=== PATIENT | male | born 1955 | race Caucasian/White ===

== ENCOUNTER 2022-04-08 09:43 | Emergency (ER) | payer OTHER, SELFPAY ==
[2022-04-08 09:57] VITALS: BP 120/83; PULSE 78; RESP 18; TEMP 36.7; O2SAT 93; BMI 31.6
--- NOTE | 2022-04-08 10:00 | XR_ITS ---
WS: [id number] Exam: XR chest 1V portable [id number] Date/Time of Exam: 04/08/2022 10:01 AM Reason For Exam: dyspnea/cough No priors. The lungs are fully expanded and clear. Normal cardiomediastinal silhouette. No pleural effusions. Re gional bony structures are unremarkable. XR/XR chest 1V portable [id number] IMPRESSION: 1. No acute cardiopulmonary process.
--- NOTE | 2022-04-08 10:10 | ED_ITS ---
HPI - SOB/Dyspnea General: Chief Complaint: Shortness of Breath/Dyspnea Stated Complaint: SOB, rash on right arm Time Seen by Provider: 04/08/22 09:46 Source: patient Mode of arrival: ambulatory Limitations: no limitations History of Present Illness: HPI Narrative: 66-year-old male who presents to the emergency room complaining of shortness of breath and wheezing. He has a history of COPD has been worsening progressively over the last 3 days. He is had a slight increase in cough nonproductive. No fever sweats or chills. MD elicited complaint: shortness of breath and cough Pertinent past history: COPD Onset (ago): day(s) (3) Timing: constant Severity: mild Exacerbating factors: nothing Relieving factors: nothing Known history of: COPD Associated symptoms: Deny abdominal pain, chest congestion, chest pain, cough, diaphoresis, dizziness, extremity pain, fever(s), hemoptysis, lightheadedness, myalgias, nausea, orthopnea, palpitations, paresthesias, polydipsia, polyuria, rash, sense of impending doom, syncope or vomiting Treatment prior to arrival: none Review of Systems Const: Denies: fever(s), chills, fatigue, malaise or diaphoresis ENMT: Denies: throat pain, ear or mastoid pain, nasal discharge or nasal congestion Card: Denies: chest pain, palpitations, lightheadedness, syncope or orthopnea Resp: Reports: dyspnea, non-productive cough and wheezing; Denies: hemoptysis or chest congestion GI: Denies: abdominal pain, nausea or vomiting : Denies: flank pain, difficulty urinating, dysuria, urinary frequency or urinary urgency Musc: Denies: neck pain, back pain or extremity pain Skin/Breast: Denies: rash or pruritus Neuro: Denies: dizziness Endo: Denies: polyuria or polydipsia Physical Exam Const: COMMON NORMALS: no acute distress GENERAL APPEARANCE: cooperative and comfortable ORIENTATION/CONSCIOUSNESS: Yes awake, Yes oriented to person, Yes oriented to place and Yes oriented to time HENMT: COMMON NORMALS: normocephalic, atraumatic, hearing grossly normal bilaterally, external ears normal, EAC's normal, TM's normal bilaterally and Normal nasal mucous membranes and turbinates present HEAD & SCALP: normocephalic and atraumatic NOSE: Normal nasal mucous membranes and turbinates present EXTERNAL EAR: Yes external ears normal EXTERNAL AUDITORY CANAL: EAC's normal TYMPANIC MEMBRANE: TM's normal bilaterally Eye: COMMON NORMALS: Equal, round and reactive pupils present, EOMs intact bilaterally and conjunctivae normal CONJUNCTIVA: Yes conjunctivae normal PUPIL: Yes Equal, round and reactive pupils present and Yes Pupil accommodation reflex normal Neck/C-Spine: COMMON NORMALS: full ROM, no lymphadenopathy, supple and no JVD Resp: COMMON NORMALS: normal respiratory effort, No retractions and No use of accessory muscles AUSCULTATION: wheezes (mild) Cardio: COMMON NORMALS: no JVD, regular rate, regular rhythm and No murmurs present (Cardio) RATE: regular rate RHYTHM: regular rhythm GI: COMMON NORMALS: Soft to palpation and No hepatosplenomegaly present A USCULTATION: Yes normoactive bowel sounds PALPATION: Yes Soft to palpation, No Tenderness to palpation present (GI), No Guarding due to palpation present (GI) and Yes No hepatosplenomegaly present Extremity: COMMON NORMALS: normal to inspection, capillary refill normal, no clubbing, cyanosis or edema, no calf tenderness and no pedal edema Neuro: SENSORIUM/ORIENTATION: Yes oriented to person, Yes oriented to place and Yes oriented to time Skin: COMMON NORMALS: no rashes or lesions noted GENERAL SKIN EXAM: no rashes or lesions noted Course Vital Signs: Vital signs: Vital Signs Temperature 98.0 F 04/08/22 09:57 Pulse Rate 78 04/08/22 11:17 Respiratory Rate 14 04/08/22 11:17 Blood Pressure 138/82 04/08/22 11:17 Pulse Oximetry 93 04/08/22 11:17 Oxygen Delivery Me thod 04/08/22 10:51 MDM - SOB/Dyspnea Medical Decision Making Chest x-ray is unremarkable vital signs stable. He is improved after nebulizers. He received IV Solu-Medrol. We will discharge him home start orals prednisone taper tomorrow and add doxycycline 100 twice daily for 7 days. Encouraged him to follow-up with his primary care doctor suspect he would benefit from a long-acting management of his symptoms. Medical Records I reviewed the patient's medical records. Lab Data I reviewed the patient's lab results. Labs/Radiology: Radiology Impressions Chest X-Ray 04/08/22 10:00 IMPRESSION: 1. No acute cardiopulmonary process. Discharge Plan Discharge Patient Disposition: Home Clinical Impression: Acute exacerbation of chronic obstructive airways disease Condition: Stable Prescriptions: New doxycycline hyclate 100 mg capsule 100 mg PO BID 10 Days Qty: 20 0RF prednisone 20 mg tablet 20 mg PO TID Qty: 15 0RF Rx Instructions: 1 p.o. 3 times daily x3 days, 1 p.o. twice daily x2 days, 1 p.o. daily x2 days albuterol sulfate 90 mcg/actuation HFA aerosol inhaler 2 inh INHALATION Q4H PRN (Reason: shortness of breath or wheezing) Qty: 18 0RF Discharge Orders: Discharge ED (Routine); Ordered 04/08/22 Ordered By: Sandro Gale Referrals: [facility] [Primary Care Provider] - Patient Instructions: Opioid Safety Activity Restrictions/Additional Instructions: Start steroid taper tomorrow. Start oral antibiotics today. Continue to use albuterol as needed follow-up with your doctor within the week to reevaluate. You may benefit from a long-term inhaled corticosteroid and long-acting beta a gonist for your management of your respiratory disease. Coding Level of Care Code ED Lithographic Press Operator Apprentice for Portia Mcneal
[2022-04-08 10:33] VITALS: PULSE 72; RESP 20; O2SAT 92
[2022-04-08] MEDS: ipratropium-albuterol 3 mL Neb INHALATION (10:33)
[2022-04-08 10:39] VITALS: PULSE 75
[2022-04-08 10:51] VITALS: BP 140/89; PULSE 72; RESP 14; O2SAT 94
[2022-04-08 11:17] VITALS: BP 138/82; PULSE 78; RESP 14; O2SAT 93
[2022-04-08 11:53] VITALS: BP 138/72; PULSE 68; O2SAT 93
== END 2022-04-08 11:55 | disposition home or self-care (01) ==
PROVIDERS: Emergency Provider Family Medicine
DX: J44.1 Chronic obstructive pulmonary disease with (acute) exacerbation (principal)
CPT/HCPCS: 71045; 94640; 96374; 99284; J2930

== ENCOUNTER 2022-05-28 15:48 | Emergency (ER) | payer OTHER, SELFPAY ==
[2022-05-28 16:23] VITALS: BP 127/79; PULSE 89; RESP 17; TEMP 36.4; O2SAT 95; BMI 30.6
--- NOTE | 2022-05-28 18:02 | ED_ITS ---
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 Pt states it just scrapped his head. Pt did not have LOC but is on blood thinners. Pt states his tetanus is UTD. Pt denies any neck pain. bleeding is controlled Associated symptoms: Denies chills, fever(s), nausea, syncope or vomiting Review of Systems Const: Denies: fever(s), chills, body aches, change in appetite, change in weight, fatigue, malaise or diaphoresis Eyes: Denies: change in vision, blurry vision, blind spots, photophobia, eye discomfort, eye discharge, eye redness, floaters or seeing flashes ENMT: Denies: throat pain, uvular edema, enlarged tonsils, odynophagia, hoarseness, mouth pain, swelling of lips/tongue, oral sores, bleeding gums, dental pain, dry mouth, ear or mastoid pain, ear discharge, change in hearing, tinnitus, disequilibrium, nasal discharge, nasal congestion, post nasal drip or sinus pain Card: Denies: chest pain, palpitations, irregular heart rhythm, edema, swelling of feet/ankles, lightheadedness, syncope, pre-syncope, dyspnea on exertion, orthopnea, leg pain with exertion or acrocyanosis Resp: Denies: dyspnea, productive cough, non-productive cough, wheezing, stridor, pain on inspiration, change in phlegm color, hemoptysis or chest congestion GI: Denies: abdominal pain, nausea, vomiting, hematemesis, dysphagia, diarrhea, constipation, GI cramping, change in bowel habits or rectal pain : Denies: flank pain, dysuria, urinary frequency, urinary urgency, urinary hesitancy or hematuria Musc: Denies: neck pain, back pain, extremity pain, extremity swelling, joint pain, joint swelling, joint redness, joint warmth or deformity Skin/Breast: Denies: rash, pruritus, erythema, sores, new lesions, changes in skin color or dry skin Neuro: Denies: numbness in extremities, weakness in extremities, sensory changes, lack of coordination, difficulty walking, frequent falls, dizziness, vertigo, confusion, behavioral changes, Slurred speech present, difficulty communicating thoughts or seizure-like activity Psych: Denies: anxiety, depression, suicidal ideation or homicidal ideation Endo: Denies: polyuria, polydipsia, tired all the time, cold intolerance, excessive sweating, flushing, hot flashes or heat intolerance [place]/Lymph: Denies: easy bruising, easy bleeding, petechiae, purpura, enlarged lymph nodes or tender lymph nodes All/Imm: Denies: urticaria, throat swelling, tongue swelling, facial swelling, acute wheezing or itchy eyes Physical Exam Const: COMMON NORMALS: no acute distress, patient oriented x3, healthy appearing, alert and well nourished GENERAL APPEARANCE: cooperative, comfortable, well kempt and well developed; not ill appearing ORIENTATION/CONSCIOUSNESS: Yes awake, Yes oriented to person, Yes oriented to place and Yes oriented to time HENMT: COMMON NORMALS: normocephalic, atraumatic, hearing grossly normal bilaterally, external ears normal, EAC's normal, TM's normal bilaterally, Normal external nose present, Normal nasal mucous membranes and turbinates present and moist oral mucous membranes HEAD & SCALP: normal to inspection, normocephalic and atraumatic FACE & SINUS: normal facial exam, sinuses nontender and face symmetric NOSE: Normal external nose present, Normal nares present, Normal nasal mucous membranes and turbinates present, No nasal discharge present and Abnormal external nose present EXTERNAL EAR: Yes external ears normal and Yes mastoids normal EXTERNAL AUDITORY CANAL: EAC's normal TYMPANIC MEMBRANE: TM's normal bilaterally MOUTH: Normal oral and palatal mucosa present, lip normal, tongue normal and Normal salivary glands and ducts present THROAT: no uvular edema Eye: COMMON NORMALS: Equal, round and reactive pupils present, EOMs intact bilaterally, conjunctivae normal, no scleral icterus and no papilledema GENERAL EYE: appearance normal, both eyes and all related structures EYELID: eyelids normal CONJUNCTIVA: Yes conjunctivae normal SCLERA: sclerae normal CORNEA: Yes corneas normal PUPIL: Yes Equal, round and reactive pupils present DIRECT OPHTHALMOSCOPY: Yes no papilledema Neck/C-Spine: COMMON NORMALS: full ROM, no lymphadenopathy, supple, no meningeal signs, no JVD and Thyroid normal GENERAL: Yes normal visual insp ection and Yes trachea midline THYROID: Thyroid normal CERVICAL SPINE: Yes cervical ROM normal Resp: COMMON NORMALS: normal respiratory effort, No retractions, No use of accessory muscles and clear to auscultation bilaterally EFFORT & INSPECTION: Yes able to speak in complete sentences and Yes symmetric chest movement AUSCULTATION: clear to auscultation bilaterally Cardio: COMMON NORMALS: no JVD, regular rate and regular rhythm RATE: regular rate RHYTHM: regular rhythm : COMMON NORMALS: Yes no CVA tenderness BLADDER/KIDNEY EXAM: Yes no CVA tenderness Back/Pelvis: COMMON NORMALS: no CVA tenderness, thoracic and lumbar spine normal to inspection, no thoracic nor lumbar tenderness, thoraco-lumbar ROM normal and straight leg raise negative bilaterally THORACIC SPINE/UPPER BACK: Yes normal to inspection LUMBAR SPINE/LOWER BACK: Yes normal to inspection Neuro: COMMON NORMALS: patient oriented x3, CN's II-XII intact bilaterally, moves all extremities, no focal motor deficits, no sensory deficits noted, deep tendon reflexes 2+ bilaterally and gait normal SENSORIUM/ORIENTATION: Yes alert, Yes oriented to person, Yes oriented to place and Yes oriented to time MENINGEAL SIGNS: Yes no meningeal signs CRANIAL NERVES: Yes CN normal except as noted SPEECH: speech normal GAIT: Yes Normal gait present SENSORY EXAM: Yes extremities MOTOR EXAM: 5/5 motor strength present throughout Psych: COMMON NORMALS: mental status grossly normal, Normal thought process present, cooperative, normal affect, speech normal, activity/motor behavior normal, denies hallucinations, denies homicidal ideation and denies suicidal ideation APPEARANCE: Yes grossly normal and Yes well kempt ATTITUDE: Yes calm ACTIVITY/MOTOR BEHAVIOR: Yes appropriate eye contact SPEECH: Yes normal speech THOUGHT PROCESS: Normal thought process present THOUGHT CONTENT: Yes Normal thought content present ATTENTION/CONCENTRATION: Yes attention grossly intact MEMORY/COGNITION: Yes memory grossly intact INSIGHT: Good insight present (Psych) JUDGEMENT: Good judgement present (Psych) Skin: COMMON NORMALS: no rashes or lesions noted, turgor normal, no jaundice, no petechiae and no mottling GENERAL SKIN EXAM: no rashes or lesions noted and turgor normal Procedures Laceration Laceration 1: Site: scalp Side (If applicable): left Size (cm): 2 Description: linear Depth: simple, single layer Local Anesthetic: lidocaine 1% Amount of anesthesia used (mL): 2 Pre-repair: wound explored and irrigated extensively Skin layer closed with: other (5 juvenal) Course Vital Signs: Vital signs: Vital Signs Temperature 97.6 F 05/28/22 16:23 Pulse Rate 89 05/28/22 16:23 Respiratory Rate 17 05/28/22 16:23 Blood Pressure 127/79 05/28/22 16:23 Pulse Oximetry 95 05/28/22 16:23 Oxygen Delivery Me thod 05/28/22 16:23 MDM - Wound/Laceration Medical Decision Making Patient is well appearing non toxic and in no acute distress. 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 Pt states it just scrapped his head. Pt did not have LOC but is on blood thinners. Pt states his tetanus is UTD. Pt denies any neck pain. bleeding is controlled Pt does not want a CT head. I discussed with patient the concerns but he states he does not feel this is necessary. Please see procedure note for wound repair. I discussed return precautions as well as follow up with patient Discharge Plan Discharge Condition: Stable Prescriptions: No Action prednisone 20 mg tablet 20 mg PO TID Qty: 15 0RF Rx Instructions: 1 p.o. 3 times daily x3 days, 1 p.o. twice daily x2 days, 1 p.o. daily x2 days albuterol sulfate 90 mcg/actuation HFA aerosol inhaler 2 inh INHALATION Q4H PRN (Reason: shortness of breath or wheezing) Qty: 18 0RF Coding Level of Care Code ED Associate Professor Of Communication for Portia Mcneal
--- NOTE | 2022-06-05 11:31 | PC.NURSE ---
PT RETURNED FOR STAPLE REMOVAL. 5 JOE REMOVED. WOUND CLEAN, DRY, NO REDNESS NOTED.
== END 2022-05-28 18:19 | disposition home or self-care (01) ==
PROVIDERS: Emergency Provider Registered Nurse
DX: S01.01XA Laceration without foreign body of scalp, initial encounter (principal); W22.09XA Striking against other stationary object, initial encounter
CPT/HCPCS: 12001; 99283

== ENCOUNTER → 2022-06-03 08:44 | Outpatient (BNVA) | payer OTHER, SELFPAY | PROVIDERS: PCP Emergency Medicine Emergency Medical Services; Visit Provider Internal Medicine Pulmonary Disease | DX: J44.9 Chronic obstructive pulmonary disease, unspecified (principal); F17.210 Nicotine dependence, cigarettes, uncomplicated; R06.09 Other forms of dyspnea; Z12.2 Encounter for screening for malignant neoplasm of respiratory organs; Z71.6 Tobacco abuse counseling; G47.33 Obstructive sleep apnea (adult) (pediatric); Z99.89 Dependence on other enabling machines and devices; Z86.711 Personal history of pulmonary embolism; Z79.01 Long term (current) use of anticoagulants | CPT/HCPCS: 99204 ==

== ENCOUNTER 2022-06-24 07:35 | Outpatient (CLI) | payer OTHER, SELFPAY | END 2022-06-24 07:36 | disposition home or self-care (01) | LOC: RT 07:38 | PROVIDERS: PCP Emergency Medicine Emergency Medical Services; Visit Provider Internal Medicine Pulmonary Disease | DX: J44.9 Chronic obstructive pulmonary disease, unspecified (principal) | CPT/HCPCS: 94060; 94618; 94726; 94729; J7613 ==

== ENCOUNTER 2022-06-24 08:28 | Outpatient (CLI) | payer OTHER, SELFPAY ==
--- NOTE | 2022-06-24 08:00 | CT_ITS ---
WS: [id number] LDCT LUNG CANCER SCREENING TECHNIQUE: Noncontrast CT of the chest with coronal and sagittal reformatted images. CLINICAL INFORMATION: lung screening COMPARISON: None. DLP: 74.40 mGy.cm DIvol: Mean CTDIvol: 1.60 (mGy) All CT scans at [facility] use at least one of these dose optimization techniques: automat ed exposure control; mA and/or kV adjustment per patient size (includes targeted exams where dose is matched to clinical indication); or iterative reconstruction. FINDINGS: No suspicious pulmonary parenchymal opacities. No acute pulmonary infiltrates. No focal pneumonia or pleural fluid. Aortic calcification. No mediastinal or hilar lymphadenopathy. No axillary lymphadenop athy. Adrenal glands are normal. Cholecystectomy clips. Normal GE junction. Chronic LEFT rib fractures with callus formation. Chronic anterior wedging in the upper thoracic spine. CT/CT lung screening [id number] IMPRESSION: LUNG-RADS: 1-Negative FOLLOW UP: 12 Month: Continue annual screening with LDCT
== END 2022-06-24 08:29 | disposition home or self-care (01) ==
LOC: RAD 08:28
PROVIDERS: PCP Emergency Medicine Emergency Medical Services; Visit Provider Internal Medicine Pulmonary Disease
DX: Z12.2 Encounter for screening for malignant neoplasm of respiratory organs (principal); F17.210 Nicotine dependence, cigarettes, uncomplicated; J44.9 Chronic obstructive pulmonary disease, unspecified
CPT/HCPCS: 71271

== ENCOUNTER 2022-07-31 10:25 | Emergency (ER) | payer OTHER, SELFPAY ==
[2022-07-31 10:31] VITALS: BP 115/70; PULSE 79; RESP 24; TEMP 36.1; O2SAT 95; BMI 29.0
[2022-07-31 11:36] LABS: Basophils # 0.1 10^3/uL (0.0-0.1); Basophils % 1.2 %; Eosinophils # 0.5 10^3/uL (0.0-0.8); Eosinophils % 5.6 %; Hematocrit 41.1 % (42.0-52.0); Hemoglobin 13.1 g/dL (11.7-16.6); Lymphocytes % 11.3 %; Mean Corpuscular HGB Conc 31.9 g/dL (30.0-36.0); Mean Corpuscular Volume 91.1 fl (80-94); Mean Platelet Volume 10.5 fL (7.4-10.4); Monocytes # 0.6 10^3/uL (0.2-0.9); Monocytes % 6.8 %; Neutrophils # 6.82 10^3/uL (1.8-7.7); Neutrophils % 74.7 %; Nucleated Red Blood Cells % 0 %; Platelet Count 207 10^3/cmm (130-400); Red Blood Count 4.51 10^6/uL (4.1-5.3); Red Cell Distribution Width 12.9 % (12.1-15.1); White Blood Count 9.1 10^3/uL (4.0-10.0)
--- NOTE | 2022-07-31 11:48 | XR_ITS ---
WS: [id number] Exam: XR ribs RT mn 3V w CXR1V [id number] Date/Time of Exam: 07/31/2022 11:48 AM Reason For Exam: pain There appears to be a fracture of the posterior lateral right 10th rib. No other obvious rib fracture s are seen. The right lung is clear and fully expanded. XR/XR ribs RT mn 3V w CXR1V [id number] IMPRESSION: 1. Fracture of the posterior lateral right 10th rib. No pneumothorax.
--- NOTE | 2022-07-31 11:48 | ED_ITS ---
HPI - Abdominal Pain General: Chief Complaint: Abdominal Pain Stated Complaint: fall,abd pain Time Seen by Provider: 07/31/22 10:26 [facility] ED PFSH: Medical History (Updated 06/06/22 @ 09:29 by Ronal Myers MD) BETH on CPAP Pulmonary embolism Social History Smoking and tobacco status: current some day smoker (1 cig/day) cigarettes Packs smoked per day: 2 Years cigarettes smoked: 51 [ Other cigarette details: Started at age 15.] Course Vital Signs: Vital signs: Vital Signs Temperature 96.9 F L 07/31/22 10:31 Pulse Rate 79 07/31/22 10:31 Respiratory Rate 24 H 07/31/22 10:31 Blood Pressure 115/70 07/31/22 10:31 Pulse Oximetry 95 07/31/22 10:31 MDM - Abdominal Pain Lab Data 07/31/22 11:28 07/31/22 11:28 Labs/Radiology: Laboratory Results WBC 9.1 10^3/uL (4.0-10.0) 07/31/22 11:28 RBC 4.51 10^6/uL (4.1-5.3) 07/31/22 11:28 Hgb 13.1 g/dL (11.7-16.6) 07/31/22 11:28 Hct 41.1 % (42.0-52.0) L 07/31/22 11:28 MCV 91.1 fl (80-94) 07/31/22 11:28 MCH 29.0 pg (28.0-34.0) 07/31/22 11:28 MCHC 31.9 g/dL (30.0-36.0) 07/31/22 11:28 RDW 12.9 % (12.1-15.1) 07/31/22 11:28 Plt Count 207 10^3/cmm (130-400) 07/31/22 11:28 MPV 10.5 fL (7.4-10.4) H 07/31/22 11:28 Neut % (Auto) 74.7 % 07/31/22 11:28 Lymph % (Auto) 11.3 % 07/31/22 11:28 [place] % (Auto) 6.8 % 07/31/22 11:28 Eos % (Auto) 5.6 % 07/31/22 11:28 Baso % (Auto) 1.2 % 07/31/22 11:28 Neut # (Auto) 6.82 10^3/uL (1.8-7.7) 07/31/22 11:28 Lymph # (Auto) 1.0 10^3/uL (0.8-4.8) 07/31/22 11:28 [place] # (Auto) 0.6 10^3/uL (0.2-0.9) 07/31/22 11:28 Eos # (Auto) 0.5 10^3/uL (0.0-0.8) 07/31/22 11:28 Baso # (Auto) 0.1 10^3/uL (0.0-0.1) 07/31/22 11:28 Nucleated RBC % (auto) 0 % 07/31/22 11:28 Nucleated RBCs # 0.0 /100WBC 07/31/22 11:28 Discharge Plan Discharge Condition: Stable Prescriptions: No Action buspirone 15 mg tablet 15 mg PO TID ipratropium-albuterol 0.5 mg-3 mg(2.5 mg base)/3 mL solution for nebulization 3 ml inhalation Q6H PRN levalbuterol tartrate 45 mcg/actuation HFA aerosol inhaler 2 inh inhalation Q6H PRN (Reason: shortness of breath or wheezing) guaifenesin 400 mg tablet 400 mg PO QID PRN (Reason: congestion) hydroxyzine HCl 50 mg tablet 50 mg PO BID PRN meloxicam 15 mg tablet 15 mg PO DAILY PRN rivaroxaban 20 mg tablet 20 mg PO DAILY Rx Instructions: must administer with evening meal sertraline 100 mg tablet 200 mg PO DAILY atorvastatin 40 mg tablet 20 mg PO DAILY Breztri Aerosphere 160-9-4.8 mcg/actuation HFA aerosol inhaler 2 inh inhalation BID Qty: 10.7 3RF prednisone 20 mg tablet 20 mg PO TID Qty: 15 0RF Rx Instructions: 1 p.o. 3 times daily x3 days, 1 p.o. twice daily x2 days, 1 p.o. daily x2 days Referrals: Dilshad Anderson DO [Primary Care Provider] - Coding Level of Care Code ED Roll Builder for Portia Mcneal
[2022-07-31 11:52] LABS: Alanine Aminotransferase 16 U/L (0-41); Albumin Level 4.3 g/dL (3.5-5.2); Alkaline Phosphatase 83 U/L (40-130); Anion Gap 12.8 (5-19); Aspartate Amino Transferase 17 U/L (0-40); Blood Urea Nitrogen 20 mg/dL (8-23); Calcium 9.2 mg/dL (8.5-10.5); Carbon Dioxide 27 mmol/L (22-29); Chloride 104 mmol/L (98-107); Globulin 2.3 g/dL (1.3-4.6); Glomerular Filtration Rate 83.9 mL/min (90-130); Glucose 79 mg/dL (65-115); Lipase 23 U/L (13-60); Osmolality Calculated 292 mOsm/kg (285-295); Potassium 3.8 mmol/L (3.5-5.1); Sodium 140 mmol/L (136-145); Total Bilirubin 0.5 mg/dL (0.15-1.2); Total Protein 6.6 g/dL (6.6-8.7)
[2022-07-31 13:43] VITALS: BP 116/80; PULSE 84; RESP 20; O2SAT 94
--- NOTE | 2022-08-01 07:07 | ED_ITS ---
HPI - Chest Pain General: Chief Complaint: Abdominal Pain Stated Complaint: fall,abd pain Time Seen by Provider: 07/31/22 10:26 Source: patient Mode of arrival: ambulatory History of Present Illness: 58-year-old male presents to the emergency room with complaints of rib pain. He was leaning over the edge of the board doing a work he felt the sharp pain he stretched and stood up he felt a popping sensation with deep inspiration and movement he now has sharp pain on the lower right ribs. No hemoptysis no shortness of breath no radiation of the pain in the neck arms or back. Reproducible with palpation and motion and deep i nspiration MD complaint: chest pain Onset (ago): hour(s) Timing of current episode: constant Prior episodes: No Pain location: right chest Pain radiation: none Severity: moderate Quality: sharp Relieving factors: remaining still Exacerbating factors: inspiration, palpation and movement Associated symptoms: Deny abdominal pain, diaphoresis, dyspnea, fever(s), leg edema, nausea, palpitations, sense of impending doom, syncope or vomiting Treatment prior to arrival: none Review of Systems Const: Denies: fever(s), chills, fatigue, malaise or diaphoresis ENMT: Denies: throat pain, ear or mastoid pain, nasal discharge or nasal congestion Card: Reports: chest pain; Denies: palpitations, irregular heart rhythm, edema, swelling of feet/ankles or syncope Resp: Denies: dyspnea GI: Denies: abdominal pain, nausea or vomiting : Denies: flank pain, dysuria, urinary frequency or urinary urgency Skin/Breast: Denies: rash or pruritus PFSH ED PFSH: Medical History BETH on CPAP Pulmonary embolism Social History Smoking and tobacco status: current some day smoker (1 cig/day) cigarettes Packs smoked per day: 2 Years cigarettes smoked: 51 [ Other cigarette details: Started at age 15.] Physical Exam Const: GENERAL APPEARANCE: cooperative and comfortable ORIENTATION/CONSCIOUSNESS: Yes awake, Yes oriented to person, Yes oriented to place and Yes oriented to time HENMT: COMMON NORMALS: normocephalic, atraumatic and hearing grossly normal bilaterally HEAD & SCALP: normocephalic and atraumatic Resp: COMMON NORMALS: normal respiratory effort, No retractions, No use of accessory muscles and clear to auscultation bilaterally AUSCULTATION: clear to auscultation bilaterally Cardio: COMMON NORMALS: regular rate, regular rhythm and No murmurs present (Cardio) RATE: regular rate RHYTHM: regular rhythm GI: COMMON NORMALS: Soft to palpation and No hepatosplenomegaly present AUSCULTATION: Yes normoactive bowel sounds PALPATION: Yes Soft to palpation, No Tenderness to palpation present (GI), No Guarding due to palpation present (GI) and Yes No hepatosplenomegaly present Extremity: COMMON NORMALS: normal to inspection, capillary refill normal, no clubbing, cyanosis or edema, no calf tenderness and no pedal edema Neuro: SENSORIUM/ORIENTATION: Yes oriented to person, Yes oriented to place and Yes oriented to time Skin: COMMON NORMALS: no rashes or lesions noted GENERAL SKIN EXAM: no rashes or lesions noted Course Vital Signs: Vital signs: Vital Signs Temperature 96.9 F L 07/31/22 10:31 Pulse Rate 84 07/31/22 13:43 Respiratory Rate 20 H 07/31/22 13:43 Blood Pressure 116/80 07/31/22 13:43 Pulse Oximetry 94 07/31/22 13:43 MDM - Chest Pain Medical Decision Making Plain film shows nondisplaced 10th rib fracture consistent with physical exam findings with reproducible pain with palpation deep inspiration and movement. Patient tolerating well discharged home follow-up as needed Medical Records I reviewed the patient's medical records. Lab Data I reviewed the patient's lab results. 07/31/22 11:28 07/31/22 11:28 Radiology Impressions Ribs X-Ray 07/31/22 11:48 IMPRESSION: 1. Fracture of the posterior lateral right 10th rib. No pneumothorax. Laboratory Results WBC 9.1 10^3/uL (4.0-10.0) 07/31/22 11:28 RBC 4.51 10^6/uL (4.1-5.3) 07/31/22 11:28 Hgb 13.1 g/dL (11.7-16.6) 07/31/22 11:28 Hct 41.1 % (42.0-52.0) L 07/31/22 11:28 MCV 91.1 fl (80-94) 07/31/22 11:28 MCH 29.0 pg (28.0-34.0) 07/31/22 11:28 MCHC 31.9 g/dL (30.0-36.0) 07/31/22 11:28 RDW 12.9 % (12.1-15.1) 07/31/22 11:28 Plt Count 207 10^3/cmm (130-400) 07/31/22 11:28 MPV 10.5 fL (7.4-10.4) H 07/31/22 11:28 Neut % (Auto) 74.7 % 07/31/22 11:28 Lymph % (Auto) 11.3 % 07/31/22 11:28 [place] % (Auto) 6.8 % 07/31/22 11:28 Eos % (Auto) 5.6 % 07/31/22 11:28 Baso % (Auto) 1.2 % 07/31/22 11:28 Neut # (Auto) 6.82 10^3/uL (1.8-7.7) 07/31/22 11:28 Lymph # (Auto) 1.0 10^3/uL (0.8-4.8) 07/31/22 11:28 [place] # (Auto) 0.6 10^3/uL (0.2-0.9) 07/31/22 11:28 Eos # (Auto) 0.5 10^3/uL (0.0-0.8) 07/31/22 11:28 Baso # (Auto) 0.1 10^3/uL (0.0-0.1) 07/31/22 11:28 Nucleated RBC % (auto) 0 % 07/31/22 11:28 Nucleated RBCs # 0.0 /100WBC 07/31/22 11:28 Sodium 140 mmol/L (136-145) 07/31/22 11:28 Potassium 3.8 mmol/L (3.5-5.1) 07/31/22 11:28 Chloride 104 mmol/L (98-107) 07/31/22 11:28 Carbon Dioxide 27 mmol/L (22-29) 07/31/22 11:28 Anion Gap 12.8 (5-19) 07/31/22 11:28 BUN 20 mg/dL (8-23) 07/31/22 11:28 Creatinine 0.9 mg/dL (0.7-1.2) 07/31/22 11:28 GFR Calculation 83.9 mL/min (90-130) L 07/31/22 11:28 Glucose 79 mg/dL (65-115) 07/31/22 11:28 Calculated Osmolality 292 mOsm/kg (285-295) 07/31/22 11:28 Calcium 9.2 mg/dL (8.5-10.5) 07/31/22 11:28 Total Bilirubin 0.5 mg/dL (0.15-1.2) 07/31/22 11:28 AST 17 U/L (0-40) 07/31/22 11:28 ALT 16 U/L (0-41) 07/31/22 11:28 Alkaline Phosphatase 83 U/L (40-130) 07/31/22 11:28 Total Protein 6.6 g/dL (6.6-8.7) 07/31/22 11:28 Albumin 4.3 g/dL (3.5-5.2) 07/31/22 11:28 Globulin 2.3 g/dL (1.3-4.6) 07/31/22 11:28 Lipase 23 U/L (13-60) 07/31/22 11:28 Discharge Plan Discharge Patient Disposition: Home Clinical Impression: Fracture of rib Condition: Stable Prescriptions: New hydrocodone-acetaminophen 5-325 mg tablet 1 tab PO Q6H PRN (Reason: pain) Qty: 25 0RF No Action buspirone 15 mg tablet 15 mg PO TID ipratropium-albuterol 0.5 mg-3 mg(2.5 mg base)/3 mL solution for nebulization 3 ml inhalation Q6H PRN levalbuterol tartrate 45 mcg/actuation HFA aerosol inhaler 2 inh inhalation Q6H PRN (Reason: shortness of breath or wheezing) guaifenesin 400 mg tablet 400 mg PO QID PRN (Reason: congestion) hydroxyzine HCl 50 mg tablet 50 mg PO BID PRN meloxicam 15 mg tablet 15 mg PO DAILY PRN rivaroxaban 20 mg tablet 20 mg PO DAILY Rx Instructions: must administer with evening meal sertraline 100 mg tablet 200 mg PO DAILY atorvastatin 40 mg tablet 20 mg PO DAILY Agustina Garciaphere 160-9-4.8 mcg/actuation HFA aerosol inhaler 2 inh inhalation BID Qty: 10.7 3RF prednisone 20 mg tablet 20 mg PO TID Qty: 15 0RF Rx Instructions: 1 p.o. 3 times daily x3 days, 1 p.o. twice daily x2 days, 1 p.o. daily x2 days Discharge Orders: Discharge ED (Routine); Ordered 07/31/22 Ordered By: Sandro Gale Referrals: Dilshad Anderson, [Primary Care Provider] - Discharge Diet: Usual diet Discharge Activity: Increase activity as tolerated Patient Instructions: Opioid Safety, Pain Management Activity Restrictions/Additional Instructions: Seen today for rib pain. X-ray showed you did have a small fracture on the 10th rib on the right. Use medication above. Avoid any activities that exacerbate the pain. Coding Level of Care Code ED Bulb Sorter for Portia Mcneal
== END 2022-07-31 13:44 | disposition home or self-care (01) ==
PROVIDERS: Emergency Provider Family Medicine; PCP Emergency Medicine Emergency Medical Services
DX: S22.31XA Fracture of one rib, right side, initial encounter for closed fracture (principal); F17.210 Nicotine dependence, cigarettes, uncomplicated; X50.9XXA Other and unspecified overexertion or strenuous movements or postures, initial encounter
CPT/HCPCS: 71101; 80053; 83690; 85025; 99284

== ENCOUNTER 2022-08-03 15:10 | Emergency (ER) | payer OTHER, SELFPAY ==
[2022-08-03 15:11] VITALS: BP 128/84; PULSE 86; RESP 18; TEMP 36.9; O2SAT 93; BMI 30.2
--- NOTE | 2022-08-03 15:16 | XRR_ITS ---
PROCEDURE INFORMATION: Exam: XR Chest Exam date and time: 08/03/2022 3:32 PM Age: 66 years old Clinical indication: Cough and shortness of breath; Additional info: Dyspnea/cough TECHNIQUE: Imaging protocol: Radiologic exam of the chest. Views: 1 view. COMPARISON: CR XR ribs RT mn 3V w CXR1V [id number] 07/31/2022 11:53 AM FINDINGS: Lungs: Mild COPD. No consolidation has developed. Pleural spaces: Unremarkable. No pleural effusion. No pneumothorax. Heart/Mediastinum: Heart is normal size. Diffuse vascular calcification. Bones/joints: A few subtle bilateral old rib deformities are likely. Suspected right 10th rib acute fracture on recent x-ray rib series is not well seen at this time. XR/XR chest 1V portable [id number] IMPRESSION: 1. No definite acute finding. 2. The known, suspected right 10th rib fracture is better seen on the right rib x-ray series from 07/31/2022. See that report. From that time, there is no evidence of pneumothorax or other change.
--- NOTE | 2022-08-03 15:16 | W.ED.GENADLT ---
HPI - General Adult General: Chief complaint: Shortness of Breath/Dyspnea Stated complaint: SOB Time Seen by Provider: 08/03/22 15:14 Source: patient Mode of arrival: EMS History of Present Illness: 66-year-old male was seen 2 days ago with 1/10 rib fracture he still having shortness of breath and pain he still has about half the hydrocodone left over he gave me is not had any hemoptysis. No fever sweats chills or productive cough he has a history of COPD. Onset (ago): day(s) (2) Severity: moderate Quality: sharp Pain Consistency: intermittent Relieving factors: rest Exacerbating factors: movement Associated symptoms: Reports chest pain; Deny confusion, cough, diaphoresis, decreased appetite, dyspnea, fevers/chills, headache(s), malaise, nausea, rash, palpitations, seizures, short of breath, syncope, vomiting or weakness Treatments prior to arrival: none Review of Systems Const: Denies: fever(s), chills, malaise or diaphoresis ENMT: Denies: throat pain, ear or mastoid pain, nasal discharge or nasal congestion Card: Reports: chest pain; Denies: palpitations, irregular heart rhythm, edema, syncope or dyspnea on exertion Resp: Denies: dyspnea, productive cough, non-productive cough or wheezing GI: Denies: abdominal pain, nausea or vomiting : Denies: flank pain, dysuria, urinary frequency or urinary urgency Skin/Breast: Denies: rash Neuro: Denies: headache(s) or confusion PFSH ED PFSH: Medical History BETH on CPAP Pulmonary embolism Social History Smoking and tobacco status: current some day smoker (1 cig/day) cigarettes Packs smoked per day: 2 Years cigarettes smoked: 51 [ Other cigarette details: Started at age 15.] Physical Exam Const: COMMON NORMALS: no acute distress GENERAL APPEARANCE: cooperative and comfortable ORIENTATION/CONSCIOUSNESS: Yes awake, Yes oriented to person, Yes oriented to place and Yes oriented to time HENMT: COMMON NORMALS: normocephalic, atraumatic and hearing grossly normal bilaterally HEAD & SCALP: normocephalic and atraumatic Resp: COMMON NORMALS: normal respiratory effort, No retractions, No use of accessory muscles and clear to auscultation bilaterally AUSCULTATION: clear to auscultation bilaterally Cardio: COMMON NORMALS: regular rate, regular rhythm and No murmurs present (Cardio) RATE: regular rate RHYTHM: regular rhythm GI: COMMON NORMALS: Soft to palpation and No hepatosplenomegaly present AUSCULTATION: Yes normoactive bowel sounds PALPATION: Yes Soft to palpation, No Tenderness to palpation present (GI), No Guarding due to palpation present (GI) and Yes No hepatosplenomegaly present Extremity: COMMON NORMALS: normal to inspection, capillary refill normal, no clubbing, cyanosis or edema, no calf tenderness and no pedal edema Neuro: SENSORIUM/ORIENTATION: Yes oriented to person, Yes oriented to place and Yes oriented to time Skin: COMMON NORMALS: no rashes or lesions noted GENERAL SKIN EXAM: no rashes or lesions noted Course Vital Signs: Vital signs: Vital Signs Temperature 98.5 F 08/03/22 15:11 Pulse Rate 81 08/03/22 16:45 Respiratory Rate 16 08/03/22 16:45 Blood Pressure 128/84 08/03/22 16:45 Pulse Oximetry 92 08/03/22 16:45 Oxygen Delivery Me thod 08/03/22 16:45 MDM - General Adult Medical Decision Making Oxygen saturations are normal pain is well controlled in the emergency room he still has some coarse breath sounds expiratory wheezes is not been using albuterol regularly. After nebulizer treatment he is improved. Discharge home offered albuterol nebs he states he already has some at home encouraged him to use those regularly continue to use pain medications as previously prescribed follow-up with primary care doctor as needed. Medical Records I reviewed the patient's medical records. Lab Data I reviewed the patient's lab results. 08/03/22 14:52 08/03/22 14:52 Radiology Impressions Chest X-Ray 08/03/22 15:16 IMPRESSION: 1. No definite acute finding. 2. The known, suspected right 10th rib fracture is better seen on the right rib x-ray series from 07/31/2022. See that report. From that time, there is no evidence of pneumothorax or other change. Laboratory Results WBC 6.2 10^3/uL (4.0-10.0) 08/03/22 14:52 RBC 4.42 10^6/uL (4.1-5.3) 08/03/22 14:52 Hgb 12.8 g/dL (11.7-16.6) 08/03/22 14:52 Hct 39.0 % (42.0-52.0) L 08/03/22 14:52 MCV 88.2 fl (80-94) 08/03/22 14:52 MCH 29.0 pg (28.0-34.0) 08/03/22 14:52 MCHC 32.8 g/dL (30.0-36.0) 08/03/22 14:52 RDW 12.7 % (12.1-15.1) 08/03/22 14:52 Plt Count 232 10^3/cmm (130-400) 08/03/22 14:52 MPV 11.0 fL (7.4-10.4) H 08/03/22 14:52 Neut % (Auto) 64.7 % 08/03/22 14:52 Lymph % (Auto) 14.8 % 08/03/22 14:52 [place] % (Auto) 7.6 % 08/03/22 14:52 Eos % (Auto) 11.4 % 08/03/22 14:52 Baso % (Auto) 1.0 % 08/03/22 14:52 Neut # (Auto) 3.98 10^3/uL (1.8-7.7) 08/03/22 14:52 Lymph # (Auto) 0.9 10^3/uL (0.8-4.8) 08/03/22 14:52 [place] # (Auto) 0.5 10^3/uL (0.2-0.9) 08/03/22 14:52 Eos # (Auto) 0.7 10^3/uL (0.0-0.8) 08/03/22 14:52 Baso # (Auto) 0.1 10^3/uL (0.0-0.1) 08/03/22 14:52 Nucleated RBC % (auto) 0 % 08/03/22 14:52 Nucleated RBCs # 0.0 /100WBC 08/03/22 14:52 Sodium 139 mmol/L (136-145) 08/03/22 14:52 Potassium 3.8 mmol/L (3.5-5.1) 08/03/22 14:52 Chloride 102 mmol/L (98-107) 08/03/22 14:52 Carbon Dioxide 27 mmol/L (22-29) 08/03/22 14:52 Anion Gap 13.8 (5-19) 08/03/22 14:52 BUN 14 mg/dL (8-23) 08/03/22 14:52 Creatinine 1.0 mg/dL (0.7-1.2) 08/03/22 14:52 GFR Calculation 74.3 mL/min (90-130) L 08/03/22 14:52 Glucose 93 mg/dL (65-115) 08/03/22 14:52 Calculated Osmolality 288 mOsm/kg (285-295) 08/03/22 14:52 Calcium 9.5 mg/dL (8.5-10.5) 08/03/22 14:52 Total Bilirubin 0.2 mg/dL (0.15-1.2) 08/03/22 14:52 AST 16 U/L (0-40) 08/03/22 14:52 ALT 13 U/L (0-41) 08/03/22 14:52 Alkaline Phosphatase 94 U/L (40-130) 08/03/22 14:52 Total Protein 6.7 g/dL (6.6-8.7) 08/03/22 14:52 Albumin 4.2 g/dL (3.5-5.2) 08/03/22 14:52 Globulin 2.5 g/dL (1.3-4.6) 08/03/22 14:52 Discharge Plan Discharge Patient Disposition: Home Clinical Impression: Fracture of rib, COPD (chronic obstructive pulmonary disease) Condition: Stable Prescriptions: No Action buspirone 15 mg tablet 15 mg PO TID ipratropium-albuterol 0.5 mg-3 mg(2.5 mg base)/3 mL solution for nebulization 3 ml inhalation Q6H PRN levalbuterol tartrate 45 mcg/actuation HFA aerosol inhaler 2 inh inhalation Q6H PRN (Reason: shortness of breath or wheezing) guaifenesin 400 mg tablet 400 mg PO QID PRN (Reason: congestion) hydroxyzine HCl 50 mg tablet 50 mg PO BID PRN meloxicam 15 mg tablet 15 mg PO DAILY PRN rivaroxaban 20 mg tablet 20 mg PO DAILY Rx Instructions: must administer with evening meal sertraline 100 mg tablet 200 mg PO DAILY atorvastatin 40 mg tablet 20 mg PO DAILY Breztri Aerosphere 160-9-4.8 mcg/actuation HFA aerosol inhaler 2 inh inhalation BID Qty: 10.7 3RF hydrocodone-acetaminophen 5-325 mg tablet 1 tab PO Q6H PRN (Reason: pain) Qty: 25 0RF prednisone 20 mg tablet 20 mg PO TID Qty: 15 0RF Rx Instructions: 1 p.o. 3 times daily x3 days, 1 p.o. twice daily x2 days, 1 p.o. daily x2 days Discharge Orders: Discharge ED (Routine); Ordered 08/03/22 Ordered By: Sandro Gale Referrals: Dilshad Anderson DO [Primary Care Provider] - Discharge Diet: Usual diet Discharge Activity: Increase activity as tolerated Patient Instructions: Opioid Safety, Pain Management Activity Restrictions/Additional Instructions: Continue to use hydrocodone previously prescribed for pain. Use your nebulizer for shortness of breath cough or wheezing. Follow-up with your primary care doctor in the next 2 to 3 days. Coding Level of Care Code ED Crematory Attendant for Portia Mcneal
--- NOTE | 2022-08-03 15:44 | ECG_ITS ---
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 Measurements Intervals [place] Rate: 83 P: 60 NV: 150 QRS: 48 QRSD: 105 T: 61 QT: 354 QTc: 418 Interpretive Statements SINUS RHYTHM POSSIBLE INFERIOR MYOCARDIAL INFARCTION , PROBABLY OLD [30 ms Q WAVE IN II/aVF] No previous ECG available for comparison Electronically Signed On 08-04-2022 8:02:05 MULTICUT LINE OPERATOR by Bridget Rodriguez M.D. [email or web address]
[2022-08-03] MEDS: ipratropium-albuterol 3 mL Neb INHALATION (15:51)
[2022-08-03 15:52] VITALS: PULSE 88; RESP 16; O2SAT 94
[2022-08-03 16:00] VITALS: PULSE 85; RESP 16; O2SAT 94
[2022-08-03 16:01] LABS: Basophils # 0.1 10^3/uL (0.0-0.1); Eosinophils # 0.7 10^3/uL (0.0-0.8); Eosinophils % 11.4 %; Hemoglobin 12.8 g/dL (11.7-16.6); Lymphocytes # 0.9 10^3/uL (0.8-4.8); Lymphocytes % 14.8 %; Mean Corpuscular HGB Conc 32.8 g/dL (30.0-36.0); Mean Corpuscular Volume 88.2 fl (80-94); Monocytes # 0.5 10^3/uL (0.2-0.9); Monocytes % 7.6 %; Neutrophils # 3.98 10^3/uL (1.8-7.7); Neutrophils % 64.7 %; Nucleated Red Blood Cells % 0 %; Platelet Count 232 10^3/cmm (130-400); Red Blood Count 4.42 10^6/uL (4.1-5.3); Red Cell Distribution Width 12.7 % (12.1-15.1); White Blood Count 6.2 10^3/uL (4.0-10.0)
[2022-08-03 16:13] LABS: Alanine Aminotransferase 13 U/L (0-41); Albumin Level 4.2 g/dL (3.5-5.2); Alkaline Phosphatase 94 U/L (40-130); Anion Gap 13.8 (5-19); Aspartate Amino Transferase 16 U/L (0-40); Blood Urea Nitrogen 14 mg/dL (8-23); Calcium 9.5 mg/dL (8.5-10.5); Carbon Dioxide 27 mmol/L (22-29); Chloride 102 mmol/L (98-107); Globulin 2.5 g/dL (1.3-4.6); Glomerular Filtration Rate 74.3 mL/min (90-130); Glucose 93 mg/dL (65-115); Osmolality Calculated 288 mOsm/kg (285-295); Potassium 3.8 mmol/L (3.5-5.1); Sodium 139 mmol/L (136-145); Total Bilirubin 0.2 mg/dL (0.15-1.2); Total Protein 6.7 g/dL (6.6-8.7)
[2022-08-03 16:45] VITALS: BP 128/84; PULSE 81; RESP 16; O2SAT 92
== END 2022-08-03 16:59 | disposition home or self-care (01) ==
PROVIDERS: Emergency Provider Family Medicine; PCP Emergency Medicine Emergency Medical Services
DX: J44.9 Chronic obstructive pulmonary disease, unspecified (principal); S22.31XA Fracture of one rib, right side, initial encounter for closed fracture; F17.210 Nicotine dependence, cigarettes, uncomplicated; X58.XXXA Exposure to other specified factors, initial encounter
CPT/HCPCS: 71045; 80053; 85025; 93005; 94640; 99285

== ENCOUNTER 2022-08-04 04:51 | Inpatient (IN) | payer OTHER, SELFPAY ==
[2022-08-04] VITALS (68 sets, daily range): BP systolic 127–162; BP diastolic 69–106; PULSE 53–797; RESP 13–33; TEMP 36.7–37.2; O2SAT 92–97; BMI 30.2
--- NOTE | 2022-08-04 04:55 | XRR_ITS ---
PROCEDURE INFORMATION: Exam: XR Chest Exam date and time: 08/04/2022 5:16 AM Age: 66 years old Clinical indication: Cough and shortness of breath and wheezing; Patient HX: C/O worsening SOB and dyspnea. Audible wheezing. Sustained lateral RT 10th rib fracture from fall on 07/31/2022. History of copd. TECHNIQUE: Imaging protocol: Radiologic exam of the chest. Views: 1 view. COMPARISON: CR XR chest 1V portable [id number] 08/03/2022 3:32 PM FINDINGS: Lungs: Mild COPD.. No consolidation. Pleural spaces: Unremarkable. No pleural effusion. No pneumothorax. Heart/Mediastinum: Unremarkable. No cardiomegaly. Vasculature: Advanced diffuse vascular calcification noted. Bones/joints: A few old left lateral rib deformities are possible but not definite. XR/XR chest 1V portable [id number] IMPRESSION: No acute findings.
--- NOTE | 2022-08-04 04:56 | ED_ITS ---
Documented by User: Moose Flores MD 08/04/22 04:58 HPI - SOB/Dyspnea General: Chief Complaint: Shortness of Breath/Dyspnea Stated Complaint: DIFF BREATHING Time Seen by Provider: 08/04/22 04:52 Source: patient and EMS Mode of arrival: EMS Limitations: no limitations History of Present Illness: HPI Narrative: 66-year-old male has a history of COPD he had a fall a week ago he states he been having some increasing shortness of breath since then he was seen here yesterday with a COPD exacerbation he states that tonight his wheezing and breathing got much worse he states he is done breathing treatments at home EMS states when they arrived he was 85% on room air he does not wear oxygen at home patient was given another breathing treatment and Solu-Medrol in route he still has wheezing. He denies any pain currently denies any fever he has had an increasing cough. Associated symptoms: Deny abdominal pain, chest pain, fever(s), nausea or vomiting Review of Systems Const: Denies: fever(s), chills, body aches or change in appetite Eyes: Denies: blurry vision or eye discomfort ENMT: Denies: throat pain or dental pain Card: Denies: chest pain Resp: Reports: dyspnea, non-productive cough and wheezing GI: Denies: abdominal pain, nausea, vomiting or diarrhea : Denies: dysuria Musc: Denies: neck pain or back pain Skin/Breast: Denies: rash Neuro: Denies: headache(s) Psych: Denies: depression Fermin/Lymph: Denies: easy bruising All/Imm: Denies: urticaria PFSH ED PFSH: Medical History BETH on CPAP Pulmonary embolism Social History Smoking and tobacco status: current some day smoker (1 cig/day) cigarettes Packs smoked per day: 2 Years cigarettes smoked: 51 [ Other cigarette details: Started at age 15.] Physical Exam Const: COMMON NORMALS: patient oriented x3 GENERAL APPEARANCE: in distress HENMT: COMMON NORMALS: normocephalic and atraumatic HEAD & SCALP: normocephalic and atraumatic Eye: COMMON NORMALS: Equal, round and reactive pupils present and EOMs intact bilaterally PUPIL: Yes Equal, round and reactive pupils present Neck/C-Spine: COMMON NORMALS: full ROM and supple Chest: COMMONS NORMALS: normal inspection of the chest and normal palpation of entire chest wall Resp: EFFORT & INSPECTION: Yes tachypneic, Yes respiratory distress and Yes labored AUSCULTATION: wheezes Cardio: COMMON NORMALS: regular rate, regular rhythm and No murmurs present (C ardio) RATE: regular rate RHYTHM: regular rhythm GI: COMMON NORMALS: Normal to inspection, nondistended, normoactive bowel sounds present, Soft to palpation, non-tender and no masses PALPATION: Yes Soft to palpation Extremity: COMMON NORMALS: normal to inspection and full ROM Neuro: COMMON NORMALS: patient oriented x3, moves all extremities and no focal motor deficits Psych: COMMON NORMALS: mental status grossly normal, Normal thought process present and cooperative THOUGHT PROCESS: Normal thought process present Skin: COMMON NORMALS: no rashes or lesions noted and no wounds GENERAL SKIN EXAM: no rashes or lesions noted Course Vital Signs: Vital signs: Vital Signs Temperature 98.8 F 08/04/22 05:06 Pulse Rate 74 08/04/22 07:46 Respiratory Rate 26 H 08/04/22 07:09 Blood Pressure 151/106 08/04/22 07:46 Pulse Oximetry 94 08/04/22 07:46 Oxygen Delivery Me thod 08/04/22 07:46 Oxygen Flow Rate 3 08/04/22 05:17 MDM - SOB/Dyspnea Lab Data 08/04/22 04:25 08/04/22 04:25 Labs/Radiology: Radiology Impressions Chest X-Ray 08/04/22 04:55 IMPRESSION: No acute findings. Chest CTA 08/04/22 04:56 IMPRESSION: 1. No focal PE identified. 2. Mild COPD with a few scattered areas of very subtle atelectasis or pneumonitis. These findings are new from 06/24/2022 and may be due to a subtle atypical infection such as viral or mycoplasma. In this patient, a six-month follow-up seems reasonable. 3. Bilateral rib deformities with no evidence of effusion or pneumothorax. Likely recent right 10th rib fracture. Otherwise, old rib deformities are present. 4. Vascular calcification and other chronic findings. Laboratory Results WBC 7.8 10^3/uL (4.0-10.0) 08/04/22 04:25 RBC 4.42 10^6/uL (4.1-5.3) 08/04/22 04:25 Hgb 12.9 g/dL (11.7-16.6) 08/04/22 04:25 Hct 39.7 % (42.0-52.0) L 08/04/22 04:25 MCV 89.8 fl (80-94) 08/04/22 04:25 MCH 29.2 pg (28.0-34.0) 08/04/22 04:25 MCHC 32.5 g/dL (30.0-36.0) 08/04/22 04:25 RDW 12.7 % (12.1-15.1) 08/04/22 04:25 Plt Count 209 10^3/cmm (130-400) 08/04/22 04:25 MPV 10.6 fL (7.4-10.4) H 08/04/22 04:25 Neut % (Auto) 73.8 % 08/04/22 04:25 Lymph % (Auto) 6.5 % 08/04/22 04:25 [place] % (Auto) 6.4 % 08/04/22 04:25 Eos % (Auto) 11.8 % 08/04/22 04:25 Baso % (Auto) 1.0 % 08/04/22 04:25 Neut # (Auto) 5.77 10^3/uL (1.8-7.7) 08/04/22 04:25 Lymph # (Auto) 0.5 10^3/uL (0.8-4.8) L 08/04/22 04:25 [place] # (Auto) 0.5 10^3/uL (0.2-0.9) 08/04/22 04:25 Eos # (Auto) 0.9 10^3/uL (0.0-0.8) H 08/04/22 04:25 Baso # (Auto) 0.1 10^3/uL (0.0-0.1) 08/04/22 04:25 Nucleated RBC % (auto) 0 % 08/04/22 04:25 Nucleated RBCs # 0.0 /100WBC 08/04/22 04:25 Specimen Type Arterial 08/04/22 05:16 Sample Site Brachial, left 08/04/22 05:16 ABG pH 7.33 (7.35-7.45) L 08/04/22 05:16 ABG pCO2 52.2 mmHg (35-45) H 08/04/22 05:16 ABG pO2 84.0 mmHg (80.0-100.0) 08/04/22 05:16 ABG HCO3 27.7 mmol/L (22-26) H 08/04/22 05:16 ABG Base Excess 0.9 mmol/L (-2.0-2.0) 08/04/22 05:16 Tarun Test N/a 08/04/22 05:16 Hematocrit 40.2 % (42-52) L 08/04/22 05:16 Hgb O2 Saturation 95.6 % (95-100) 08/04/22 05:16 Carboxyhemoglobin 1.1 %THgb (0.4-20.1) 08/04/22 05:16 Methemoglobin 0.1 % (0.4-1.5) L 08/04/22 05:16 Total Hemoglobin 13.1 g/dL (14-18) L 08/04/22 05:16 O2 Delivery Device Nc 08/04/22 05:16 O2 Liters/Min 3.0 % 08/04/22 05:16 FiO2 32.0 % 08/04/22 05:16 Knit Goods Press Hand ID [email or web address] 08/04/22 05:16 Sodium 140 mmol/L (136-145) 08/04/22 04:25 Potassium 4.2 mmol/L (3.5-5.1) 08/04/22 04:25 Chloride 104 mmol/L (98-107) 08/04/22 04:25 Carbon Dioxide 25 mmol/L (22-29) 08/04/22 04:25 Anion Gap 15.2 (5-19) 08/04/22 04:25 BUN 18 mg/dL (8-23) 08/04/22 04:25 Creatinine 0.8 mg/dL (0.7-1.2) 08/04/22 04:25 GFR Calculation 96.1 mL/min (90-130) 08/04/22 04:25 Glucose 112 mg/dL (65-115) 08/04/22 04:25 Calculated Osmolality 293 mOsm/kg (285-295) 08/04/22 04:25 Calcium 8.8 mg/dL (8.5-10.5) 08/04/22 04:25 Total Bilirubin 0.3 mg/dL (0.15-1.2) 08/04/22 04:25 AST 15 U/L (0-40) 08/04/22 04:25 ALT 14 U/L (0-41) 08/04/22 04:25 Alkaline Phosphatase 91 U/L (40-130) 08/04/22 04:25 NT-Pro-B Natriuret Pep 34 pg/mL (0-125) 08/04/22 04:25 Total Protein 6.6 g/dL (6.6-8.7) 08/04/22 04:25 Albumin 4.1 g/dL (3.5-5.2) 08/04/22 04:25 Globulin 2.5 g/dL (1.3-4.6) 08/04/22 04:25 Discharge Plan Discharge Patient Disposition: Admitted As Inpatient Clinical Impression: Acute exacerbation of chronic obstructive airways disease, Fracture of rib Condition: Stable Sign Out Sign Out Data: Patient Sign Out occurred on 08/04/22 at 06:40. Patient's care was discussed, a nd care was transferred from to Sandro Gale DO. Coding Level of Care Code ED Bolt Cutter for Chg Fwd Exam Comprehensive Documented by User: Sandro Gale DO 08/04/22 09:17 HPI - SOB/Dyspnea General: Chief Complaint: Shortness of Breath/Dyspnea Stated Complaint: DIFF BREATHING Time Seen by Provider: 08/04/22 04:52 [facility] ED PFSH: Medical History BETH on CPAP Pulmonary embolism Social History Smoking and tobacco status: current some day smoker (1 cig/day) cigarettes Packs smoked per day: 2 Years cigarettes smoked: 51 [ Other cigarette details: Started at age 15.] Course Vital Signs: Vital signs: Vital Signs Temperature 98.8 F 08/04/22 05:06 Pulse Rate 74 08/04/22 07:46 Respiratory Rate 26 H 08/04/22 07:09 Blood Pressure 151/106 08/04/22 07:46 Pulse Oximetry 94 08/04/22 07:46 Oxygen Delivery Me thod 08/04/22 07:46 Oxygen Flow Rate 3 08/04/22 05:17 MDM - SOB/Dyspnea Medical Decision Making Patient's third visit in the last few days initially came after a fall he had 1/10 rib fracture his back last night we seem to be able to get him tuned up to go home he came back today he is still wheezing excessively states he is using his nebulizers but is now requiring 3 L continuously his O2 sat was 65% on room air. We will place him on observation for COPD exacerbation. Discussed with hospitalist Care assumed at change of shift patient is requiring oxygen hours last time when I see him he did not. He satting in the 60s he still sounds coarse no acute infiltrates will admit for exacerbation of COPD oxygen support aggressive pulmonary toilet and steroids. Medical Records I reviewed the patient's medical records. Lab Data I reviewed the patient's lab results. 08/04/22 04:25 08/04/22 04:25 Labs/Radiology: Radiology Impressions Chest X-Ray 08/04/22 04:55 IMPRESSION: No acute findings. Chest CTA 08/04/22 04:56 IMPRESSION: 1. No focal PE identified. 2. Mild COPD with a few scattered areas of very subtle atelectasis or pneumonitis. These findings are new from 06/24/2022 and may be due to a subtle atypical infection such as viral or mycoplasma. In this patient, a six-month follow-up seems reasonable. 3. Bilateral rib deformities with no evidence of effusion or pneumothorax. Likely recent right 10th rib fracture. Otherwise, old rib deformities are present. 4. Vascular calcification and other chronic findings. Laboratory Results WBC 7.8 10^3/uL (4.0-10.0) 08/04/22 04:25 RBC 4.42 10^6/uL (4.1-5.3) 08/04/22 04:25 Hgb 12.9 g/dL (11.7-16.6) 08/04/22 04:25 Hct 39.7 % (42.0-52.0) L 08/04/22 04:25 MCV 89.8 fl (80-94) 08/04/22 04:25 MCH 29.2 pg (28.0-34.0) 08/04/22 04:25 MCHC 32.5 g/dL (30.0-36.0) 08/04/22 04:25 RDW 12.7 % (12.1-15.1) 08/04/22 04:25 Plt Count 209 10^3/cmm (130-400) 08/04/22 04:25 MPV 10.6 fL (7.4-10.4) H 08/04/22 04:25 Neut % (Auto) 73.8 % 08/04/22 04:25 Lymph % (Auto) 6.5 % 08/04/22 04:25 [place] % (Auto) 6.4 % 08/04/22 04:25 Eos % (Auto) 11.8 % 08/04/22 04:25 Baso % (Auto) 1.0 % 08/04/22 04:25 Neut # (Auto) 5.77 10^3/uL (1.8-7.7) 08/04/22 04:25 Lymph # (Auto) 0.5 10^3/uL (0.8-4.8) L 08/04/22 04:25 [place] # (Auto) 0.5 10^3/uL (0.2-0.9) 08/04/22 04:25 Eos # (Auto) 0.9 10^3/uL (0.0-0.8) H 08/04/22 04:25 Baso # (Auto) 0.1 10^3/uL (0.0-0.1) 08/04/22 04:25 Nucleated RBC % (auto) 0 % 08/04/22 04:25 Nucleated RBCs # 0.0 /100WBC 08/04/22 04:25 Specimen Type Arterial 08/04/22 05:16 Sample Site Brachial, left 08/04/22 05:16 ABG pH 7.33 (7.35-7.45) L 08/04/22 05:16 ABG pCO2 52.2 mmHg (35-45) H 08/04/22 05:16 ABG pO2 84.0 mmHg (80.0-100.0) 08/04/22 05:16 ABG HCO3 27.7 mmol/L (22-26) H 08/04/22 05:16 ABG Base Excess 0.9 mmol/L (-2.0-2.0) 08/04/22 05:16 Tarun Test N/a 08/04/22 05:16 Hematocrit 40.2 % (42-52) L 08/04/22 05:16 Hgb O2 Saturation 95.6 % (95-100) 08/04/22 05:16 Carboxyhemoglobin 1.1 %THgb (0.4-20.1) 08/04/22 05:16 Methemoglobin 0.1 % (0.4-1.5) L 08/04/22 05:16 Total Hemoglobin 13.1 g/dL (14-18) L 08/04/22 05:16 O2 Delivery Device Nc 08/04/22 05:16 O2 Liters/Min 3.0 % 08/04/22 05:16 FiO2 32.0 % 08/04/22 05:16 Knit Goods Press Hand ID [place] 08/04/22 05:16 Sodium 140 mmol/L (136-145) 08/04/22 04:25 Potassium 4.2 mmol/L (3.5-5.1) 08/04/22 04:25 Chloride 104 mmol/L (98-107) 08/04/22 04:25 Carbon Dioxide 25 mmol/L (22-29) 08/04/22 04:25 Anion Gap 15.2 (5-19) 08/04/22 04:25 BUN 18 mg/dL (8-23) 08/04/22 04:25 Creatinine 0.8 mg/dL (0.7-1.2) 08/04/22 04:25 GFR Calculation 96.1 mL/min (90-130) 08/04/22 04:25 Glucose 112 mg/dL (65-115) 08/04/22 04:25 Calculated Osmolality 293 mOsm/kg (285-295) 08/04/22 04:25 Calcium 8.8 mg/dL (8.5-10.5) 08/04/22 04:25 Total Bilirubin 0.3 mg/dL (0.15-1.2) 08/04/22 04:25 AST 15 U/L (0-40) 08/04/22 04:25 ALT 14 U/L (0-41) 08/04/22 04:25 Alkaline Phosphatase 91 U/L (40-130) 08/04/22 04:25 NT-Pro-B Natriuret Pep 34 pg/mL (0-125) 08/04/22 04:25 Total Protein 6.6 g/dL (6.6-8.7) 08/04/22 04:25 Albumin 4.1 g/dL (3.5-5.2) 08/04/22 04:25 Globulin 2.5 g/dL (1.3-4.6) 08/04/22 04:25 Discharge Plan Discharge Patient Disposition: Admitted As Inpatient Clinical Impression: Acute exacerbation of chronic obstructive airways disease, Fracture of rib Condition: Stable Sign Out Sign Out Data: Patient Sign Out occurred on 08/04/22 at 06:40. Patient's care was discussed, and care was transferred from to Sandro Gale DO. Coding Level of Care Code ED Bolt Cutter for Chg Fwd Exam Comprehensive
--- NOTE | 2022-08-04 04:56 | CTR_ITS ---
PROCEDURE INFORMATION: Exam: CTA Chest With Contrast Exam date and time: 08/04/2022 5:42 AM Age: 66 years old Clinical indication: Dyspnea and shortness of breath and wheezing; Patient HX: C/O worsening SOB and dyspnea. Audible wheezing. Sustained lateral RT 10th rib fracture from fall on 07/31/2022. History of copd. TECHNIQUE: Imaging protocol: Computed tomographic angiography of the chest with contrast. 3D rendering (Not supervised by radiologist): MIP and/or 3D reconstructed images were created by the technologist. Radiation optimization: All CT scans at this facility use at least one of these dose optimization techniques: automated exposure control; mA and/or kV adjustment per patient size (includes targeted exams where dose is matched to clinical indication); or iterative reconstruction. Contrast material: OMNI 350; Contrast volume: 85 ml; Contrast route: INTRAVENOUS (IV); COMPARISON: CT lung screening [id number] 06/24/2022 8:32 AM RADIATION DOSE METRICS: Total DLP (mGy-cm): 582.85 FINDINGS: Pulmonary arteries: No main, lobar, or segmental PE identified. Aorta: Unremarkable. No aortic aneurysm. No aortic dissection. Lungs: Mild underlying COPD with mild diffuse interstitial lung scarring. Minimal left midlung tree-in-bud nodular opacity on series 4, image 24, very subtle. Small area of left perihilar hazy airspace disease probable on series 4, image 32. No dominant lung mass or spiculated nodule. Mild scattered areas of atelectasis or interstitial scarring. Pleural spaces: No pneumothorax. No pleural effusion noted. Heart: The heart is not enlarged. No pericardial effusion is noted. Lymph nodes: No bulky hilar or mediastinal lymphadenopathy noted. Gallbladder and bile ducts: Absent gallbladder. Bones/joints: A few old left lateral rib deformities are visualized. Right lateral 10th rib nonacute fracture. Other healing right rib deformities. Old-appearing mild upper thoracic impression on series 11, image 97.0 Soft tissues: Unremarkable. Other findings: Advanced diffuse vascular calcification noted. CT/CT angio chest PE protcl [id number] IMPRESSION: 1. No focal PE identified. 2. Mild COPD with a few scattered areas of very subtle atelectasis or pneumonitis. These findings are new from 06/24/2022 and may be due to a subtle atypical infection such as viral or mycoplasma. In this patient, a six-month follow-up seems reasonable. 3. Bilateral rib deformities with no evidence of effusion or pneumothorax. Likely recent right 10th rib fracture. Otherwise, old rib deformities are present. 4. Vascular calcification and other chronic findings.
[2022-08-04] MEDS: albuterol 2.5 mg/3 mL Neb INHALATION (05:04)
[2022-08-04] MEDS: ipratropium-albuterol 3 mL Neb INHALATION (05:08)
[2022-08-04 05:19] LABS: Basophils # 0.1 10^3/uL (0.0-0.1); Eosinophils # 0.9 10^3/uL (0.0-0.8); Eosinophils % 11.8 %; Hematocrit 39.7 % (42.0-52.0); Hemoglobin 12.9 g/dL (11.7-16.6); Lymphocytes # 0.5 10^3/uL (0.8-4.8); Lymphocytes % 6.5 %; Mean Corpuscular HGB Conc 32.5 g/dL (30.0-36.0); Mean Corpuscular Hemoglobin 29.2 pg (28.0-34.0); Mean Corpuscular Volume 89.8 fl (80-94); Mean Platelet Volume 10.6 fL (7.4-10.4); Monocytes # 0.5 10^3/uL (0.2-0.9); Monocytes % 6.4 %; Neutrophils # 5.77 10^3/uL (1.8-7.7); Neutrophils % 73.8 %; Nucleated Red Blood Cells % 0 %; Platelet Count 209 10^3/cmm (130-400); Red Blood Count 4.42 10^6/uL (4.1-5.3); Red Cell Distribution Width 12.7 % (12.1-15.1); White Blood Count 7.8 10^3/uL (4.0-10.0)
[2022-08-04 05:27] LABS: ABG PCO2 52.2 mmHg (35-45); ABG PH Result 7.33 (7.35-7.45); Arterial Blood Gas Hematocrit 40.2 % (42-52); Base Excess ABG 0.9 mmol/L (-2.0-2.0); Blood Gas Sample Site Brachial, left; Blood Gas Sample Type Arterial; Carboxyhemoglobin 1.1 %THgb (0.4-20.1); HCO3 ABG 27.7 mmol/L (22-26); HGB O2 Sat 95.6 % (95-100); Methemoglobin 0.1 % (0.4-1.5); Oxygen Device NC; Total Hemoglobin 13.1 g/dL (14-18)
[2022-08-04] MEDS: iohexol 350 mg/mL 500 mL Btl (per mL) IV (05:52)
[2022-08-04 05:53] LABS: Alanine Aminotransferase 14 U/L (0-41); Albumin Level 4.1 g/dL (3.5-5.2); Alkaline Phosphatase 91 U/L (40-130); Anion Gap 15.2 (5-19); Aspartate Amino Transferase 15 U/L (0-40); Blood Urea Nitrogen 18 mg/dL (8-23); Calcium 8.8 mg/dL (8.5-10.5); Carbon Dioxide 25 mmol/L (22-29); Chloride 104 mmol/L (98-107); Globulin 2.5 g/dL (1.3-4.6); Glomerular Filtration Rate 96.1 mL/min (90-130); Glucose 112 mg/dL (65-115); NT Pro B Type Natriuretic Pept 34 pg/mL (0-125); Osmolality Calculated 293 mOsm/kg (285-295); Potassium 4.2 mmol/L (3.5-5.1); Sodium 140 mmol/L (136-145); Total Bilirubin 0.3 mg/dL (0.15-1.2); Total Protein 6.6 g/dL (6.6-8.7)
--- NOTE | 2022-08-04 11:23 | P.HP_ITS ---
Providers/Chief Complaint Admitting Physician: Fannie Mensah MD Primary Care Provider: Dilshad Anderson DO Chief Complaint: DIFF BREATHING History of Present Illness Jaswant Macdonald is a 66 year old male who presented to the emergency room with chief complaint of difficulty breathing. His symptoms actually started a few days ago. On July 31 patient was working on a house that he was building. He had to shut off a water pipe because it was frozen and leaned over and fell into a 2 x 4 sustaining a rib fracture to his right 10th rib. He was seen in the ER that day. He was given some pain medication and discharged home. 2 days later he woke up on the around 1:00 in the morning with severe difficulty breathing. He does have a history of sleep apnea and wears a CPAP at night. It was on when he woke up very short of breath and wheezing. He took one of his breathing treatments. He is chronically on levalbuterol because of anxiety that is worse with albuterol. He did a couple of treatments but his breathing was not improving. He checked his oxygen levels and noted them to be as low as 84%. He ended up coming into the emergency room. He was given Solu-Medrol and continuous breathing treatment that date. He clinically improved in the ER and was discharged home. He had difficulty breathing walking out to the car but after that seemed to do okay in the evening. He again this morning woke up in the middle the night with wheezing and difficulty breathing. He had had his CPAP on. He uses breathing treatments but again noted his oxygen saturations were low into the mid 80s. He does not have chronic oxygen. His breathing was not improving and he presented again to the ER this morning. On arrival here oxygen saturations were okay but he had some respiratory distress. He was again given continuous breathing treatment. CTA of the chest did not show any evidence of PE. He has a history of such in 2019 and is on chronic anticoagul ation for this. He has had increased cough the last few days. Has not really had any sputum production. In particular no blood has been noted. Mucus is hard to get up but he constantly feels like he is congested. He has had a headache. During episodes of significant paroxysmal coughing he has had some blurry vision and some nausea with dry heaving. No actual vomiting. He has had some runny nose. No report of any fever. No changes in bowel or bladder function. He is up-to-date on his flu shot, Pneumovax and had 3 doses of COVID vaccination. Work-up in the ER revealed some mild pneumonitis findings or atelectasis on CT. Patient has no known sick contacts. Vitals were stable. Given repeated ED visits with continued difficulty breathing and intermittent hypoxemia patient is being admitted for further care and evaluation is indicated. Review of Systems Const: Denies: fever(s) or chills Eyes: Reports: blurry vision (When breathing is worse and is anxious) ENMT: Reports: throat pain, dry mouth and nasal congestion Card: Reports: dyspnea on exertion; Denies: chest pain (Beyond that where his right 10th rib is broken), edema, lightheadedness or orthopnea Resp: Reports: dyspnea, non-productive cough, wheezing, pain on inspiration (Since rib fracture) and chest congestion (But unable to get anything up); Denies: productive cough or hemoptysis GI: Reports: nausea (With dry heaves after significant coughing); Denies: abdominal pain or change in bowel habits : Denies: difficulty urinating Musc: Reports: extremity pain (Bilateral knee pain for which she is on meloxicam) Skin/Breast: Denies: pruritus or sores Neuro: Reports: headache(s) (Today) and other (Had a fall a couple of months ago); Denies: difficulty walking Psych: Reports: anxiety (Can be significant), panic attacks (At times) and other (PTSD) [place]in/Lymph: Denies: easy bruising or easy bleeding Medications/Allergies Home Medications Medication Instructions Recorded Confirmed Last Taken Type prednisone 20 mg tablet 20 mg PO TID #15 tabs 04/08/22 06/03/22 Unknown Rx atorvastatin 40 mg tablet 20 mg PO DAILY 06/03/22 06/03/22 Unknown History buspirone 15 mg tablet 15 mg PO TID 06/03/22 06/03/22 Unknown History guaifenesin 400 mg tablet 400 mg PO QID PRN congestion 06/03/22 06/03/22 Unknown History hydroxyzine HCl 50 mg tablet 50 mg PO BID PRN 06/03/22 06/03/22 Unknown History ipratropium 0.5 mg-albuterol 3 mg 3 ml inhalation Q6H PRN 06/03/22 06/03/22 Unknown History (2.5 mg base)/3 mL nebulization soln levalbuterol tartrate 45 2 inh inhalation Q6H PRN shortness 06/03/22 06/03/22 Unknown History mcg/actuation aerosol inhaler of breath or wheezing meloxicam 15 mg tablet 15 mg PO DAILY PRN 06/03/22 06/03/22 Unknown History rivaroxaban 20 mg tablet 20 mg PO DAILY 06/03/22 06/03/22 Unknown History sertraline 100 mg tablet 200 mg PO DAILY 06/03/22 06/03/22 Unknown History budesonide 160 mcg-glycopyr 9 2 inh inhalation BID #10.7 grams 06/15/22 Unknown Rx mcg-formot 4.8 mcg/actuation HFA inhaler (Breztri Aerosphere) hydrocodone 5 mg-acetaminophen 325 1 tab PO Q6H PRN pain #25 tabs 07/31/22 Unknown Rx mg tablet diazepam 10 mg tablet 10 mg PO BID PRN Anxiety 08/04/22 08/04/22 Unknown History Allergies Allergy/AdvReac Type Severity Reaction Status Date / Time Penicillins Allergy ALGY-Anaphy Verified 08/04/22 11:57 laxis PFSH Acute PFSH: Medical History (Updated 08/04/22 @ 11:37 by Fannie Mensah MD) Anxiety related to PTSD, can be severe, takes benzodiazepines as needed and buspar scheduled COPD (chronic obstructive pulmonary disease) Erectile dysfunction Hearing loss History of cardiovascular stress test 04/2022 false positive History of PFTs 06/2022 Severe airflow obstruction, no post bronchodilator study, lung volumes not measured, moderate gas transfer defect. Consistent with obs tructive ventilatory disease. Hyperlipidemia Malignant neoplasm of prostate s/p TURP BETH on CPAP Osteoarthritis PTSD (post-traumatic stress disorder) Pulmonary embolism Unprovoked, 2019, on chronic anticoagulation with rivaroxaban, CTA chest 07/2022 with no focal PE identified Surgical History (Updated 08/04/22 @ 11:37 by Fannie Mensah MD) History of appendectomy History of cardiac catheterization 05/2022 [place], no obstructive CAD History of cholecystectomy 2006 History of colonoscopy 2013 no abnormalities History of inguinal hernia repair right History of repair of congenital cleft palate History of thoracotomy trauma from left rib fracture while on anticoagulation History of tonsillectomy History of transurethral resection of prostate 2014, for prostate cancer History of vasectomy with subsequent failed reversal Family History (Updated 08/04/22 @ 11:50 by Fannie Mensah MD) Father Stroke Dementia CAD (coronary artery disease) Other Anxiety Social History (Updated 08/04/22 @ 11:43 by Fannie Mensah MD) Smoking and tobacco status: former smoker (1 cig/day) Quit status (tobacco): has quit using tobacco Former quit date comment: 03/2022 Alcohol intake: current Alcohol intake frequency: few times a week Alcohol type: hard liquor Alcohol use comment: salt and caramel shot Substance/Drug Use: current Substance/Drug use frequency: Special oc cassions/opportunity only Substance/Drug use type: Marijuana Household members: spouse Marital status: service: Yes status details: 15 years [employer], 5 years [employer], 100% service connected Vitals/I&O/Wt Last Vital Signs Temp 98.8 F 08/04/22 05:06 Pulse 78 08/04/22 09:50 Resp 18 08/04/22 09:50 BP 146/88 08/04/22 09:50 Pulse Ox 95 08/04/22 09:50 O2 Del Method 08/04/22 07:46 O2 Flow Rate 3 08/04/22 05:17 Weight last 48 hrs Weight 115.666 kg Physical Exam Narrative: Constitutional: Patient is awake and alert, able to provide history, oriented x4 HEENT: Normocephalic atraumatic, pupils are equal reactive, extraocular movements are intact, nasopharynx with clear rhinorrhea, oropharynx with dry mucous membranes, posteriorly is mildly and erythematous with some scant amount of frothy white saliva Neck: Large but supple Respiratory: Diffuse wheezing noted throughout particularly on expiration with prolonged expiratory phase. Some rhonchi noted in the right base. Chest expansion is equal bilaterally. No splinting noted. Chest wall is tender to palpation as expected in the posterior lateral right 10th rib area where fracture is known. No accessory muscle use noted. Pauses after a sentence to take a couple of breaths before continuing. Cardiovascular: Regular rate and rhythm, no murmurs gallops or rubs, no JVD, brisk capillary refill Abdomen: Soft, rotund, positive bowel sounds, nontender Extremities: No pitting edema, no calf tenderness, no clubbing Skin: Skin is dry, old burn hugh to right medial calf, no large areas of bruising or rash noted Neuro: Speech clear, face symmetric, moves all extremities, handgrip equal Psych: Normal affect Data 08/04/22 04:25 08/04/22 04:25 Other Labs: Radiology Impressions Chest X-Ray 08/04/22 04:55 IMPRESSION: No acute findings. Chest CTA 08/04/22 04:56 IMPRESSION: 1. No focal PE identified. 2. Mild COPD with a few scattered areas of very subtle atelectasis or pneumonitis. These findings are new from 06/24/2022 and may be due to a subtle atypical infection such as viral or mycoplasma. In this patient, a six-month follow-up seems reasonable. 3. Bilateral rib deformities with no evidence of effusion or pneumothorax. Likely recent right 10th rib fracture. Otherwise, old rib deformities are present. 4. Vascular calcification and other chronic findings. Laboratory Results WBC 7.8 10^3/uL (4.0-10.0) 08/04/22 04:25 RBC 4.42 10^6/uL (4.1-5.3) 08/04/22 04:25 Hgb 12.9 g/dL (11.7-16.6) 08/04/22 04:25 Hct 39.7 % (42.0-52.0) L 08/04/22 04:25 MCV 89.8 fl (80-94) 08/04/22 04:25 MCH 29.2 pg (28.0-34.0) 08/04/22 04:25 MCHC 32.5 g/dL (30.0-36.0) 08/04/22 04:25 RDW 12.7 % (12.1-15.1) 08/04/22 04:25 Plt Count 209 10^3/cmm (130-400) 08/04/22 04:25 MPV 10.6 fL (7.4-10.4) H 08/04/22 04:25 Neut % (Auto) 73.8 % 08/04/22 04:25 Lymph % (Auto) 6.5 % 08/04/22 04:25 [place] % (Auto) 6.4 % 08/04/22 04:25 Eos % (Auto) 11.8 % 08/04/22 04:25 Baso % (Auto) 1.0 % 08/04/22 04:25 Neut # (Auto) 5.77 10^3/uL (1.8-7.7) 08/04/22 04:25 Lymph # (Auto) 0.5 10^3/uL (0.8-4.8) L 08/04/22 04:25 [place] # (Auto) 0.5 10^3/uL (0.2-0.9) 08/04/22 04:25 Eos # (Auto) 0.9 10^3/uL (0.0-0.8) H 08/04/22 04:25 Baso # (Auto) 0.1 10^3/uL (0.0-0.1) 08/04/22 04:25 Nucleated RBC % (auto) 0 % 08/04/22 04:25 Nucleated RBCs # 0.0 /100WBC 08/04/22 04:25 Specimen Type Arterial 08/04/22 05:16 Sample Site Brachial, left 08/04/22 05:16 ABG pH 7.33 (7.35-7.45) L 08/04/22 05:16 ABG pCO2 52.2 mmHg (35-45) H 08/04/22 05:16 ABG pO2 84.0 mmHg (80.0-100.0) 08/04/22 05:16 ABG HCO3 27.7 mmol/L (22-26) H 08/04/22 05:16 ABG Base Excess 0.9 mmol/L (-2.0-2.0) 08/04/22 05:16 Tarun Test N/a 08/04/22 05:16 Hematocrit 40.2 % (42-52) L 08/04/22 05:16 Hgb O2 Saturation 95.6 % (95-100) 08/04/22 05:16 Carboxyhemoglobin 1.1 %THgb (0.4-20.1) 08/04/22 05:16 Methemoglobin 0.1 % (0.4-1.5) L 08/04/22 05:16 Total Hemoglobin 13.1 g/dL (14-18) L 08/04/22 05:16 O2 Delivery Device Nc 08/04/22 05:16 O2 Liters/Min 3.0 % 08/04/22 05:16 FiO2 32.0 % 08/04/22 05:16 Clam Shucker ID Home 08/04/22 05:16 Sodium 140 mmol/L (136-145) 08/04/22 04:25 Potassium 4.2 mmol/L (3.5-5.1) 08/04/22 04:25 Chloride 104 mmol/L (98-107) 08/04/22 04:25 Carbon Dioxide 25 mmol/L (22-29) 08/04/22 04:25 Anion Gap 15.2 (5-19) 08/04/22 04:25 BUN 18 mg/dL (8-23) 08/04/22 04:25 Creatinine 0.8 mg/dL (0.7-1.2) 08/04/22 04:25 GFR Calculation 96.1 mL/min (90-130) 08/04/22 04:25 Glucose 112 mg/dL (65-115) 08/04/22 04:25 Calculated Osmolality 293 mOsm/kg (285-295) 08/04/22 04:25 Calcium 8.8 mg/dL (8.5-10.5) 08/04/22 04:25 Total Bilirubin 0.3 mg/dL (0.15-1.2) 08/04/22 04:25 AST 15 U/L (0-40) 08/04/22 04:25 ALT 14 U/L (0-41) 08/04/22 04:25 Alkaline Phosphatase 91 U/L (40-130) 08/04/22 04:25 NT-Pro-B Natriuret Pep 34 pg/mL (0-125) 08/04/22 04:25 Total Protein 6.6 g/dL (6.6-8.7) 08/04/22 04:25 Albumin 4.1 g/dL (3.5-5.2) 08/04/22 04:25 Globulin 2.5 g/dL (1.3-4.6) 08/04/22 04:25 A&P Assessment and plan (1) Acute exacerbation of chronic obstructive airways disease: Suspect secondary to decreased inspiration related to pain from rib fracture however there are some indicators of possible viral process underlying. Clinically has evidence of acute bronchitis. Responded to steroids in the emergency room yesterday for short period of time. Is having associated hypoxemia with saturations down into the 80s during paroxysms of coughing and bronchospasm. Does have evidence of acute hypercapnia on ABG. (2) Fracture of rib: Right 10th rib from a fall over a 2 x 4 on July 31. Was given prescription for hydrocodone at that time to help with pain (3) BETH on CPAP: Uses CPAP with sleep except during situations in which he is experiencing acute difficulty breathing such as the last few days (4) Chronic anticoagulation: With Xarelto secondary to history of PE in 2019. No recent bleeding. Should be noted that patient is chronically on as needed meloxicam for osteoarthritis. (I did take a moment to educate patient on the risk of NSAID use in the setting of anticoagulation) (5) Anxiety: Related to PTSD and more recently due to difficulty breathing. Can be severe and associated with anxiety attacks. Chronically on BuSpar, sertraline and has hydroxyzine as well as Valium as needed for breakthrough severe anxiety. (6) Hyperlipidemia: On chronic atorvastatin Plan Inpatient admission Continue oxygen therapy weaning as able Systemic and inhaled steroids Breathing treatments Incentive spirometer and flutter device Mucolytic's Empiric antibiotics with doxycycline for now Check procalcitonin, viral respiratory panel Continue pain control as needed Ensure laxative therapy on board with narcotics CPAP with sleep Continue home Xarelto Continue home BuSpar and sertraline Will continue home diazepam if needed for significant anxiety but overall need to minimize dosing of benzodiazepines secondary to hypercapnia Continue home statin therapy Holding meloxicam currently Given steroid therapy will add GI prophylaxis Supportive care otherwise Findings, concerns and plans including recent results from PFTs and low-dose CT scan of the chest were discussed with patient and he was given an opportunity to ask questions. Also provided praise for his smoking cessation as of March of this year when he moved into the area and encouraged continued abstinence from smoking. Anticipate discharge home with outpatient follow-up primary care provider at [facility] and possibly with pulmonology here. He has seen and establish initial care with Dr. Myers. Will need home oxygen evaluation prior to discharge to ensure he does not qualify for home oxygen therapy CODE STATUS was discussed with the patient and he is full code however did indicate that if he were ever in a situation in which she had a persistent vegetative state he would not want life-sustaining care in that scenario Attestations Medical Necessity Statement*: Anticipate stay greater than 2 midnights in a gentleman with COPD and acute rib fracture who is experiencing acute COPD exacerbation with hypoxemia, requiring oxygen therapy presently. Not chronically on oxygen. Confounding factors are significant anxiety when he does have respiratory distress as well. Other issues and plans are as noted above. Coding Level of Care Code Acute Range Technician for Jesseg Fwd Diagnoses Acute exacerbation of chronic obstructive airways disease J44.1 Fracture of rib S22.39XA BETH on CPAP G47.33; Z99.89 Chronic anticoagulation Z79.01 Anxiety F41.9 Hyperlipidemia E78.5
--- NOTE | 2022-08-04 14:47 | ECG_ITS ---
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 Measurements Intervals [place] Rate: 81 P: 55 NM: 159 QRS: 53 QRSD: 106 T: 59 QT: 346 QTc: 402 Interpretive Statements SINUS RHYTHM POSSIBLE INFERIOR MYOCARDIAL INFARCTION , PROBABLY OLD [30 ms Q WAVE IN II/aVF] Compared to ECG 08/03/2022 15:44:05 No significant changes Electronically Signed On 08-04-2022 16:16:03 FORMULA MAKER by Scar Wilson M.D. [email or web address]/store/OM/[id number]
[2022-08-04] MEDS: levalbuterol 0.63 mg/3 mL Neb INHALATION ×2 (14:48→20:01)
[2022-08-04] MEDS: predniSONE 20 mg Tablet 40 MG PO (15:30)
[2022-08-04] MEDS: BuSPIRONE 10 mg Tablet 15 MG PO ×2 (15:31→20:52)
[2022-08-04] MEDS: doxycycline 100 mg Tablet PO (17:48)
[2022-08-04] MEDS: docusate sodium 100 mg Capsule PO (17:48)
[2022-08-04] MEDS: guaiFENesin 600 mg Tablet PO (17:48)
--- NOTE | 2022-08-04 19:17 | PC.NURSE ---
Patient arrived to floor via stretcher, ambulated to bed, OOBTC frequently, breath sounds wet and constricted, patient is on oxygen per nasal canula see charting. No c/o pain or discomfort, AAOx4, remaining VSS. No needs at this time. Room clean and clutter free with call light in reach. Report given bedside to oncoming nurse. Tolerating diet and voiding without difficulty.
[2022-08-04] MEDS: budesonide 0.5 mg/2 mL Neb INHALATION (19:58)
[2022-08-05] VITALS (13 sets, daily range): BP systolic 115–147; BP diastolic 63–75; PULSE 60–90; RESP 16–19; TEMP 36.4–36.8; O2SAT 93–98
[2022-08-05 04:46] LABS: ABG PH Result 7.38 (7.35-7.45); Arterial Blood Gas Hematocrit 38.3 % (42-52); Base Excess ABG 2.8 mmol/L (-2.0-2.0); Blood Gas Allen Test Pos; Blood Gas Sample Site Radial, right; HCO3 ABG 28.8 mmol/L (22-26); Oxygen Device NC
[2022-08-05 07:07] LABS: Blood Gas Operator Identificat Anonymous; Blood Gas Sample Type CalVer
[2022-08-05 07:12] LABS: ABG PCO2 37.5 mmHg (35-45)
[2022-08-05] MEDS: budesonide 0.5 mg/2 mL Neb INHALATION ×2 (08:26→20:52)
[2022-08-05] MEDS: levalbuterol 0.63 mg/3 mL Neb INHALATION ×3 (08:26→20:52)
[2022-08-05] MEDS: BuSPIRONE 10 mg Tablet 15 MG PO ×3 (08:31→20:58)
[2022-08-05] MEDS: doxycycline 100 mg Tablet PO ×2 (08:31→17:24)
[2022-08-05] MEDS: predniSONE 20 mg Tablet 40 MG PO (08:31)
[2022-08-05] MEDS: sertraline 100 mg Tablet 200 MG PO (08:31)
[2022-08-05] MEDS: hyDROXYzine 25 mg Capsule 50 MG PO (08:31)
[2022-08-05] MEDS: rivaroxaban 10 mg Tablet 20 MG PO (08:31)
[2022-08-05] MEDS: guaiFENesin 600 mg Tablet PO ×2 (08:32→17:24)
[2022-08-05] MEDS: pantoprazole DR 40 mg Tablet PO (08:32)
[2022-08-05] MEDS: atorvastatin 40 mg Tablet 20 MG PO (08:32)
--- NOTE | 2022-08-05 09:55 | PC.CHAP ---
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 allocations clerk visit [] Patient/Family/Request visit [] Outpatient visit [] Follow-up visit [] Physician referral [] Code/Alert [x] Routine visit [] Staff referral [] Actively dying [] Patient sleeping [] Family support [] [] Out of room [] Palliative care [] [] Receiving care in room [] Pre-surgical visit [] Trauma [] Long length of stay [] ICU visit [] Other: Relational/Emotional Strength [x] Patient feels connected with others/family/visitors/staff [] Distress [] Loneliness/isolation [] Abandonment Spirituality of Patient [x] Person of [place] [] Attends Restorationism of their [place] [x] Believes in Prayer [x] Reads Bible or Druze materials [] There are Spiritual issues to be addressed Forest Products Teacher Interventions [x] Prayer [x] Active listening [x] Non-anxious presence [x] Spiritual/emotional support [] Crisis/trauma care [] Spiritual counseling [] Bereavement support [] Provided bereavement packet [] Provided Bible/devotional materials [] Provided toy/stuffed animal, coloring book to patient or family member [] Provided Communion [] Anointing/[place] [] Salvation [x] Completed spiritual assessment [] Other: Impact on Illness or Injury [] Angry [] Fearful [] Anxious [] Often cries [] Exhaustion [] Unable to work [] Unable to attend evangelical [] Unable to walk/stand [] Unable to read [] Unable to drive [] Unable to eat/drink [] Unable to sleep [] Unable to be with family [] Patient intubated [] Other: Summary Pt has COPD and says his inability to breathe causes anxiety. His 02 is high enough that he is not able to have in home oxygen at this time. 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 He lives with his at home. Currently staying in a 5th wheel but reworking an earth berm home which they plan to live in. Time spent with patient 20m
--- NOTE | 2022-08-05 15:56 | PM.PN ---
Subjective Subjective: Patient still has significant wheezing on exam today, appears flushed and tachypneic with minimal conversation. Hemodynamically stable and afebrile. Vitals/I&O/Wt Last Vital Signs Temp 97.9 F 08/05/22 12:00 Pulse 77 08/05/22 13:54 Resp 18 08/05/22 13:51 BP 143/63 08/05/22 12:00 Pulse Ox 97 08/05/22 13:51 O2 Del Method 08/05/22 13:51 O2 Flow Rate 2 08/05/22 13:51 08/05/22 08/05/22 08/05/22 06:59 14:59 22:59 Intake Total 240 / 480 600 / 600 Balance 240 / 480 600 / 600 Weight last 48 hrs Weight 115.666 kg Physical Exam Narrative: General: No acute distress, AO x3 HEENT: PERRLA, pupils bilaterally equal and reactive, pallors not present Chest: Diffuse bilateral wheezing on exam CVS: S1-S2 regular, no murmurs, no tachycardia, no gallops, no rubs Abdomen: Soft, nontender, no organomegaly, bowel sounds present Neuro: No focal deficits, no facial deformity, AO x3, power 5/5 in all limbs Data 08/04/22 04:25 08/04/22 04:25 A&P Assessment and plan (1) Acute exacerbation of chronic obstructive airways disease: Suspect secondary to decreased inspiration related to pain from rib fracture however there are some indicators of possible viral process underlying. Clinically has evidence of acute bronchitis. He has a longstanding history of COPD and is suffering an exacerbation at this time. Does have evidence of acute hypercapnia on ABG, improved today. Patient states he used to be on oxygen as far back as 2011, he used it for a few months but thereafter the lease therefore he no longer use the machine. At the baseline he has oxygen saturation of around 87%, suspect that he needs oxygen chronically. Currently on treatment with scheduled nebulization with levalbuterol and budesonide , will add ipratropium inhalation along with levalbuterol for anti muscarinic effect change prednisone to iv somuedrol 40mg iv q12h Resp viral panel has not yet been collected (2) Fracture of rib: Right 10th rib from a fall over a 2 x 4 on July 31. Was given prescription for hydrocodone at that time to help with pain, pain controlled at this time (3) BETH on CPAP: Uses CPAP with sleep except during situations in which he is experiencing acute difficulty breathing such as the last few days (4) Chronic anticoagulation: With Xarelto secondary to history of PE in 2019. No recent bleeding. Should be noted that patient is chronically on as needed meloxicam for osteoarthritis. ( (5) Anxiety: Related to PTSD and more recently due to difficulty breathing. Can be severe and associated with anxiety attacks. Chronically on BuSpar, sertraline and has hydroxyzine as well as Valium as needed for breakthrough severe anxiety. (6) Hyperlipidemia: On chronic atorvastatin Attestations Medical Necessity Statement*: Needs continued admission for IV steroids, and o'clock nebulization, significant wheezing, respiratory viral panel pending. Coding Level of Care Code Acute Laminating Machine Tender for Portia Mcneal Diagnoses Acute exacerbation of chronic obstructive airways disease J44.1 Fracture of rib S22.39XA BETH on CPAP G47.33; Z99.89 Chronic anticoagulation Z79.01 Anxiety F41.9 Hyperlipidemia E78.5
[2022-08-05 17:30] LABS: Adenovirus Not Detected (NOT DETECT); Chlamydia Pneumoniae Not Detected (NOT DETECT); Coronavirus 229E,HKU1,NL63,OC4 Not Detected (NOT DETECT); Human Metapneumovirus Not Detected (NOT DETECT); Human Rhinovirus/Enterovirus Not Detected (NOT DETECT); Influenza A Not Detected (NOT DETECT); Influenza A H1 Not Detected (NOT DETECT); Influenza A H1-2009 Not Detected (NOT DETECT); Influenza A H3 Not Detected (NOT DETECT); Influenza B Not Detected (NOT DETECT); Mycoplasma Pneumoniae Not Detected (NOT DETECT); Parainfluenza Virus Type 1 Not Detected (NOT DETECT); Parainfluenza Virus Type 2 Not Detected (NOT DETECT); Parainfluenza Virus Type 3 Not Detected (NOT DETECT); Parainfluenza Virus Type 4 Not Detected (NOT DETECT); Respiratory Syncytial Virus A Not Detected (NOT DETECT); Respiratory Syncytial Virus B Not Detected (NOT DETECT); SARS-COV-2 Not Detected (NOT DETECT)
[2022-08-05] MEDS: ipratropium 0.5 mg/2.5 mL Neb INHALATION (20:52)
[2022-08-06] VITALS (12 sets, daily range): BP systolic 108–144; BP diastolic 48–74; PULSE 61–87; RESP 15–19; TEMP 36.4–36.8; O2SAT 94–98
[2022-08-06] MEDS: levalbuterol 0.63 mg/3 mL Neb INHALATION ×3 (03:50→13:14)
[2022-08-06] MEDS: ipratropium 0.5 mg/2.5 mL Neb INHALATION ×3 (03:51→13:15)
[2022-08-06 04:41] LABS: Basophils % 0.5 %; Eosinophils # 0.1 10^3/uL (0.0-0.8); Eosinophils % 1.8 %; Hematocrit 34.5 % (42.0-52.0); Hemoglobin 11.2 g/dL (11.7-16.6); Lymphocytes # 0.9 10^3/uL (0.8-4.8); Lymphocytes % 12.9 %; Mean Corpuscular HGB Conc 32.5 g/dL (30.0-36.0); Mean Corpuscular Hemoglobin 29.1 pg (28.0-34.0); Mean Corpuscular Volume 89.6 fl (80-94); Mean Platelet Volume 10.6 fL (7.4-10.4); Monocytes # 0.5 10^3/uL (0.2-0.9); Monocytes % 7.6 %; Neutrophils # 5.08 10^3/uL (1.8-7.7); Neutrophils % 76.7 %; Nucleated Red Blood Cells % 0 %; Platelet Count 172 10^3/cmm (130-400); Red Blood Count 3.85 10^6/uL (4.1-5.3); Red Cell Distribution Width 12.8 % (12.1-15.1); White Blood Count 6.6 10^3/uL (4.0-10.0)
[2022-08-06 04:59] LABS: Alanine Aminotransferase 12 U/L (0-41); Albumin Level 3.9 g/dL (3.5-5.2); Alkaline Phosphatase 76 U/L (40-130); Aspartate Amino Transferase 13 U/L (0-40); Blood Urea Nitrogen 18 mg/dL (8-23); Calcium 8.8 mg/dL (8.5-10.5); Carbon Dioxide 28 mmol/L (22-29); Chloride 106 mmol/L (98-107); Glomerular Filtration Rate 83.9 mL/min (90-130); Glucose 109 mg/dL (65-115); Osmolality Calculated 296 mOsm/kg (285-295); Sodium 142 mmol/L (136-145); Total Bilirubin 0.2 mg/dL (0.15-1.2); Total Protein 5.9 g/dL (6.6-8.7)
[2022-08-06] MEDS: budesonide 0.5 mg/2 mL Neb INHALATION (08:49)
[2022-08-06] MEDS: sertraline 100 mg Tablet 200 MG PO (08:52)
[2022-08-06] MEDS: atorvastatin 40 mg Tablet 20 MG PO (08:54)
[2022-08-06] MEDS: hyDROXYzine 25 mg Capsule 50 MG PO (08:54)
[2022-08-06] MEDS: guaiFENesin 600 mg Tablet PO (08:54)
[2022-08-06] MEDS: pantoprazole DR 40 mg Tablet PO (08:54)
[2022-08-06] MEDS: doxycycline 100 mg Tablet PO (08:54)
[2022-08-06] MEDS: rivaroxaban 10 mg Tablet 20 MG PO (08:54)
[2022-08-06] MEDS: BuSPIRONE 10 mg Tablet 15 MG PO ×2 (08:55→16:04)
--- NOTE | 2022-08-06 14:34 | PM.DCS ---
Discharge Providers Date of Admission: 08/04/22 13:24 Date of Discharge: August 06, 2022 Attending Provider at Admission: Steve Guillermo MD Attending Provider at Discharge: Sobeida Love MD Primary Care Provider: Dilshad Anderson DO Diagnoses at Discharge Discharge Diagnosis (1) Acute exacerbation of chronic obstructive airways disease: Status: Acute (2) Fracture of rib: Status: Acute Permanent problem details: right 10th rib (3) BETH on CPAP: Status: Chronic (4) Chronic anticoagulation: Status: Chronic Permanent problem details: xarelto, for history of PE in 2019 (5) Anxiety: Status: Chronic Permanent problem details: related to PTSD, can be severe, takes benzodiazepines as needed and buspar scheduled (6) Hyperlipidemia: Status: Chronic Reason for Visit Reason for Visit: DIFF BREATHING Hospital Course Hospital Course Jaswant Macdonald is a 66 year old male with a past medical history of COPD, sleep apnea, states that he used to be on home oxygen back in 2011, however has not been on supplemental O2 since then. He also has a history of PE in 2014 and is chronically on Xarelto. He presented to the emergency room on August 04, 2022 With chief complaints of shortness of breath. He had recently taken a fall at work and had 10th rib fracture on the right side. His oxygen level was noted to be as low as 84%. He had diffuse wheezing on exam. He was admitted to the hospital in view of acute exacerbation of chronic obstructive airway disease. He was kept on scheduled nebulization with DuoNeb and budesonide , initially on oral prednisone which needed to be switched to IV steroids for better symptomatic relief. On August 06, 2022 he is feeling much improved. He did need 2 to 3 L/min supplemental O2 through August 05. A home O2 evaluation was performed today prior to discharge and patient did not qualify for supplemental O2. He is symptomatically better though still has some scattered wheezing on exam and is recommended to continue his scheduled inhalers per pulmonology's recommendations and also continue DuoNeb nebulization. Additionally he is being discharged with a short course of doxycycline and prednisone. Patient requested a referral to [facility] at discharge for PTSD and anxiety disorder plan has been provided to him at this time. Physical Exam Narrative: General: No acute distress, AO x3 HEENT: PERRLA, pupils bilaterally equal and reactive, pallors not present Chest: Scattered wheezing B/L CVS: S1-S2 regular, no murmurs, no tachycardia, no gallops, no rubs Abdomen: Soft, nontender, no organomegaly, bowel sounds present Neuro: No focal deficits, no facial deformity, AO x3, power 5/5 in all limbs Discharge Data Studies Completed and Pending Completed Studies During Hospitalization Category Date Time Status CTA chest [CT angio chest PE protcl [id number]] Stat Cat Scan 08/04/22 04:56 Completed XR chest 1V portable [id number] Stat Exams 08/04/22 04:55 Completed Radiology Impressions Chest X-Ray 08/04/22 04:55 IMPRESSION: No acute findings. Chest CTA 08/04/22 04:56 IMPRESSION: 1. No focal PE identified. 2. Mild COPD with a few scattered areas of very subtle atelectasis or pneumonitis. These findings are new from 06/24/2022 and may be due to a subtle atypical infection such as viral or mycoplasma. In this patient, a six-month follow-up seems reasonable. 3. Bilateral rib deformities with no evidence of effusion or pneumothorax. Likely recent right 10th rib fracture. Otherwise, old rib deformities are present. 4. Vascular calcification and other chronic findings. Laboratory Results WBC 6.6 10^3/uL (4.0-10.0) 08/06/22 04:16 RBC 3.85 10^6/uL (4.1-5.3) L 08/06/22 04:16 Hgb 11.2 g/dL (11.7-16.6) L 08/06/22 04:16 Hct 34.5 % (42.0-52.0) L 08/06/22 04:16 MCV 89.6 fl (80-94) 08/06/22 04:16 MCH 29.1 pg (28.0-34.0) 08/06/22 04:16 MCHC 32.5 g/dL (30.0-36.0) 08/06/22 04:16 RDW 12.8 % (12.1-15.1) 08/06/22 04:16 Plt Count 172 10^3/cmm (130-400) 08/06/22 04:16 MPV 10.6 fL (7.4-10.4) H 08/06/22 04:16 Neut % (Auto) 76.7 % 08/06/22 04:16 Lymph % (Auto) 12.9 % 08/06/22 04:16 [place] % (Auto) 7.6 % 08/06/22 04:16 Eos % (Auto) 1.8 % 08/06/22 04:16 Baso % (Auto) 0.5 % 08/06/22 04:16 Neut # (Auto) 5.08 10^3/uL (1.8-7.7) 08/06/22 04:16 Lymph # (Auto) 0.9 10^3/uL (0.8-4.8) 08/06/22 04:16 [place] # (Auto) 0.5 10^3/uL (0.2-0.9) 08/06/22 04:16 Eos # (Auto) 0.1 10^3/uL (0.0-0.8) 08/06/22 04:16 Baso # (Auto) 0.0 10^3/uL (0.0-0.1) 08/06/22 04:16 Nucleated RBC % (auto) 0 % 08/06/22 04:16 Nucleated RBCs # 0.0 /100WBC 08/06/22 04:16 Specimen Type Calver 08/05/22 04:34 Sample Site Radial, right 08/05/22 04:34 ABG pH 7.38 (7.35-7.45) 08/05/22 04:34 ABG pCO2 37.5 mmHg (35-45) 08/05/22 04:34 ABG pO2 155.0 mmHg (80.0-100.0) H 08/05/22 04:34 ABG HCO3 28.8 mmol/L (22-26) H 08/05/22 04:34 ABG Base Excess 2.8 mmol/L (-2.0-2.0) H 08/05/22 04:34 Tarun Test Pos 08/05/22 04:34 Hematocrit 38.3 % (42-52) L 08/05/22 04:34 Hgb O2 Saturation 95.6 % (95-100) 08/04/22 05:16 Carboxyhemoglobin 1.1 %THgb (0.4-20.1) 08/04/22 05:16 Methemoglobin 0.1 % (0.4-1.5) L 08/04/22 05:16 Total Hemoglobin 13.1 g/dL (14-18) L 08/04/22 05:16 O2 Delivery Device Nc 08/05/22 04:34 O2 Liters/Min 2.0 % 08/05/22 04:34 FiO2 32.0 % 08/04/22 05:16 Environmental Officer ID Anonymous 08/05/22 04:34 Sodium 142 mmol/L (136-145) 08/06/22 04:16 Potassium 4.0 mmol/L (3.5-5.1) 08/06/22 04:16 Chloride 106 mmol/L (98-107) 08/06/22 04:16 Carbon Dioxide 28 mmol/L (22-29) 08/06/22 04:16 Anion Gap 12.0 (5-19) 08/06/22 04:16 BUN 18 mg/dL (8-23) 08/06/22 04:16 Creatinine 0.9 mg/dL (0.7-1.2) 08/06/22 04:16 GFR Calculation 83.9 mL/min (90-130) L 08/06/22 04:16 Glucose 109 mg/dL (65-115) 08/06/22 04:16 Calculated Osmolality 296 mOsm/kg (285-295) H 08/06/22 04:16 Calcium 8.8 mg/dL (8.5-10.5) 08/06/22 04:16 Total Bilirubin 0.2 mg/dL (0.15-1.2) 08/06/22 04:16 AST 13 U/L (0-40) 08/06/22 04:16 ALT 12 U/L (0-41) 08/06/22 04:16 Alkaline Phosphatase 76 U/L (40-130) 08/06/22 04:16 NT-Pro-B Natriuret Pep 34 pg/mL (0-125) 08/04/22 04:25 Total Protein 5.9 g/dL (6.6-8.7) L 08/06/22 04:16 Albumin 3.9 g/dL (3.5-5.2) 08/06/22 04:16 Globulin 2.0 g/dL (1.3-4.6) 08/06/22 04:16 Procalcitonin 0.10 ng/mL (0-0.5) 08/04/22 04:25 Nasal Influ A H1 2009 PCR Not detected (NOT DETECT) 08/05/22 15:07 Adenovirus (PCR) Not detected (NOT DETECT) 08/05/22 15:07 C. pneumoniae DNA (PCR) Not detected (NOT DETECT) 08/05/22 15:07 Coronavirus 229E (PCR) Not detected (NOT DETECT) 08/05/22 15:07 Human Metapneumovir PCR Not detected (NOT DETECT) 08/05/22 15:07 Influenza A (H1) PCR Not detected (NOT DETECT) 08/05/22 15:07 Influenza A (H3) PCR Not detected (NOT DETECT) 08/05/22 15:07 Influenza Type A (PCR) Not detected (NOT DETECT) 08/05/22 15:07 Influenza Type B (PCR) Not detected (NOT DETECT) 08/05/22 15:07 M. pneumoniae (PCR) Not detected (NOT DETECT) 08/05/22 15:07 Parainfluenza 1 (PCR) Not detected (NOT DETECT) 08/05/22 15:07 Parainfluenza 2 (PCR) Not detected (NOT DETECT) 08/05/22 15:07 Parainfluenza 3 (PCR) Not detected (NOT DETECT) 08/05/22 15:07 Parainfluenza 4 (PCR) Not detected (NOT DETECT) 08/05/22 15:07 RSV Type A (PCR) Not detected (NOT DETECT) 08/05/22 15:07 RSV Type B (PCR) Not detected (NOT DETECT) 08/05/22 15:07 Entero/Rhino (PCR) Not detected (NOT DETECT) 08/05/22 15:07 SARS-CoV-2 (PCR) Not detected (NOT DETECT) 08/05/22 15:07 Vitals Last Vital Signs Temp 98.3 F 08/06/22 11:48 Pulse 73 08/06/22 13:21 Resp 18 08/06/22 13:16 BP 116/48 08/06/22 11:48 Pulse Ox 98 08/06/22 13:16 O2 Del Method 08/06/22 13:16 O2 Flow Rate 1 08/06/22 08:50 Discharge Plan Discharge Patient Disposition: Home Condition: Stable Prescriptions: New pantoprazole 40 mg Tablet,Delayed Release (Dr/Ec) 40 mg PO DAILY 14 Days Qty: 14 0RF doxycycline monohydrate 100 mg Tablet 100 mg PO BID 5 Days Qty: 10 0RF Continued buspirone 15 mg tablet 15 mg PO TID ipratropium-albuterol 0.5 mg-3 mg(2.5 mg base)/3 mL solution for nebulization 3 ml inhalation Q6H PRN (Reason: Shortness Of Breath) levalbuterol tartrate 45 mcg/actuation HFA aerosol inhaler 2 inh inhalation Q6H PRN (Reason: shortness of breath or wheezing) guaifenesin 400 mg tablet 400 mg PO QID PRN (Reason: congestion) hydroxyzine HCl 50 mg tablet 50 mg PO BID PRN (Reason: Anxiety) meloxicam 15 mg tablet 15 mg PO DAILY PRN (Reason: Pain) rivaroxaban 20 mg tablet 20 mg PO DAILY Rx Instructions: must administer with evening meal sertraline 100 mg tablet 200 mg PO DAILY atorvastatin 40 mg tablet 20 mg PO DAILY Breztri Aerosphere 160-9-4.8 mcg/actuation HFA aerosol inhaler 2 inh inhalation BID Qty: 10.7 3RF hydrocodone-acetaminophen 5-325 mg tablet 1 tab PO Q6H PRN (Reason: pain) Qty: 25 0RF diazepam 10 mg tablet 10 mg PO BID PRN (Reason: Anxiety) Changed prednisone 20 mg tablet See Taper PO TID Qty: 15 0RF Taper: predniSONE 60-10 60 mg Daily for 2 Days and 0 Hour 50 mg Daily for 2 Days and 0 Hour 40 mg Daily for 2 Days and 0 Hour 30 mg Daily for 2 Days and 0 Hour 20 mg Daily for 2 Days and 0 Hour 10 mg Daily for 2 Days and 0 Hour Rx Instructions: 1 p.o. 3 times daily x3 days, 1 p.o. twice daily x2 days, 1 p.o. daily x2 days Discharge Orders: Discharge Order (Routine); Ordered 08/06/22 Ordered By: Sobeida Love Referrals: [facility], [Staff Physician] - 2 weeks (anxiety disorder ) Dilshad Anderson DO [Primary Care Provider] - Discharge Diet: Usual diet Discharge Activity: Resume usual activity Patient Instructions: Doxycycline (By mouth), Pantoprazole (By mouth), COPD (Chronic Obstructive Pulmonary Disease) (GEN), Opioid Safety, Pain Management Discharge Attestations Time Spent in Discharge Care*: greater than 30 min Quality Metrics Clinical Quality Measures [ No reported AMI, CVA or VTE this stay] Coding Level of Care Code Acute Chg FW DC note Diagnoses Acute exacerbation of chronic obstructive airways disease J44.1 Fracture of rib S22.39XA BETH on CPAP G47.33; Z99.89 Chronic anticoagulation Z79.01 Anxiety F41.9 Hyperlipidemia E78.5
--- NOTE | 2022-08-06 16:11 | PC.NURSE ---
patient verbalized understanding of discharge instructions, home medications, and follow up appointments.
--- NOTE | 2022-08-06 16:26 | PC.NURSE ---
patient requested to wait for ride downstairs. pt wheeled to main entrance.
== END 2022-08-06 14:25 | disposition home or self-care (01) | DRG 191 ==
LOC: ER 07:55 → MEDSURG 21:25
PROVIDERS: Emergency Medicine; Hospitalist; Admitting Provider Internal Medicine; Emergency Provider Family Medicine; PCP Emergency Medicine Emergency Medical Services; Visit Provider Student in an Organized Health Care Education/Training Program
DX: J44.1 Chronic obstructive pulmonary disease with (acute) exacerbation (principal); S22.31XA Fracture of one rib, right side, initial encounter for closed fracture; W01.0XXA Fall on same level from slipping, tripping and stumbling without subsequent striking against object, initial encounter; F41.9 Anxiety disorder, unspecified; F43.10 Post-traumatic stress disorder, unspecified; E78.5 Hyperlipidemia, unspecified; G47.30 Sleep apnea, unspecified; Z86.711 Personal history of pulmonary embolism; Z79.891 Long term (current) use of opiate analgesic; Z88.0 Allergy status to penicillin; Z85.46 Personal history of malignant neoplasm of prostate; Z87.891 Personal history of nicotine dependence; Z99.89 Dependence on other enabling machines and devices
CPT/HCPCS: 36415; 36600; 71045; 71275; 80053; 82803; 82805; 83880; 84145; 85025; 87486; 87581; 87633; 93005; 94640; 94660; 94760; J2920; J7512; J7613; J7614; J7626; J7644; Q9967

== ENCOUNTER 2022-08-15 23:33 | Observation (INO) | payer OTHER, SELFPAY ==
[2022-08-15 23:34] VITALS: BMI 34.5
[2022-08-15 23:36] VITALS: BP 141/99; PULSE 103; RESP 29; TEMP 36.7; O2SAT 100
[2022-08-15 23:45] VITALS: BP 112/95; PULSE 107; RESP 26; O2SAT 96
--- NOTE | 2022-08-15 23:49 | XRR_ITS ---
PROCEDURE INFORMATION: Exam: XR Chest Exam date and time: 08/15/2022 11:53 PM Age: 66 years old Clinical indication: Shortness of breath; Additional info: SOB TECHNIQUE: Imaging protocol: Radiologic exam of the chest. Views: 1 view. COMPARISON: CR (CHEST, ) 08/04/2022 5:16 AM FINDINGS: Lungs: There is a background of emphysema and mild bronchiectasis. There are increased interstitial opacities present bilaterally that could represent mild pulmonary fibrosis although a superimposed interstitial pneumonitis cannot be entirely excluded. Pleural spaces: Unremarkable. No pleural effusion. No pneumothorax. Heart/Mediastinum: Unremarkable. No cardiomegaly. Bones/joints: Unremarkable. XR/XR chest 1V portable [id number] IMPRESSION: 1. Background of emphysema and mild bronchiectasis. Subtle increased interstitial opacities are present bilaterally, findings that could represent mild interstitial pneumonitis
--- NOTE | 2022-08-15 23:49 | ECG_ITS ---
[facility] Test Date: 2022-08-16 Pat Name: Jaswant Macdonald Department: Room: 267 Gender: Male Bioinformatician: : 1955 Requested By: Niranjan Og Order Number: [id number] Stephanie MD: Zoraida Chong M.D. Measurements Intervals [place] Rate: 102 P: 75 [place]: 156 QRS: 38 QRSD: 96 T: 52 QT: 315 QTc: 412 Interpretive Statements SINUS TACHYCARDIA ABNORMAL RHYTHM ECG Compared to ECG 08/04/2022 14:47:37 Sinus rhythm no longer present Myocardial infarct finding no longer present Electronically Signed On 08-16-2022 20:02:02 RN INFUSION by Zoraida Chong M.D. [id number]
[2022-08-16] VITALS (20 sets, daily range): BP systolic 108–159; BP diastolic 48–87; PULSE 69–112; RESP 15–26; TEMP 36.3–37.1; O2SAT 91–100
[2022-08-16] MEDS: LORazepam 2 mg/mL INJ 1 mL 1 MG IVP (00:04)
[2022-08-16] MEDS: magnesium sulfate premix 2 GM/50 ML PIGGYBACK IV (00:09)
[2022-08-16 00:12] LABS: Basophils # 0.1 10^3/uL (0.0-0.1); Basophils % 0.6 %; Eosinophils # 1.2 10^3/uL (0.0-0.8); Eosinophils % 10.7 %; Hematocrit 41.3 % (42.0-52.0); Lymphocytes # 0.8 10^3/uL (0.8-4.8); Lymphocytes % 7.8 %; Mean Corpuscular HGB Conc 31.5 g/dL (30.0-36.0); Mean Corpuscular Hemoglobin 28.8 pg (28.0-34.0); Mean Corpuscular Volume 91.6 fl (80-94); Mean Platelet Volume 10.7 fL (7.4-10.4); Monocytes # 0.8 10^3/uL (0.2-0.9); Monocytes % 7.5 %; Neutrophils # 7.83 10^3/uL (1.8-7.7); Neutrophils % 72.6 %; Nucleated Red Blood Cells % 0 %; Platelet Count 222 10^3/cmm (130-400); Red Blood Count 4.51 10^6/uL (4.1-5.3); Red Cell Distribution Width 12.7 % (12.1-15.1); White Blood Count 10.8 10^3/uL (4.0-10.0)
[2022-08-16 00:29] LABS: Troponin(5th) Baseline 15 ng/L (0-15)
[2022-08-16 00:34] LABS: Alanine Aminotransferase 28 U/L (0-41); Albumin Level 4.6 g/dL (3.5-5.2); Alkaline Phosphatase 99 U/L (40-130); Blood Urea Nitrogen 18 mg/dL (8-23); Carbon Dioxide 27 mmol/L (22-29); Chloride 104 mmol/L (98-107); Globulin 1.8 g/dL (1.3-4.6); Glomerular Filtration Rate 96.1 mL/min (90-130); Glucose 119 mg/dL (65-115); NT Pro B Type Natriuretic Pept 87 pg/mL (0-125); Osmolality Calculated 297 mOsm/kg (285-295); Sodium 142 mmol/L (136-145); Total Bilirubin 0.2 mg/dL (0.15-1.2); Total Protein 6.4 g/dL (6.6-8.7)
[2022-08-16 00:36] LABS: Anion Gap 16.2 (5-19); Aspartate Amino Transferase 24 U/L (0-40); Potassium 5.2 mmol/L (3.5-5.1)
[2022-08-16 00:47] LABS: ABG PCO2 58.8 mmHg (35-45); ABG PH Result 7.31 (7.35-7.45); Arterial Blood Gas Hematocrit 38.9 % (42-52); Base Excess ABG 1.9 mmol/L (-2.0-2.0); Blood Gas Allen Test Pos; Blood Gas Sample Site Radial, right; Blood Gas Sample Type Arterial; HCO3 ABG 29.5 mmol/L (22-26); HGB O2 Sat 90.8 % (95-100); PO2 ABG 65.7 mmHg (80.0-100.0); Total Hemoglobin 12.7 g/dL (14-18)
[2022-08-16 00:48] LABS: Oxygen Device NC
[2022-08-16 00:50] LABS: SARS Covid-2 Antigen negative (Negative)
[2022-08-16 00:51] LABS: Influenza A by IFA negative (Negative); Influenza B by IFA negative (Negative)
--- NOTE | 2022-08-16 00:54 | PM.HP ---
Providers/Chief Complaint Admitting Physician: Thea Curiel MD Primary Care Provider: Dilshad Anderson DO Chief Complaint: SOB History of Present Illness Jaswant Macdonald is a 66 year old male past medical history of COPD, hearing loss, BETH on CPAP at home, PE and chronically on Xarelto, hyperlipidemia, anxiety presented to the hospital today for complaint of shortness of breath and wheezing. He says he has been coughing and has had no fever at home. He does not have any sputum production no increasing leg swelling but has been very short of breath. Shortness of breath does worsen on exertion and when he lies flat. He does also complained of chest pain to ER doc however did not really give much of a details regarding his chest pain. Somewhat of a poor historian. Recently was discharged on 06 August and was admitted for COPD exacerbation at that time. The time when patient seen he does not have any chest pain at this time and is currently on BiPAP. He is starting to feel better at this time. ED course: 148/88, respiratory 24, pulse 105, temperature 98.1. Patient did receive Decadron IV 6 mg x 1 in route via EMS. Once he arrived he was given Solu-Medrol 125x1 here. He was given a DuoNeb with improvement in his symptoms. WBC count 11,000. Potassium mildly elevated at 5.2. No ischemic EKG changes. Chest x-ray showed possible mild interstitial pneumonitis. BNP normal, first troponin 15. 2-hour troponin pending at this time. ABG obtained showed pH 7.3/58. He was started on BiPAP by the ER. Medications/Allergies Home Medications Medication Instructions Recorded Confirmed Last Taken Type atorvastatin 40 mg tablet 20 mg PO DAILY 06/03/22 08/04/22 08/03/22 History buspirone 15 mg tablet 15 mg PO TID 06/03/22 08/04/22 08/03/22 History guaifenesin 400 mg tablet 400 mg PO QID PRN congestion 06/03/22 08/04/22 Unknown History hydroxyzine HCl 50 mg tablet 50 mg PO BID PRN Anxiety 06/03/22 08/04/22 Unknown History ipratropium 0.5 mg-albuterol 3 mg 3 ml inhalation Q6H PRN Shortness 06/03/22 08/04/22 Unknown History (2.5 mg base)/3 mL nebulization Of Breath soln levalbuterol tartrate 45 2 inh inhalation Q6H PRN shortness 06/03/22 08/04/22 08/04/22 History mcg/actuation aerosol inhaler of breath or wheezing meloxicam 15 mg tablet 15 mg PO DAILY PRN Pain 06/03/22 08/04/22 Unknown History rivaroxaban 20 mg tablet 20 mg PO DAILY 06/03/22 08/04/22 08/04/22 History sertraline 100 mg tablet 200 mg PO DAILY 06/03/22 08/04/22 08/04/22 History budesonide 160 mcg-glycopyr 9 2 inh inhalation BID #10.7 grams 06/15/22 08/04/22 08/03/22 Rx mcg-formot 4.8 mcg/actuation HFA inhaler (Breztri Aerosphere) hydrocodone 5 mg-acetaminophen 325 1 tab PO Q6H PRN pain #25 tabs 07/31/22 08/04/22 Unknown Rx mg tablet diazepam 10 mg tablet 10 mg PO BID PRN Anxiety 08/04/22 08/04/22 Unknown History pantoprazole 40 mg tablet,delayed 40 mg PO DAILY 14 days #14 tabs 08/06/22 Unknown Rx release prednisone 20 mg tablet See Taper PO TID #15 tabs 08/06/22 08/04/22 08/04/22 Rx Allergies Allergy/AdvReac Type Severity Reaction Status Date / Time Penicillins Allergy ALGY-Anaphy Verified 08/04/22 11:57 laxis PFSH Acute PFSH: Medical History Anxiety related to PTSD, can be severe, takes benzodiazepines as needed and buspar scheduled COPD (chronic obstructive pulmonary disease) Erectile dysfunction Hearing loss History of cardiovascular stress test 04/2022 false positive History of PFTs 06/2022 Severe airflow obstruction, no post bronchodilator study, lung volumes not measured, moderate gas transfer defect. Consistent with obstructive ventilatory disease. Hyperlipidemia Malignant neoplasm of prostate s/p TURP BETH on CPAP Osteoarthritis PTSD (post-traumatic stress disorder) Pulmonary embolism Unprovoked, 2019, on chronic anticoagulation with rivaroxaban, CTA chest 07/2022 with no focal PE identified Surgical History History of appendectomy History of cardiac catheterization 05/2022 [place], no obstructive CAD History of cholecystectomy 2006 History of colonoscopy 2013 no abnormalities History of inguinal hernia repair right History of repair of congenital cleft palate History of thoracotomy trauma from left rib fracture while on anticoagulation History of tonsillectomy History of transurethral resection of prostate 2014, for prostate cancer History of vasectomy with subsequent failed reversal Family History Father Stroke Dementia CAD (coronary artery disease) Other Anxiety Social History Smoking and tobacco status: former smoker (1 cig/day) Quit status (tobacco): has quit using tobacco Former quit date comment: 03/2022 Alcohol intake: current Alcohol intake frequency: few times a week Alcohol type: hard liquor Household members: spouse Marital status: service: Yes status details: 15 years [employer], 5 years [employer], 100% service connected Vitals/I&O/Wt Last Vital Signs Temp 98.1 F 08/15/22 23:36 Pulse 82 08/16/22 02:31 Resp 15 08/16/22 02:31 BP 114/73 08/16/22 02:00 Pulse Ox 98 08/16/22 02:31 O2 Del Method 08/16/22 01:11 O2 Flow Rate 3 08/15/22 23:36 FiO2 35 08/16/22 01:11 08/15/22 08/15/22 08/16/22 14:59 22:59 06:59 Intake Total 200 / 200 Balance 200 / 200 Weight last 48 hrs Weight 115.666 kg Physical Exam Narrative: General: Alert oriented x3, patient seen laying in bed on BiPAP. Mild conversational dyspnea otherwise doing okay. HEENT: Normocephalic, atraumatic, EOMI, Cardio: Regular rate rhythm, normal S1-S2, no chest pain on palpation. Respiratory: Diffuse rhonchi bilaterally, diminished at bases. GI: Abdomen soft, nontender, nondistended, bowel sounds + Extremities: No lower extremity edema. Data 08/15/22 23:48 08/15/22 00:00 Micro: Microbiology 08/16/22 00:49 Blood Culture - Preliminary Blood SPECIMEN COLLECTED 08/16/22 00:45 Blood Culture - Preliminary Blood SPECIMEN COLLECTED A&P Assessment and plan (1) Exertional dyspnea: (2) BETH on CPAP: (3) Pulmonary embolism: (4) Acute exacerbation of chronic obstructive airways disease: (5) Hyperlipidemia: (6) History of smoking: (7) Chronic anticoagulation: (8) Anxiety: Plan #COPD exacerbation #Obstructive sleep apnea on CPAP at home #History of PE chronic respiratory #Hyperlipidemia #Anxiety - Continue Solu-Medrol 60 IV twice daily ? Sputum gram stain culture ? Azithromycin x5 days ? DuoNeb every 4 hours scheduled ? Continue on BiPAP overnight ? Continue sertraline, Xarelto, pantoprazole, buspirone, atorvastatin ? Patient was recently discharged on August 06, 2022 and was in the hospital and treated for COPD exacerbation. He will probably need a prolonged prednisone taper at discharge this time. -Recheck procalcitonin. Low suspicion of pneumonia. Pt was covered with levaquin 750 x1 in Er - Trend and await rest of troponins Full code DVT prophylaxis: On Xarelto. Attestations Medical Necessity Statement*: Observation admission for COPD exacerbation. Coding Level of Care Code Acute Clinical Field Specialist for g Fwd Diagnoses Exertional dyspnea R06.09 BETH on CPAP G47.33; Z99.89 Pulmonary embolism I26.99 Acute exacerbation of chronic obstructive airways disease J44.1 Hyperlipidemia E78.5 History of smoking Z87.891 Chronic anticoagulation Z79.01 Anxiety F41.9
--- NOTE | 2022-08-16 00:58 | W.ED.SOB ---
HPI - SOB/Dyspnea General: Chief Complaint: Shortness of Breath/Dyspnea Stated Complaint: SOB Time Seen by Provider: 08/15/22 23:34 Source: patient History of Present Illness: HPI Narrative: 66-year-old male with a history of COPD. He presents with increased shortness of breath and wheezing. He notes a cough, with little to no sputum production. No increase in leg swelling. He denies fever. He denies chest pain. MD elicited complaint: shortness of breath and cough Pertinent past history: COPD Onset (ago): hour(s) Timing: constant and progressively worsening Severity: moderate Exacerbating factors: lying flat and exertion Relieving factors: nothing Known history of: COPD Associated symptoms: Reports chest congestion, cough, diaphoresis, nausea and orthopnea; Deny abdominal pain, chest pain, fever(s) or vomiting Treatment prior to arrival: oxygen and bronchodilator Review of Systems Const: Reports: diaphoresis; Denies: fever(s) Card: Reports: orthopnea; Denies: chest pain Resp: Reports: chest congestion GI: Reports: nausea; Denies: abdominal pain or vomiting [facility] ED PFSH: Medical History Anxiety related to PTSD, can be severe, takes benzodiazepines as needed and buspar scheduled COPD (chronic obstructive pulmonary disease) Erectile dysfunction Hearing loss History of cardiovascular stress test 04/2022 false positive History of PFTs 06/2022 Severe airflow obstruction, no post bronchodilator study, lung volumes not measured, moderate gas transfer defect. Consistent with obstructive ventilatory disease. Hyperlipidemia Malignant neoplasm of prostate s/p TURP BETH on CPAP Osteoarthritis PTSD (post-traumatic stress disorder) Pulmonary embolism Unprovoked, 2018, on chronic anticoagulation with rivaroxaban, CTA chest 07/2022 with no focal PE identified Surgical History History of appendectomy History of cardiac catheterization 05/2022 [place], no obstructive CAD History of cholecystectomy 2006 History of colonoscopy 2013 no abnormalities History of inguinal hernia repair right History of repair of congenital cleft palate History of thoracotomy trauma from left rib fracture while on anticoagulation History of tonsillectomy History of transurethral resection of prostate 2014, for prostate cancer History of vasectomy with subsequent failed reversal Family History Father Stroke Dementia CAD (coronary artery disease) Other Anxiety Social History Smoking and tobacco status: former smoker (1 cig/day) Quit status (tobacco): has quit using tobacco Former quit date comment: 03/2022 Alcohol intake: current Alcohol intake frequency: few times a week Alcohol type: hard liquor Household members: spouse Marital status: service: Yes status details: 15 years [employer], 5 years [employer], 100% service connected Physical Exam Const: GENERAL APPEARANCE: cooperative, in distress and ill appearing; not frail appearing HENMT: COMMON NORMALS: normocephalic and atraumatic HEAD & SCALP: normocephalic and atraumatic Eye: COMMON NORMALS: Equal, round and reactive pupils present and EOMs intact bilaterally PUPIL: Yes Equal, round and reactive pupils present Neck/C-Spine: GENERAL: Yes trachea midline Chest: CHEST: Yes Symmetrical chest wall rise Resp: EFFORT & INSPECTION: No able to speak in complete sentences, Yes tachypneic and Yes respiratory distress AUSCULTATION: rhonchi, wheezes and diminished lung sounds Cardio: COMMON NORMALS: regular rhythm RATE: tachycardic RHYTHM: regular rhythm GI: COMMON NORMALS: Normal to inspection, nondistended, normoactive bowel sounds present, Soft to palpation and non-tender PALPATION: Yes Soft to palpation Extremity: COMMON NORMALS: no pedal edema Neuro: CINTHIA COMA SCALE: document GCS findings Cinthia coma scale eye opening: Spontaneous Cinthia coma scale verbal response: Orientated [employer] coma scale motor response: Obey commands Cinthia coma scale total score: 15 Psych: COMMON NORMALS: mental status grossly normal and cooperative Course Vital Signs: Vital signs: Vital Signs Temperature 97.6 F 08/17/22 11:34 Pulse Rate 88 08/17/22 11:57 Respiratory Rate 18 08/17/22 11:57 Blood Pressure 120/71 08/17/22 11:34 Pulse Oximetry 98 08/17/22 12:01 Oxygen Delivery Me thod 08/17/22 11:57 Oxygen Flow Rate 95 08/17/22 08:00 Fraction of Inspir ed Oxygen 30 08/17/22 03:57 MDM - SOB/Dyspnea Medical Decision Making Patient had received Decadron IV in route only 6 mg. He was given Solu-Medrol 125 here. He is given another breathing treatment here with some improvement. His white blood cell count is 11. Potassium mildly elevated at 5.2. No EKG changes regarding that. No significant ST wave changes on EKG, which shows sinus tachycardia with a normal axis and normal intervals and a rate of 100 otherwise. His chest x-ray shows subtle findings that might represent mild interstitial pneumonitis. His BNP is normal. His first troponin is normal at 15. The patient does not have chest pain. Blood gas shows a pH is 7.3 with a PCO2 of 58. He is placed on BiPAP for this. He will be admitted. Lab Data 08/15/22 23:48 08/15/22 00:00 Labs/Radiology: Radiology Impressions Chest X-Ray 08/15/22 23:49 IMPRESSION: 1. Background of emphysema and mild bronchiectasis. Subtle increased interstitial opacities are present bilaterally, findings that could represent mild interstitial pneumonitis Laboratory Results WBC 10.8 10^3/uL (4.0-10.0) H 08/15/22 23:48 RBC 4.51 10^6/uL (4.1-5.3) 08/15/22 23:48 Hgb 13.0 g/dL (11.7-16.6) 08/15/22 23:48 Hct 41.3 % (42.0-52.0) L 08/15/22 23:48 MCV 91.6 fl (80-94) 08/15/22 23:48 MCH 28.8 pg (28.0-34.0) 08/15/22 23:48 MCHC 31.5 g/dL (30.0-36.0) 08/15/22 23:48 RDW 12.7 % (12.1-15.1) 08/15/22 23:48 Plt Count 222 10^3/cmm (130-400) 08/15/22 23:48 MPV 10.7 fL (7.4-10.4) H 08/15/22 23:48 Neut % (Auto) 72.6 % 08/15/22 23:48 Lymph % (Auto) 7.8 % 08/15/22 23:48 [place] % (Auto) 7.5 % 08/15/22 23:48 Eos % (Auto) 10.7 % 08/15/22 23:48 Baso % (Auto) 0.6 % 08/15/22 23:48 Neut # (Auto) 7.83 10^3/uL (1.8-7.7) H 08/15/22 23:48 Lymph # (Auto) 0.8 10^3/uL (0.8-4.8) 08/15/22 23:48 [place] # (Auto) 0.8 10^3/uL (0.2-0.9) 08/15/22 23:48 Eos # (Auto) 1.2 10^3/uL (0.0-0.8) H 08/15/22 23:48 Baso # (Auto) 0.1 10^3/uL (0.0-0.1) 08/15/22 23:48 Nucleated RBC % (auto) 0 % 08/15/22 23:48 Nucleated RBCs # 0.0 /100WBC 08/15/22 23:48 Specimen Type Arterial 08/15/22 00:45 Sample Site Radial, right 08/15/22 00:45 ABG pH 7.31 (7.35-7.45) L 08/15/22 00:45 ABG pCO2 58.8 mmHg (35-45) H 08/15/22 00:45 ABG pO2 65.7 mmHg (80.0-100.0) L 08/15/22 00:45 ABG HCO3 29.5 mmol/L (22-26) H 08/15/22 00:45 ABG Base Excess 1.9 mmol/L (-2.0-2.0) 08/15/22 00:45 Tarun Test Pos 08/15/22 00:45 Hematocrit 38.9 % (42-52) L 08/15/22 00:45 Hgb O2 Saturation 90.8 % (95-100) L 08/15/22 00:45 Carboxyhemoglobin 1.0 %THgb (0.4-20.1) 08/15/22 00:45 Methemoglobin 1.0 % (0.4-1.5) 08/15/22 00:45 Total Hemoglobin 12.7 g/dL (14-18) L 08/15/22 00:45 O2 Delivery Device Nc 08/15/22 00:45 O2 Liters/Min 3.0 % 08/15/22 00:45 FiO2 32.0 % 08/15/22 00:45 Cyber Threat Analyst ID Droch 08/15/22 00:45 Sodium 142 mmol/L (136-145) 08/15/22 00:00 Potassium 5.2 mmol/L (3.5-5.1) H 08/15/22 00:00 Chloride 104 mmol/L (98-107) 08/15/22 00:00 Carbon Dioxide 27 mmol/L (22-29) 08/15/22 00:00 Anion Gap 16.2 (5-19) 08/15/22 00:00 BUN 18 mg/dL (8-23) 08/15/22 00:00 Creatinine 0.8 mg/dL (0.7-1.2) 08/15/22 00:00 GFR Calculation 96.1 mL/min (90-130) 08/15/22 00:00 Glucose 119 mg/dL (65-115) H 08/15/22 00:00 Calculated Osmolality 297 mOsm/kg (285-295) H 08/15/22 00:00 Lactic Acid 0.8 mmol/L (0.5-2.2) 08/16/22 00:49 Calcium 9.0 mg/dL (8.5-10.5) 08/15/22 00:00 Total Bilirubin 0.2 mg/dL (0.15-1.2) 08/15/22 00:00 AST 24 U/L (0-40) 08/15/22 00:00 ALT 28 U/L (0-41) 08/15/22 00:00 Alkaline Phosphatase 99 U/L (40-130) 08/15/22 00:00 Troponin T Baseline 15 ng/L (0-15) 08/15/22 00:00 Troponin T 120 Minute 34.15 ng/L (0-15) H 08/16/22 02:15 Delta Troponin T 19.15 ABS# (0-10) H* 08/16/22 02:15 NT-Pro-B Natriuret Pep 87 pg/mL (0-125) 08/15/22 00:00 Total Protein 6.4 g/dL (6.6-8.7) L 08/15/22 00:00 Albumin 4.6 g/dL (3.5-5.2) 08/15/22 00:00 Globulin 1.8 g/dL (1.3-4.6) 08/15/22 00:00 Procalcitonin 0.12 ng/mL (0-0.5) 08/16/22 02:15 Influenza Type A Ag negative (Negative) 08/16/22 00:07 Influenza Type B Ag negative (Negative) 08/16/22 00:07 SARS-CoV-2 Ag (Rapid) negative (Negative) 08/16/22 00:07 Discharge Plan Discharge Patient Disposition: Admitted As Inpatient Admit Provider: Thea Curiel Clinical Impression: Acute exacerbation of chronic obstructive airways disease Condition: Stable Coding Level of Care Code ED Supervisor [employer] for Chg Fwd Exam Comprehensive
[2022-08-16 01:09] LABS: Lactic Sepsis W/Reflex 0.8 mmol/L (0.5-2.2)
[2022-08-16] MEDS: levofloxacin-dextrose 5 % 750 MG/150 ML PREMIX 100 MG IV (01:13)
[2022-08-16 02:39] LABS: Troponin 5 2HR 34.15 ng/L (0-15)
[2022-08-16 02:42] LABS: Troponin 5 2HR Delta 19.15 ABS# (0-10)
--- NOTE | 2022-08-16 03:35 | PC.NURSE ---
Report called to Lisandra Sotomayor
--- NOTE | 2022-08-16 04:36 | PC.NURSE ---
Patient has home medication bottle with him, which will be locked in [employer]. Able to verify all home medications except for inhalers.
[2022-08-16] MEDS: sodium chloride 0.9% 1,000 ML 75 ML IV ×2 (05:10→18:25)
[2022-08-16 05:43] LABS: Procalcitonin 0.12 ng/mL (0-0.5)
--- NOTE | 2022-08-16 05:49 | ECG_ITS ---
[facility] Test Date: 2022-08-16 Pat Name: Jaswant Macdonald Department: Room: 267 Gender: Male Front Desk Monitor: : 1955 Requested By: Niranjan Og Order Number: [id number] Stephanie MD: Zoraida Chong M.D. Measurements Intervals [place] Rate: 78 P: 15 LA: 151 QRS: 29 QRSD: 109 T: 41 QT: 376 QTc: 429 Interpretive Statements SINUS RHYTHM PROBABLE INFERIOR MYOCARDIAL INFARCTION , PROBABLY OLD [35 ms Q WAVE IN II/aVF] Compared to ECG 08/16/2022 00:38:18 Myocardial infarct finding now present Sinus tachycardia no longer present Electronically Signed On 08-16-2022 20:22:39 FERRY HAND by Zoraida Chong M.D. [email or web address] Techpearl [facility] hospitalNazar[email or web address]/store/[id number]
[2022-08-16 07:07] LABS: Troponin 5 6HR 32.19 ng/L (0-15)
[2022-08-16 07:14] LABS: Troponin 5 6HR Delta 17.19 ng/L (0-12)
[2022-08-16] MEDS: ipratropium-albuterol 3 mL Neb INHALATION ×4 (07:46→22:14)
[2022-08-16] MEDS: atorvastatin 40 mg Tablet 20 MG PO (08:04)
[2022-08-16] MEDS: pantoprazole DR 40 mg Tablet PO (08:04)
[2022-08-16] MEDS: sertraline 100 mg Tablet 200 MG PO (08:04)
[2022-08-16] MEDS: BuSPIRONE 10 mg Tablet 15 MG PO ×3 (08:04→20:23)
--- NOTE | 2022-08-16 10:00 | PC.PHAR ---
pt states he takes care of his own medications-pt states he was just discharged 08/06/22 and his medications should be accurate from when he was here-Zohreh guadarrama did pts medications on 08/04/22-went over each medication with the pt again and pt states he is still taking the medications entered-[facility]
[2022-08-16] MEDS: azithromycin 500 MG in sodium chloride 0.9% 250 ML 250 MG IV (10:16)
--- NOTE | 2022-08-16 11:16 | PM.PN ---
Subjective Subjective: Patient seems to be getting better Awake and alert Does not use oxygen at home Patient thinks he is getting better since last night Vitals/I&O/Wt Last Vital Signs Temp 97.4 F L 08/16/22 08:00 Pulse 82 08/16/22 08:00 Resp 22 H 08/16/22 08:00 BP 130/59 08/16/22 08:00 Pulse Ox 97 08/16/22 08:00 O2 Del Method 08/16/22 08:00 O2 Flow Rate 3 08/15/22 23:36 FiO2 30 08/16/22 07:57 08/15/22 08/16/22 08/16/22 22:59 06:59 14:59 Intake Total 1000 / 1000 360 / 360 Balance 1000 / 1000 360 / 360 Weight last 48 hrs Weight 115.666 kg Physical Exam Narrative: Menstrual flow no active wheezing Currently on 3 L nasal cannula Hemodynamically stable Awake and alert Pleasant cooperative S1, S2 Abdomen soft Nonfocal neuro exam Data 08/15/22 23:48 08/15/22 00:00 Micro: Microbiology 08/16/22 00:49 Blood Culture - Preliminary Blood SPECIMEN COLLECTED 08/16/22 00:45 Blood Culture - Preliminary Blood SPECIMEN COLLECTED A&P Assessment and plan (1) Exertional dyspnea: (2) BETH on CPAP: (3) Pulmonary embolism: (4) Fracture of rib: (5) Acute exacerbation of chronic obstructive airways disease: Plan Acute COPD exacerbation Patient will need oxygen most likely at the time of discharge Will do home O2 evaluation And wheezing has improved Diminished airflow Full code Active chest pain Flu negative Mild interstitial pneumonitis will prove azithromycin for anti-inflammatory effect Plan to discharge tomorrow Attestations Medical Necessity Statement*: Continue medical management Time Spent in Patient Care: 30 Coding Level of Care Code Acute Telehealth Director for Chg Fwd Diagnoses Exertional dyspnea R06.09 BETH on CPAP G47.33; Z99.89 Pulmonary embolism I26.99 Fracture of rib S22.39XA Acute exacerbation of chronic obstructive airways disease J44.1
[2022-08-17] VITALS (9 sets, daily range): BP systolic 115–138; BP diastolic 61–77; PULSE 56–88; RESP 15–18; TEMP 36.4–36.7; O2SAT 95–100
[2022-08-17 05:25] LABS: Basophils % 0.1 %; Eosinophils % 0.1 %; Hematocrit 35.5 % (42.0-52.0); Hemoglobin 11.1 g/dL (11.7-16.6); Lymphocytes # 0.3 10^3/uL (0.8-4.8); Mean Corpuscular HGB Conc 31.3 g/dL (30.0-36.0); Mean Corpuscular Hemoglobin 28.5 pg (28.0-34.0); Mean Corpuscular Volume 91.3 fl (80-94); Mean Platelet Volume 10.9 fL (7.4-10.4); Monocytes # 0.2 10^3/uL (0.2-0.9); Monocytes % 2.4 %; Neutrophils # 9.41 10^3/uL (1.8-7.7); Neutrophils % 93.8 %; Nucleated Red Blood Cells % 0 %; Platelet Count 188 10^3/cmm (130-400); Red Blood Count 3.89 10^6/uL (4.1-5.3); Red Cell Distribution Width 12.8 % (12.1-15.1)
[2022-08-17 05:59] LABS: Alanine Aminotransferase 25 U/L (0-41); Albumin Level 3.8 g/dL (3.5-5.2); Alkaline Phosphatase 87 U/L (40-130); Anion Gap 12.5 (5-19); Aspartate Amino Transferase 16 U/L (0-40); Blood Urea Nitrogen 18 mg/dL (8-23); Calcium 9.3 mg/dL (8.5-10.5); Carbon Dioxide 28 mmol/L (22-29); Chloride 108 mmol/L (98-107); Creatinine Clr Calc Pharmacy 103.1404; Glomerular Filtration Rate 83.9 mL/min (90-130); Glucose 136 mg/dL (65-115); Osmolality Calculated 302 mOsm/kg (285-295); Potassium 4.5 mmol/L (3.5-5.1); Sodium 144 mmol/L (136-145); Total Bilirubin 0.2 mg/dL (0.15-1.2); Total Protein 5.8 g/dL (6.6-8.7)
[2022-08-17] MEDS: ipratropium-albuterol 3 mL Neb INHALATION ×2 (07:49→11:57)
--- NOTE | 2022-08-17 07:55 | PM.DCS ---
Discharge Providers Date of Admission: 08/16/22 03:10 Date of Discharge: August 17, 2022 Attending Provider at Admission: Thea Curiel MD Attending Provider at Discharge: Steve Guillermo MD Primary Care Provider: Dilshad Anderson DO Diagnoses at Discharge Discharge Diagnosis (1) Exertional dyspnea: Status: Acute (2) BETH on CPAP: Status: Chronic (3) Pulmonary embolism: Status: Chronic Permanent problem details: Unprovoked, 2019, on chronic anticoagulation with rivaroxaban, CTA chest 07/2022 with no focal PE identified (4) Fracture of rib: Status: Acute Permanent problem details: right 10th rib (5) Acute exacerbation of chronic obstructive airways disease: Status: Acute Reason for Visit Reason for Visit: SOB Hospital Course Hospital Course 58-year-old male with history of COPD, not oxygen dependent, sleep apnea, on Xarelto for DVT presented with COPD exacerbation. Patient did well on BiPAP, use of steroid, lung imaging consistent with COPD related changes no signs of pneumonia or consolidation. Home oxygen evaluation requested before discharge, he did not qualify for oxygen. Remained hemodynamically stable. White count 10.0. Afebrile. Troponin trending down. Viral panel negative. Medrol pack at the time of discharge added Physical Exam Narrative: Tall male Currently doing well on room air Hemodynamically stable Abdomen soft Nonfocal neuro exam Pleasant and cooperative EOMI, PERRLA Discharge Data Studies Completed and Pending Completed Studies During Hospitalization Category Date Time Status XR chest 1V portable [id number] Stat Exams 08/15/22 23:49 Completed Pending at discharge Category Date Time Status Blood Culture Stat Lab 08/15/22 23:49 Results Sputum Culture and Gram Stain Stat Lab 08/16/22 05:30 Results Radiology Impressions Chest X-Ray 08/15/22 23:49 IMPRESSION: 1. Background of emphysema and mild bronchiectasis. Subtle increased interstitial opacities are present bilaterally, findings that could represent mild interstitial pneumonitis Laboratory Results WBC 10.0 10^3/uL (4.0-10.0) 08/17/22 04:29 RBC 3.89 10^6/uL (4.1-5.3) L 08/17/22 04:29 Hgb 11.1 g/dL (11.7-16.6) L 08/17/22 04:29 Hct 35.5 % (42.0-52.0) L 08/17/22 04:29 MCV 91.3 fl (80-94) 08/17/22 04:29 MCH 28.5 pg (28.0-34.0) 08/17/22 04:29 MCHC 31.3 g/dL (30.0-36.0) 08/17/22 04:29 RDW 12.8 % (12.1-15.1) 08/17/22 04:29 Plt Count 188 10^3/cmm (130-400) 08/17/22 04:29 MPV 10.9 fL (7.4-10.4) H 08/17/22 04:29 Neut % (Auto) 93.8 % 08/17/22 04: Lymph % (Auto) 3.0 % 08/17/22 04:29 [place] % (Auto) 2.4 % 08/17/22 04:29 Eos % (Auto) 0.1 % 08/17/22 04:29 Baso % (Auto) 0.1 % 08/17/22 04:29 Neut # (Auto) 9.41 10^3/uL (1.8-7.7) H 08/17/22 04:29 Lymph # (Auto) 0.3 10^3/uL (0.8-4.8) L 08/17/22 04:29 [place] # (Auto) 0.2 10^3/uL (0.2-0.9) 08/17/22 04:29 Eos # (Auto) 0.0 10^3/uL (0.0-0.8) 08/17/22 04:29 Baso # (Auto) 0.0 10^3/uL (0.0-0.1) 08/17/22 04:29 Nucleated RBC % (auto) 0 % 08/17/22 04:29 Nucleated RBCs # 0.0 /100WBC 08/17/22 04:29 Specimen Type Arterial 08/15/22 00:45 Sample Site Radial, right 08/15/22 00:45 ABG pH 7.31 (7.35-7.45) L 08/15/22 00:45 ABG pCO2 58.8 mmHg (35-45) H 08/15/22 00:45 ABG pO2 65.7 mmHg (80.0-100.0) L 08/15/22 00:45 ABG HCO3 29.5 mmol/L (22-26) H 08/15/22 00:45 ABG Base Excess 1.9 mmol/L (-2.0-2.0) 08/15/22 00:45 Tarun Test Pos 08/15/22 00:45 Hematocrit 38.9 % (42-52) L 08/15/22 00:45 Hgb O2 Saturation 90.8 % (95-100) L 08/15/22 00:45 Carboxyhemoglobin 1.0 %THgb (0.4-20.1) 08/15/22 00:45 Methemoglobin 1.0 % (0.4-1.5) 08/15/22 00:45 Total Hemoglobin 12.7 g/dL (14-18) L 08/15/22 00:45 O2 Delivery Device Nc 08/15/22 00:45 O2 Liters/Min 3.0 % 08/15/22 00:45 FiO2 32.0 % 08/15/22 00:45 Travel Pta ID Droch 08/15/22 00:45 Sodium 144 mmol/L (136-145) 08/17/22 04:29 Potassium 4.5 mmol/L (3.5-5.1) 08/17/22 04:29 Chloride 108 mmol/L (98-107) H 08/17/22 04:29 Carbon Dioxide 28 mmol/L (22-29) 08/17/22 04:29 Anion Gap 12.5 (5-19) 08/17/22 04:29 BUN 18 mg/dL (8-23) 08/17/22 04:29 Creatinine 0.9 mg/dL (0.7-1.2) 08/17/22 04:29 GFR Calculation 83.9 mL/min (90-130) L 08/17/22 04:29 Glucose 136 mg/dL (65-115) H 08/17/22 04:29 Calculated Osmolality 302 mOsm/kg (285-295) H 08/17/22 04:29 Lactic Acid 0.8 mmol/L (0.5-2.2) 08/16/22 00:49 Calcium 9.3 mg/dL (8.5-10.5) 08/17/22 04:29 Magnesium 2.0 mg/dL (1.7-2.3) 08/17/22 04:29 Total Bilirubin 0.2 mg/dL (0.15-1.2) 08/17/22 04:29 AST 16 U/L (0-40) 08/17/22 04:29 ALT 25 U/L (0-41) 08/17/22 04:29 Alkaline Phosphatase 87 U/L (40-130) 08/17/22 04:29 Troponin T Baseline 15 ng/L (0-15) 08/15/22 00:00 Troponin T 120 Minute 34.15 ng/L (0-15) H 08/16/22 02:15 Delta Troponin T 19.15 ABS# (0-10) H* 08/16/22 02:15 Troponin T Hi Sens 6Hr 32.19 ng/L (0-15) H 08/16/22 06:30 Troponin T Hi Sens 6Hr Delta 17.19 ng/L (0-12) H* 08/16/22 06:30 NT-Pro-B Natriuret Pep 87 pg/mL (0-125) 08/15/22 00:00 Total Protein 5.8 g/dL (6.6-8.7) L 08/17/22 04:29 Albumin 3.8 g/dL (3.5-5.2) 08/17/22 04:29 Globulin 2.0 g/dL (1.3-4.6) 08/17/22 04:29 Procalcitonin 0.12 ng/mL (0-0.5) 08/16/22 02:15 Influenza Type A Ag negative (Negative) 08/16/22 00:07 Influenza Type B Ag negative (Negative) 08/16/22 00:07 SARS-CoV-2 Ag (Rapid) negative (Negative) 08/16/22 00:07 Vitals Last Vital Signs Temp 97.9 F 08/17/22 04:00 Pulse 60 08/17/22 07:54 Resp 18 08/17/22 07:54 BP 115/65 08/17/22 04:00 Pulse Ox 98 08/17/22 07:54 O2 Del Method 08/17/22 07:49 O2 Flow Rate 1 08/16/22 11:33 FiO2 30 08/17/22 03:57 Discharge Plan Discharge Patient Disposition: Home Condition: Stable Prescriptions: New Medrol (Otilio) 4 mg tablets,dose pack See Rx Instructions .ROUTE .COMPLEX Qty: 21 0RF Rx Instructions: orally per package directions azithromycin 250 mg tablet 250 mg PO DAILY 5 Days Qty: 5 0RF Continued buspirone 15 mg tablet 15 mg PO TID ipratropium-albuterol 0.5 mg-3 mg(2.5 mg base)/3 mL solution for nebulization 3 ml inhalation Q6H PRN (Reason: Shortness Of Breath) levalbuterol tartrate 45 mcg/actuation HFA aerosol inhaler 2 inh inhalation Q6H PRN (Reason: shortness of breath or wheezing) guaifenesin 400 mg tablet 400 mg PO Q4H PRN (Reason: congestion) hydroxyzine HCl 50 mg tablet 50 mg PO BID PRN (Reason: Anxiety) rivaroxaban 20 mg tablet 20 mg PO QAM Rx Instructions: must administer with evening meal sertraline 100 mg tablet 200 mg PO QAM atorvastatin 40 mg tablet 20 mg PO QAM Breztri Aerosphere 160-9-4.8 mcg/actuation HFA aerosol inhaler 2 inh inhalation BID Qty: 10.7 3RF hydrocodone-acetaminophen 5-325 mg tablet 1 tab PO Q6H PRN (Reason: pain) Qty: 25 0RF diazepam 10 mg tablet 5 - 10 mg PO BID PRN (Reason: Anxiety) clotrimazole-betamethasone 1-0.05 % Cream 1 applic TOPICAL PRN PRN (Reason: Wound Care) Rx Instructions: patient states I use it when I have a burn or a cut. bismuth subsalicylate 525 mg/15 mL Suspension 525 mg PO Q30M PRN (Reason: Nausea) Rx Instructions: do not exceed 8 doses in a 24 hour period Discontinued prednisone 20 mg tablet See Taper PO TID Qty: 15 0RF Taper: predniSONE 60-10 60 mg Daily for 2 Days and 0 Hour 50 mg Daily for 2 Days and 0 Hour 40 mg Daily for 2 Days and 0 Hour 30 mg Daily for 2 Days and 0 Hour 20 mg Daily for 2 Days and 0 Hour 10 mg Daily for 2 Days and 0 Hour Rx Instructions: 1 p.o. 3 times daily x3 days, 1 p.o. twice daily x2 days, 1 p.o. daily x2 days naproxen 375 mg Tablet 375 mg PO BID PRN (Reason: pain) Discharge Orders: Discharge Order (Routine); Ordered 08/17/22 Ordered By: Steve Guillermo Referrals: Dilshad Anderson DO [Primary Care Provider] - 08/21/22 10:30 am Patient Instructions: COPD, COPD Stoplight, Opioid Safety Discharge Attestations Time Spent in Discharge Care*: less than 30 min Quality Metrics Clinical Quality Measures [ No reported AMI, CVA or VTE this stay] Coding Level of Care Code Acute g [facility] note Diagnoses Exertional dyspnea R06.09 BETH on CPAP G47.33; Z99.89 Pulmonary embolism I26.99 Fracture of rib S22.39XA Acute exacerbation of chronic obstructive airways disease J44.1
[2022-08-17] MEDS: sertraline 100 mg Tablet 200 MG PO (08:01)
[2022-08-17] MEDS: BuSPIRONE 10 mg Tablet 15 MG PO (08:01)
[2022-08-17] MEDS: atorvastatin 40 mg Tablet 20 MG PO (08:01)
[2022-08-17] MEDS: pantoprazole DR 40 mg Tablet PO (08:02)
[2022-08-17] MEDS: azithromycin 250 mg Tablet PO (08:02)
== END 2022-08-17 12:45 | disposition home or self-care (01) ==
LOC: ER 08-16 01:04 → MEDSURG 08-16 03:36
PROVIDERS: Admitting Provider Internal Medicine; Emergency Provider Emergency Medicine; PCP Emergency Medicine Emergency Medical Services; Visit Provider Internal Medicine
DX: J44.1 Chronic obstructive pulmonary disease with (acute) exacerbation (principal); R06.09 Other forms of dyspnea; G47.33 Obstructive sleep apnea (adult) (pediatric); Z99.89 Dependence on other enabling machines and devices; I26.99 Other pulmonary embolism without acute cor pulmonale; S22.39XA Fracture of one rib, unspecified side, initial encounter for closed fracture; X58.XXXA Exposure to other specified factors, initial encounter; Z79.01 Long term (current) use of anticoagulants; Z86.718 Personal history of other venous thrombosis and embolism; E78.5 Hyperlipidemia, unspecified; Z87.891 Personal history of nicotine dependence; F41.9 Anxiety disorder, unspecified; M19.90 Unspecified osteoarthritis, unspecified site
CPT/HCPCS: 36415; 36600; 71045; 80053; 82805; 83605; 83735; 83880; 84145; 84484; 85025; 87040; 87070; 87077; 87205; 87426; 87804; 93005; 94640; 94660; 94760; 96365; 96367; 96375; 96376; 99291; G0378; J0456; J1956; J2060; J2930; J3475; J7030; J7050; Q0144

== ENCOUNTER → 2022-10-15 09:37 | Outpatient (BNVA) | payer OTHER, SELFPAY | PROVIDERS: PCP Emergency Medicine Emergency Medical Services; Visit Provider Internal Medicine Pulmonary Disease | DX: J44.1 Chronic obstructive pulmonary disease with (acute) exacerbation (principal); R06.09 Other forms of dyspnea; Z71.6 Tobacco abuse counseling; G47.33 Obstructive sleep apnea (adult) (pediatric); Z99.89 Dependence on other enabling machines and devices; F17.210 Nicotine dependence, cigarettes, uncomplicated; Z86.711 Personal history of pulmonary embolism; Z79.01 Long term (current) use of anticoagulants; F41.9 Anxiety disorder, unspecified | CPT/HCPCS: 99214 ==

== ENCOUNTER 2022-11-02 08:38 | Emergency (ER) | payer OTHER, SELFPAY ==
[2022-11-02 08:40] VITALS: BP 135/80; PULSE 75; RESP 20; TEMP 36.9; O2SAT 97; BMI 30.2
--- NOTE | 2022-11-02 08:40 | XR_ITS ---
WS: [id number] Exam: XR chest 1V portable [id number] Date/Time of Exam: 11/02/2022 8:47 AM Reason For Exam: dyspnea/cough Comparison 08/15/2022. The lungs are fully expanded. No acute infiltrates are identified. Normal cardiomediastinal silhouett e for technique. Regional bony elements are intact. XR/XR chest 1V portable [id number] IMPRESSION: 1. No acute cardiopulmonary finding.
--- NOTE | 2022-11-02 08:41 | W.ED.SOB ---
HPI - SOB/Dyspnea General: Chief Complaint: Shortness of Breath/Dyspnea Stated Complaint: SOB Time Seen by Provider: 11/02/22 08:40 Source: patient Mode of arrival: EMS History of Present Illness: HPI Narrative: 67-year-old male who presents emergency room via EMS. Has a history of COPD 2 to 3 days ago he began having shortness of breath feels like is gotten increasingly worse said a nonproductive cough. He does not normally wear oxygen. He has vague complaints of chest discomfort as well as joint pain. He has not had any an ostomy and no diarrhea. He generalized myalgias throughout. MD elicited complaint: shortness of breath Pertinent past history: COPD Onset (ago): day(s) (2) Timing: constant Severity: mild Exacerbating factors: nothing Relieving factors: nothing Known history of: COPD Associated symptoms: Reports cough and extremity pain; Deny abdominal pain, chest congestion, chest pain, diaphoresis, dizziness, fever(s), hemoptysis, lightheadedness, myalgias, nausea, orthopnea, palpitations, paresthesias, polydipsia, polyuria, rash, sense of impending doom, syncope or vomiting Treatment prior to arrival: none Review of Systems Const: Denies: fever(s), chills, fatigue, malaise or diaphoresis ENMT: Denies: throat pain, ear or mastoid pain, nasal discharge or nasal congestion Card: Denies: chest pain, palpitations, lightheadedness, syncope or orthopnea Resp: Reports: dyspnea, non-productive cough and wheezing; Denies: productive cough, hemoptysis or chest congestion GI: Denies: abdominal pain, nausea or vomiting : Denies: flank pain, dysuria, urinary frequency or urinary urgency Musc: Reports: neck pain, back pain, extremity pain and joint pain Skin/Breast: Denies: rash or pruritus Neuro: Denies: dizziness Endo: Denies: polyuria or polydipsia PFSH ED PFSH: Medical History Acute exacerbation of chronic obstructive airways disease Anxiety related to PTSD, can be severe, takes benzodiazepines as needed and buspar scheduled Chronic anticoagulation xarelto, for history of PE in 2019 COPD (chronic obstructive pulmonary disease) Erectile dysfunction Exertional dyspnea Fracture of rib (~07/2022) right 10th rib Hearing loss History of cardiovascular stress test 04/2022 false positive History of PFTs 06/2022 Severe airflow obstruction, no post bronchodilator study, lung volumes not measured, moderate gas transfer defect. Consistent with obstructive ventilatory disease. History of smoking 70-100 pack years, quit ~03/2022 Hyperlipidemia Malignant neoplasm of prostate s/p TURP BETH on CPAP Osteoarthritis PTSD (post-traumatic stress disorder) Pulmonary embolism Unprovoked, 2019, on chronic anticoagulation with rivaroxaban, CTA chest 07/2022 with no focal PE identified Surgical History History of appendectomy History of cardiac catheterization 05/2022 [place], no obstructive CAD History of cholecystectomy 2006 History of colonoscopy 2013 no abnormalities History of inguinal hernia repair right History of repair of congenital cleft palate History of thoracotomy trauma from left rib fracture while on anticoagulation History of tonsillectomy History of transurethral resection of prostate 2014, for prostate cancer History of vasectomy with subsequent failed reversal Family History Father Stroke Dementia CAD (coronary artery disease) Other Anxiety Social History Smoking and tobacco status: former smoker (1 cig/day) Quit status (tobacco): has quit using tobacco Former quit date comment: 03/2022 Alcohol intake: current Alcohol intake frequency: few times a week Alcohol type: hard liquor Household members: spouse Marital status: service: Yes status details: 15 years [employer], 5 years [employer], 100% service connected Physical Exam Const: GENERAL APPEARANCE: cooperative and comfortable ORIENTATION/CONSCIOUSNESS: Yes awake, Yes oriented to person, Yes oriented to place and Yes oriented to time HENMT: COMMON NORMALS: normocephalic, atraumatic and hearing grossly normal bilaterally HEAD & SCALP: normocephalic and atraumatic Resp: COMMON NORMALS: normal respiratory effort, No retractions and No use of accessory muscles AUSCULTATION: wheezes Cardio: COMMON NORMALS: regular rate, regular rhythm and No murmurs present (Cardio) RATE: regular rate RHYTHM: regular rhythm GI: COMMON NORMALS: Soft to palpation and No hepatosplenomegaly present AUSCULTATION: Yes normoactive bowel sounds PALPATION: Yes Soft to palpation, No Tenderness to palpation present (GI), No Guarding due to palpation present (GI) and Yes No hepatosplenomegaly present Extremity: COMMON NORMALS: normal to inspection, capillary refill normal, no clubbing, cyanosis or edema, no calf tenderness and no pedal edema Neuro: SENSORIUM/ORIENTATION: Yes oriented to person, Yes oriented to place and Yes oriented to time Skin: COMMON NORMALS: no rashes or lesions noted GENERAL SKIN EXAM: no rashes or lesions noted Course Vital Signs: Vital signs: Vital Signs Temperature 98.4 F 11/02/22 08:40 Pulse Rate 73 11/02/22 09:24 Respiratory Rate 16 11/02/22 09:20 Blood Pressure 123/65 11/02/22 08:57 Pulse Oximetry 95 11/02/22 10:16 Oxygen Delivery Me thod 11/02/22 09:20 Oxygen Flow Rate 2 11/02/22 08:57 MDM - SOB/Dyspnea Medical Decision Making Labs and imaging reviewed. Exacerbation COPD EKG is unremarkable patient has improvement after nebulizers and steroids. Will discharge home on nebulizers steroid taper. Due to home O2 eval which was negative he does not require oxygen. Follow-up with primary care doctor within the next week return if has further problems. There is no sign of pneumonia or infiltrate or even bronchial thickening we did not prescribe antibiotics. Medical Records I reviewed the patient's medical records. Lab Data I reviewed the patient's lab results. 11/02/22 08:20 11/02/22 08:20 Labs/Radiology: Radiology Impressions Chest X-Ray 11/02/22 08:40 IMPRESSION: 1. No acute cardiopulmonary finding. Laboratory Results WBC 4.7 10^3/uL (4.0-10.0) 11/02/22 08:20 RBC 4.57 10^6/uL (4.1-5.3) 11/02/22 08:20 Hgb 13.0 g/dL (11.7-16.6) 11/02/22 08:20 Hct 39.7 % (42.0-52.0) L 11/02/22 08:20 MCV 86.9 fl (80-94) 11/02/22 08:20 MCH 28.4 pg (28.0-34.0) 11/02/22 08:20 MCHC 32.7 g/dL (30.0-36.0) 11/02/22 08:20 RDW 12.9 % (12.1-15.1) 11/02/22 08:20 Plt Count 173 10^3/cmm (130-400) 11/02/22 08:20 MPV 10.7 fL (7.4-10.4) H 11/02/22 08:20 Neut % (Auto) 73.0 % 11/02/22 08:20 Lymph % (Auto) 8.5 % 11/02/22 08:20 [place] % (Auto) 8.1 % 11/02/22 08:20 Eos % (Auto) 8.7 % 11/02/22 08:20 Baso % (Auto) 1.1 % 11/02/22 08:20 Neut # (Auto) 3.42 10^3/uL (1.8-7.7) 11/02/22 08:20 Lymph # (Auto) 0.4 10^3/uL (0.8-4.8) L 11/02/22 08:20 [place] # (Auto) 0.4 10^3/uL (0.2-0.9) 11/02/22 08:20 Eos # (Auto) 0.4 10^3/uL (0.0-0.8) 11/02/22 08:20 Baso # (Auto) 0.1 10^3/uL (0.0-0.1) 11/02/22 08:20 Nucleated RBC % (auto) 0 % 11/02/22 08:20 Nucleated RBCs # 0.0 /100WBC 11/02/22 08:20 Specimen Type Arterial 11/02/22 08:44 Sample Site Radial, left 11/02/22 08:44 ABG pH 7.39 (7.35-7.45) 11/02/22 08:44 ABG pCO2 43.1 mmHg (35-45) 11/02/22 08:44 ABG pO2 81.4 mmHg (80.0-100.0) 11/02/22 08:44 ABG HCO3 25.9 mmol/L (22-26) 11/02/22 08:44 ABG O2 Saturation 96.0 11/02/22 08:44 ABG Base Excess 0.6 mmol/L (-2.0-2.0) 11/02/22 08:44 Tarun Test Pos 11/02/22 08:44 A-a O2 Gradient 2.0 mmHg (5-10) L 11/02/22 08:44 Hematocrit 40.2 % (42-52) L 11/02/22 08:44 Hgb O2 Saturation 94.7 % (95-100) L 11/02/22 08:44 Carboxyhemoglobin 0.7 %THgb (0.4-20.1) 11/02/22 08:44 Methemoglobin 0.7 % (0.4-1.5) 11/02/22 08:44 Total Hemoglobin 13.1 g/dL (14-18) L 11/02/22 08:44 Sodium 142.0 mmol/L (131-143) 11/02/22 08:44 Potassium 4.0 mmol/L (3.5-5.0) 11/02/22 08:44 Glucose 100.0 mg/dL (70-115) 11/02/22 08:44 Ionized Calcium 1.2 mmol/L (1.1-1.4) 11/02/22 08:44 O2 Delivery Device Nc 11/02/22 08:44 O2 Liters/Min 2.0 % 11/02/22 08:44 Electrical Manufacturing Technician ID [place] 11/02/22 08:44 Sodium 143 mmol/L (136-145) 11/02/22 08:20 Potassium 4.2 mmol/L (3.5-5.1) 11/02/22 08:20 Chloride 108 mmol/L (98-107) H 11/02/22 08:20 Carbon Dioxide 24 mmol/L (22-29) 11/02/22 08:20 Anion Gap 15.2 (5-19) 11/02/22 08:20 BUN 16 mg/dL (8-23) 11/02/22 08:20 Creatinine 0.8 mg/dL (0.7-1.2) 11/02/22 08:20 GFR Calculation 95.8 mL/min (90-130) 11/02/22 08:20 Glucose 88 mg/dL (65-115) 11/02/22 08:20 Calculated Osmolality 297 mOsm/kg (285-295) H 11/02/22 08:20 Calcium 8.9 mg/dL (8.5-10.5) 11/02/22 08:20 Total Bilirubin 0.3 mg/dL (0.15-1.2) 11/02/22 08:20 AST 13 U/L (0-40) 11/02/22 08:20 ALT 13 U/L (0-41) 11/02/22 08:20 Alkaline Phosphatase 70 U/L (40-130) 11/02/22 08:20 Total Protein 6.1 g/dL (6.6-8.7) L 11/02/22 08:20 Albumin 4.1 g/dL (3.5-5.2) 11/02/22 08:20 Globulin 2.0 g/dL (1.3-4.6) 11/02/22 08:20 Coronavirus 229E (PCR) Not detected (NOT DETECT) 11/02/22 10:00 SARS-CoV-2 (PCR) Not detected (NOT DETECT) 11/02/22 10:00 Discharge Plan Discharge Patient Disposition: Home Clinical Impression: Acute exacerbation of chronic obstructive airways disease Condition: Stable Prescriptions: New prednisone 20 mg tablet 20 mg PO TID Qty: 15 0RF Rx Instructions: 1 p.o. 3 times daily x3 days, 1 p.o. twice daily x2 days, 1 p.o. daily x2 days albuterol sulfate 90 mcg/actuation HFA aerosol inhaler 2 inh INHALATION Q4H PRN (Reason: shortness of breath or wheezing) Qty: 18 0RF Discontinued methylprednisolone [Medrol (Otilio)] 4 mg tablets,dose pack See Rx Instructions .ROUTE .COMPLEX Qty: 21 0RF Rx Instructions: orally per package directions No Action buspirone 15 mg tablet 15 mg PO TID ipratropium-albuterol 0.5 mg-3 mg(2.5 mg base)/3 mL solution for nebulization 3 ml inhalation Q6H PRN (Reason: Shortness Of Breath) levalbuterol tartrate 45 mcg/actuation HFA aerosol inhaler 2 inh inhalation Q6H PRN (Reason: shortness of breath or wheezing) guaifenesin 400 mg tablet 400 mg PO Q4H PRN (Reason: congestion) hydroxyzine HCl 50 mg tablet 50 mg PO BID PRN (Reason: Anxiety) rivaroxaban 20 mg tablet 20 mg PO QAM Rx Instructions: must administer with evening meal sertraline 100 mg tablet 200 mg PO QAM atorvastatin 40 mg tablet 20 mg PO QAM Breztri Aerosphere 160-9-4.8 mcg/actuation HFA aerosol inhaler 2 inh inhalation BID Qty: 10.7 3RF hydrocodone-acetaminophen 5-325 mg tablet 1 tab PO Q6H PRN (Reason: pain) Qty: 25 0RF diazepam 10 mg tablet 5 - 10 mg PO BID PRN (Reason: Anxiety) clotrimazole-betamethasone 1-0.05 % Cream 1 applic TOPICAL PRN PRN (Reason: Wound Care) Rx Instructions: patient states I use it when I have a burn or a cut. bismuth subsalicylate 525 mg/15 mL Suspension 525 mg PO Q30M PRN (Reason: Nausea) Rx Instructions: do not exceed 8 doses in a 24 hour period Discharge Orders: Discharge ED (Routine); Ordered 11/02/22 Ordered By: Sandro Gale Referrals: Dilshad Anderson DO [Primary Care Provider] - Discharge Diet: Usual diet Discharge Activity: Increase activity as tolerated Patient Instructions: Opioid Safety, Pain Management Activity Restrictions/Additional Instructions: You are seen today for shortness of breath. Your chest x-ray was normal and labs were reviewed. You have an acute exacerbation of your COPD recommend a steroid taper albuterol as needed follow-up as needed with your primary care doctor. Coding Level of Care Code ED Facility Technician for Portia Mcneal
[2022-11-02 08:55] LABS: ABG PCO2 43.1 mmHg (35-45); ABG PH Result 7.39 (7.35-7.45); Arterial Blood Gas Hematocrit 40.2 % (42-52); Base Excess ABG 0.6 mmol/L (-2.0-2.0); Blood Gas Allen Test Pos; Blood Gas Operator Identificat WALCI; Blood Gas Sample Site Radial, left; Blood Gas Sample Type Arterial; Carboxyhemoglobin 0.7 %THgb (0.4-20.1); HCO3 ABG 25.9 mmol/L (22-26); HGB O2 Sat 94.7 % (95-100); Ionized Calcium Level - ABG 1.2 mmol/L (1.1-1.4); Methemoglobin 0.7 % (0.4-1.5); Oxygen Device NC; PO2 ABG 81.4 mmHg (80.0-100.0); Total Hemoglobin 13.1 g/dL (14-18)
[2022-11-02 08:57] VITALS: BP 123/65; O2SAT 98
[2022-11-02 08:58] LABS: Basophils # 0.1 10^3/uL (0.0-0.1); Basophils % 1.1 %; Eosinophils # 0.4 10^3/uL (0.0-0.8); Eosinophils % 8.7 %; Hematocrit 39.7 % (42.0-52.0); Lymphocytes # 0.4 10^3/uL (0.8-4.8); Lymphocytes % 8.5 %; Mean Corpuscular HGB Conc 32.7 g/dL (30.0-36.0); Mean Corpuscular Hemoglobin 28.4 pg (28.0-34.0); Mean Corpuscular Volume 86.9 fl (80-94); Mean Platelet Volume 10.7 fL (7.4-10.4); Monocytes # 0.4 10^3/uL (0.2-0.9); Monocytes % 8.1 %; Neutrophils # 3.42 10^3/uL (1.8-7.7); Nucleated Red Blood Cells % 0 %; Platelet Count 173 10^3/cmm (130-400); Red Blood Count 4.57 10^6/uL (4.1-5.3); Red Cell Distribution Width 12.9 % (12.1-15.1); White Blood Count 4.7 10^3/uL (4.0-10.0)
[2022-11-02] MEDS: ipratropium-albuterol 3 mL Neb INHALATION (09:19)
[2022-11-02 09:20] VITALS: PULSE 72; RESP 16; O2SAT 98
[2022-11-02 09:22] LABS: Alanine Aminotransferase 13 U/L (0-41); Albumin Level 4.1 g/dL (3.5-5.2); Alkaline Phosphatase 70 U/L (40-130); Anion Gap 15.2 (5-19); Aspartate Amino Transferase 13 U/L (0-40); Blood Urea Nitrogen 16 mg/dL (8-23); Calcium 8.9 mg/dL (8.5-10.5); Carbon Dioxide 24 mmol/L (22-29); Chloride 108 mmol/L (98-107); Glomerular Filtration Rate 95.8 mL/min (90-130); Glucose 88 mg/dL (65-115); Osmolality Calculated 297 mOsm/kg (285-295); Potassium 4.2 mmol/L (3.5-5.1); Sodium 143 mmol/L (136-145); Total Bilirubin 0.3 mg/dL (0.15-1.2); Total Protein 6.1 g/dL (6.6-8.7)
[2022-11-02 09:24] VITALS: PULSE 73
[2022-11-02 10:16] VITALS: O2SAT 95
[2022-11-02 12:00] LABS: Adenovirus Not Detected (NOT DETECT); Chlamydia Pneumoniae Not Detected (NOT DETECT); Coronavirus 229E,HKU1,NL63,OC4 Not Detected (NOT DETECT); Human Metapneumovirus Not Detected (NOT DETECT); Human Rhinovirus/Enterovirus Not Detected (NOT DETECT); Influenza A Not Detected (NOT DETECT); Influenza A H1 Not Detected (NOT DETECT); Influenza A H1-2009 Not Detected (NOT DETECT); Influenza A H3 Not Detected (NOT DETECT); Influenza B Not Detected (NOT DETECT); Mycoplasma Pneumoniae Not Detected (NOT DETECT); Parainfluenza Virus Type 1 Not Detected (NOT DETECT); Parainfluenza Virus Type 2 Not Detected (NOT DETECT); Parainfluenza Virus Type 3 Not Detected (NOT DETECT); Parainfluenza Virus Type 4 Not Detected (NOT DETECT); Respiratory Syncytial Virus A Not Detected (NOT DETECT); Respiratory Syncytial Virus B Not Detected (NOT DETECT); SARS-COV-2 Not Detected (NOT DETECT)
== END 2022-11-02 10:29 | disposition home or self-care (01) ==
PROVIDERS: Emergency Provider Family Medicine; PCP Emergency Medicine Emergency Medical Services
DX: J44.1 Chronic obstructive pulmonary disease with (acute) exacerbation (principal); Z20.822 Contact with and (suspected) exposure to COVID-19; Z87.891 Personal history of nicotine dependence; E78.5 Hyperlipidemia, unspecified; Z85.46 Personal history of malignant neoplasm of prostate
CPT/HCPCS: 36600; 71045; 80051; 80053; 82330; 82805; 85025; 87635; 94640; 96374; 99284; J2930

== ENCOUNTER 2023-02-11 17:28 | Emergency (ER) | payer OTHER, SELFPAY ==
[2023-02-11 17:31] VITALS: BP 124/75; PULSE 75; RESP 20; TEMP 36.6; O2SAT 92
--- NOTE | 2023-02-11 17:45 | XRR_ITS ---
PROCEDURE INFORMATION: Exam: XR Left Ribs with PA Chest Exam date and time: 02/11/2023 5:51 PM Age: 67 years old Clinical indication: Chest wall pain; Left TECHNIQUE: Imaging protocol: Radiologic exam of the left ribs with PA chest. Views: 3 views COMPARISON: CR XR chest 1V portable [id number] 11/02/2022 8:53 AM FINDINGS: Lungs: Emphysematous change with mild interstitial scarring or fibrosis. No consolidation. Pleural spaces: Unremarkable. No pleural effusion. No pneumothorax. Heart/Mediastinum: Unremarkable. No cardiomegaly. Bones/joints: Several old or healed rib fracture deformities are seen on the left. Exam of the lower left ribs (image 3) demonstrates acute appearing rib fracture of the anterior aspect of the 10th rib with mild cortical angulation at the fracture site. No other acute rib fracture seen. XR/XR ribs LT mn 3V w CXR1V [id number] IMPRESSION: 1. Mild acute rib fracture of the anterior aspect of the 10th rib the left is seen, as noted above.
--- NOTE | 2023-02-11 17:47 | W.ED.CHESTPA ---
HPI - Chest Pain General: Chief Complaint: Chest Pain Stated Complaint: chest pain Time Seen by Provider: 02/11/23 17:39 History of Present Illness: Patient comes in today with complaints of left anterior rib pain. Patient reports he was reaching across with his left arm to get something off the table on the right side when he felt a sudden sharp pain in his left ribs. Patient reports he has had a history of rib fractures in that area and was concerned he may have reinjured the ribs. Patient has COPD with chronic shortness of breath. Patient does report being a little more short of breath than normal. Patient states that when he broke his ribs last time to have the draw off blood from the lung. Patient appears chronically ill. Patient takes medications for COPD, high cholesterol, and anticoagulation. Associated symptoms: Reports dyspnea Review of Systems General: Reports: 10 or more systems reviewed and unremarkable except in HPI and below Card: Reports: chest pain (Rib pain) Resp: Reports: dyspnea Musc: Reports: other (Left anterior rib discomfort) [facility] ED PFSH: Medical History Acute exacerbation of chronic obstructive airways disease Anxiety related to PTSD, can be severe, takes benzodiazepines as needed and buspar scheduled Chronic anticoagulation xarelto, for history of PE in 2019 COPD (chronic obstructive pulmonary disease) Erectile dysfunction Exertional dyspnea Fracture of rib (~07/2022) right 10th rib Hearing loss History of cardiovascular stress test 04/2022 false positive History of PFTs 06/2022 Severe airflow obstruction, no post bronchodilator study, lung volumes not measured, moderate gas transfer defect. Consistent with obstructive ventilatory disease. History of smoking 70-100 pack years, quit ~03/2022 Hyperlipidemia Malignant neoplasm of prostate s/p TURP BETH on CPAP Osteoarthritis PTSD (post-traumatic stress disorder) Pulmonary embolism Unprovoked, 2019, on chronic anticoagulation with rivaroxaban, CTA chest 07/2022 with no focal PE identified Surgical History History of appendectomy History of cardiac catheterization 05/2022 [place], no obstructive CAD History of cholecystectomy 2006 History of colonoscopy 2013 no abnormalities History of inguinal hernia repair right History of repair of congenital cleft palate History of thoracotomy trauma from left rib fracture while on anticoagulation History of tonsillectomy History of transurethral resection of prostate 2014, for prostate cancer History of vasectomy with subsequent failed reversal Family History Father Stroke Dementia CAD (coronary artery disease) Other Anxiety Social History Smoking and tobacco status: former smoker (1 cig/day) Quit status (tobacco): has quit using tobacco Former quit date comment: 03/2022 Alcohol intake: current Alcohol intake frequency: few times a week Alcohol type: hard liquor Substance/Drug Use: current Substance/Drug use frequency: Special occassions/opportunity only Household members: spouse Marital status: service: Yes status details: 15 years [employer], 5 years [employer], 100% service connected Physical Exam Const: COMMON NORMALS: alert HENMT: COMMON NORMALS: normocephalic HEAD & SCALP: normocephalic MOUTH: Normal oral and palatal mucosa present Neck/C-Spine: COMMON NORMALS: full ROM Chest: CHEST: Yes tenderness (Left anterior ribs, no crepitus or subcu emphysema) Resp: AUSCULTATION: wheezes Cardio: COMMON NORMALS: regular rate and regular rhythm RATE: regular rate RHYTHM: regular rhythm GI: COMMON NORMALS: Soft to palpation PALPATION: Yes Soft to palpation and No Guarding due to palpation present (GI) : COMMON NORMALS: Yes no CVA tenderness BLADDER/KIDNEY EXAM: Yes no CVA tenderness Back/Pelvis: COMMON NORMALS: no CVA tenderness Extremity: COMMON NORMALS: no pedal edema Neuro: SENSORIUM/ORIENTATION: Yes alert Skin: COMMON NORMALS: turgor normal GENERAL SKIN EXAM: turgor normal Course Vital Signs: Vital signs: Vital Signs Temperature 97.9 F 02/11/23 17:31 Pulse Rate 75 02/11/23 18:42 Respiratory Rate 18 02/11/23 18:40 Blood Pressure 124/75 02/11/23 17:31 Pulse Oximetry 92 02/11/23 18:40 Oxygen Delivery Me thod Nasal Cannula 02/11/23 18:40 MDM - Chest Pain Medical Decision Making 67-year-old male patient comes in today for complaints of left anterior rib pain. On exam patient has tenderness in the left anterior ribs, he has wheezing throughout lung aaron, no edema is noted in the extremities, skin is warm. Vital signs are normal. Differential diagnosis includes costochondritis, rib fracture, pleurisy, pneumonia, muscle strain. Fracture of the 10th rib with no significant displacement. Lung aaron are clear. Reviewed exam with patient recommended treatment with pain medication and follow-up as needed. Patient reported understanding and agreed to plan. Lab Data 02/11/23 17:10 02/11/23 17:10 Radiology Impressions Ribs X-Ray 02/11/23 17:45 IMPRESSION: 1. Mild acute rib fracture of the anterior aspect of the 10th rib the left is seen, as noted above. Discharge Plan Discharge Patient Disposition: Home Clinical Impression: Fracture, rib Qualifiers: Encounter type: initial encounter Rib fracture type: single rib Fracture type: closed Laterality: left Qualified Code(s): S22.32XA - Fracture of one rib, left side, initial encounter for closed fracture COPD (chronic obstructive pulmonary disease) Qualifiers: COPD type: unspecified COPD Qualified Code(s): J44.9 - Chronic obstructive pulmonary disease, unspecified Condition: Stable Prescriptions: New hydrocodone-acetaminophen 5-325 mg tablet 1 tab PO Q8H PRN (Reason: pain (scale score 7-10)) Qty: 12 0RF No Action buspirone 15 mg tablet 15 mg PO TID ipratropium-albuterol 0.5 mg-3 mg(2.5 mg base)/3 mL solution for nebulization 3 ml inhalation Q6H PRN (Reason: Shortness Of Breath) levalbuterol tartrate 45 mcg/actuation HFA aerosol inhaler 2 inh inhalation Q6H PRN (Reason: shortness of breath or wheezing) guaifenesin 400 mg tablet 400 mg PO Q4H PRN (Reason: congestion) hydroxyzine HCl 50 mg tablet 50 mg PO BID PRN (Reason: Anxiety) rivaroxaban 20 mg tablet 20 mg PO QAM Rx Instructions: must administer with evening meal sertraline 100 mg tablet 200 mg PO QAM atorvastatin 40 mg tablet 20 mg PO QAM Breztri Aerosphere 160-9-4.8 mcg/actuation HFA aerosol inhaler 2 inh inhalation BID Qty: 10.7 3RF hydrocodone-acetaminophen 5-325 mg tablet 1 tab PO Q6H PRN (Reason: pain) Qty: 25 0RF diazepam 10 mg tablet 5 - 10 mg PO BID PRN (Reason: Anxiety) clotrimazole-betamethasone 1-0.05 % Cream 1 applic TOPICAL PRN PRN (Reason: Wound Care) Rx Instructions: patient states I use it when I have a burn or a cut. bismuth subsalicylate 525 mg/15 mL Suspension 525 mg PO Q30M PRN (Reason: Nausea) Rx Instructions: do not exceed 8 doses in a 24 hour period prednisone 20 mg tablet 20 mg PO TID Qty: 15 0RF Rx Instructions: 1 p.o. 3 times daily x3 days, 1 p.o. twice daily x2 days, 1 p.o. daily x2 days albuterol sulfate 90 mcg/actuation HFA aerosol inhaler 2 inh INHALATION Q4H PRN (Reason: shortness of breath or wheezing) Qty: 18 0RF Discharge Orders: Discharge ED (Routine); Ordered 02/11/23 Ordered By: Michel Cristina Referrals: Dilshad Anderson, [Primary Care Provider] - Discharge Diet: Usual diet Discharge Activity: Increase activity as tolerated Patient Instructions: Rib Fracture (ED) Activity Restrictions/Additional Instructions: Home and rest. Activity as tolerated. Splint ribs when taking a deep breath and/or coughing. Use acetaminophen as needed to control pain. Use hydrocodone for severe pain. Follow-up with primary care for further instructions. Coding Level of Care Code ED Boom Master for Portia Mcneal
[2023-02-11 18:40] VITALS: PULSE 89; RESP 18; O2SAT 92
[2023-02-11] MEDS: ipratropium-albuterol 3 mL Neb INHALATION (18:41)
[2023-02-11 18:42] VITALS: PULSE 75
[2023-02-11] MEDS: HYDROcodone-acetaminophen 5-325 mg Tablet 1 TAB PO (19:00)
[2023-02-11 19:03] VITALS: RESP 18; O2SAT 97
== END 2023-02-11 19:04 | disposition home or self-care (01) ==
PROVIDERS: Emergency Provider Nurse Practitioner Family; PCP Emergency Medicine Emergency Medical Services
DX: S22.32XA Fracture of one rib, left side, initial encounter for closed fracture (principal); J44.9 Chronic obstructive pulmonary disease, unspecified; Z87.891 Personal history of nicotine dependence; E78.5 Hyperlipidemia, unspecified; Z85.46 Personal history of malignant neoplasm of prostate; X58.XXXA Exposure to other specified factors, initial encounter
CPT/HCPCS: 71101; 85025; 94640; 99285

== ENCOUNTER 2023-03-21 13:27 | Emergency (ER) | payer OTHER, SELFPAY ==
[2023-03-21] VITALS (9 sets, daily range): BP systolic 113–152; BP diastolic 75–113; PULSE 68–90; RESP 16–28; TEMP 36.5; O2SAT 90–93; BMI 26.6
--- NOTE | 2023-03-21 13:42 | XRR_ITS ---
PROCEDURE INFORMATION: Exam: XR Chest Exam date and time: 03/21/2023 1:54 PM Age: 67 years old Clinical indication: Cough and dyspnea; Additional info: Dyspnea/cough TECHNIQUE: Imaging protocol: Radiologic exam of the chest. Views: 1 view. COMPARISON: CR (CHEST, ) 02/11/2023 5:51 PM FINDINGS: Lungs: Unremarkable. No consolidation. Pleural spaces: Unremarkable. No pleural effusion. No pneumothorax. Heart/Mediastinum: Unremarkable. No cardiomegaly. Bones/joints: Unremarkable. XR/XR chest 1V portable [id number] IMPRESSION: No acute findings.
[2023-03-21 13:53] LABS: Basophils % 0.6 %; Eosinophils # 0.8 10^3/uL (0.0-0.8); Eosinophils % 11.7 %; Hematocrit 38.2 % (42.0-52.0); Hemoglobin 12.3 g/dL (11.7-16.6); Lymphocytes # 0.9 10^3/uL (0.8-4.8); Lymphocytes % 12.1 %; Mean Corpuscular HGB Conc 32.2 g/dL (30.0-36.0); Mean Corpuscular Hemoglobin 28.6 pg (28.0-34.0); Mean Corpuscular Volume 88.8 fl (80-94); Mean Platelet Volume 10.1 fL (7.4-10.4); Monocytes # 0.4 10^3/uL (0.2-0.9); Monocytes % 5.8 %; Neutrophils # 4.93 10^3/uL (1.8-7.7); Neutrophils % 68.7 %; Nucleated Red Blood Cells % 0 %; Platelet Count 186 10^3/cmm (130-400); Red Cell Distribution Width 13.3 % (12.1-15.1); White Blood Count 7.2 10^3/uL (4.0-10.0)
--- NOTE | 2023-03-21 13:55 | ED_ITS ---
HPI - SOB/Dyspnea General: Chief Complaint: Shortness of Breath/Dyspnea Stated Complaint: SOB Time Seen by Provider: 03/21/23 13:41 Source: patient Mode of arrival: ambulatory History of Present Illness: HPI Narrative: 67-year-old male presents emergency room with complaint of shortness of breath and anxiety. He states it began last night. He states he feels like he has been hyperventilating and this is all what he describes as a mental breakdown. He does not identify any particular precipitating issues or events. He did try couple of nebulizers last night with only moderate relief of symptoms. He denies any chest pain or abdominal pain. MD elicited complaint: shortness of breath and cough Pertinent past history: COPD Onset (ago): day(s) (1) Timing: intermittent and progressively worsening Severity: mild Exacerbating factors: nothing Relieving factors: nothing Known history of: COPD Associated symptoms: Deny abdominal pain, chest congestion, chest pain, cough, diaphoresis, dizziness, extremity pain, fever(s), hemoptysis, lightheadedness, myalgias, nausea, orthopnea, palpitations, paresthesias, polydipsia, polyuria, rash, sense of impending doom, syncope, vomiting or other Review of Systems Const: Denies: fever(s), chills or diaphoresis ENMT: Denies: throat pain, ear or mastoid pain, nasal discharge or nasal congestion Card: Denies: chest pain, palpitations, lightheadedness, syncope or orthopnea Resp: Reports: dyspnea, non-productive cough and wheezing; Denies: hemoptysis or chest congestion GI: Denies: abdominal pain, nausea or vomiting : Denies: flank pain, dysuria, urinary frequency or urinary urgency Musc: Denies: extremity pain Skin/Breast: Denies: rash or pruritus Neuro: Denies: dizziness Endo: Denies: polyuria or polydipsia PFSH ED PFSH: Medical History Acute exacerbation of chronic obstructive airways disease Anxiety related to PTSD, can be severe, takes benzodiazepines as needed and buspar scheduled Chronic anticoagulation xarelto, for history of PE in 2019 COPD (chronic obstructive pulmonary disease) Erectile dysfunction Exertional dyspnea Fracture of rib (~07/2022) right 10th rib Hearing loss History of cardiovascular stress test 04/2022 false positive History of PFTs 06/2022 Severe airflow obstruction, no post bronchodilator study, lung volumes not measured, moderate gas transfer defect. Consistent with obstructive ventilatory disease. History of smoking 70-100 pack years, quit ~03/2022 Hyperlipidemia Malignant neoplasm of prostate s/p TURP BETH on CPAP Osteoarthritis PTSD (post-traumatic stress disorder) Pulmonary embolism Unprovoked, 2019, on chronic anticoagulation with rivaroxaban, CTA chest 07/2022 with no focal PE identified Surgical History History of appendectomy History of cardiac catheterization 05/2022 [place], no obstructive CAD History of cholecystectomy 2006 History of colonoscopy 2013 no abnormalities History of inguinal hernia repair right History of repair of congenital cleft palate History of thoracotomy trauma from left rib fracture while on anticoagulation History of tonsillectomy History of transurethral resection of prostate 2014, for prostate cancer History of vasectomy with subsequent failed reversal Family History Father Stroke Dementia CAD (coronary artery disease) Other Anxiety Social History Smoking and tobacco status: former smoker (1 cig/day) Quit status (tobacco): has quit using tobacco Former quit date comment: 03/2022 Alcohol intake: current Alcohol intake frequency: few times a week Alcohol type: hard liquor Substance/Drug Use: current Substance/Drug use frequency: Special occassions/opportunity only Household members: spouse Marital status: service: Yes status details: 15 years [employer], 5 years [employer], 100% service connected Physical Exam Const: GENERAL APPEARANCE: cooperative and comfortable ORIENTATION/CONSCIOUSNESS: Yes awake, Yes oriented to person, Yes oriented to place and Yes oriented to time HENMT: COMMON NORMALS: normocephalic, atraumatic and hearing grossly normal bilaterally HEAD & SCALP: normocephalic and atraumatic Resp: COMMON NORMALS: normal respiratory effort, No retractions and No use of accessory muscles AUSCULTATION: rhonchi and wheezes Cardio: COMMON NORMALS: regular rate, regular rhythm and No murmurs present (Cardio) RATE: regular rate RHYTHM: regular rhythm GI: COMMON NORMALS: Soft to palpation and No hepatosplenomegaly present AUSCULTATION: Yes normoactive bowel sounds PALPATION: Yes Soft to palpation, No Tenderness to palpation present (GI), No Guarding due to palpation present (GI) and Yes No hepatosplenomegaly present Extremity: COMMON NORMALS: normal to inspection, capillary refill normal, no clubbing, cyanosis or edema, no calf tenderness and no pedal edema Neuro: SENSORIUM/ORIENTATION: Yes oriented to person, Yes oriented to place and Yes oriented to time Skin: COMMON NORMALS: no rashes or lesions noted GENERAL SKIN EXAM: no rashes or lesions noted Course Vital Signs: Vital signs: Vital Signs Temperature 97.7 F 03/21/23 13:27 Pulse Rate 68 03/21/23 16:47 Respiratory Rate 18 03/21/23 16:47 Blood Pressure 152/113 03/21/23 16:47 Pulse Oximetry 91 03/21/23 16:47 Oxygen Delivery Me thod Room Air 03/21/23 16:47 Oxygen Flow Rate 4 03/21/23 15:44 MDM - SOB/Dyspnea Medical Decision Making Improved after nebulizer steroids particularly with the Ativan. No longer requiring any oxygen his breathing is much improved she does still desat a lit tle bit when sleeping but he has known sleep apnea and it improves his symptoms he wakes up. Discharge patient home on steroid taper. Continue to use nebulizers every 4 hours as needed. Follow-up with his primary care doctor return if is worsening problems. Medical Records I reviewed the patient's medical records. Lab Data I reviewed the patient's lab results. 03/21/23 13:44 03/21/23 13:44 Labs/Radiology: Radiology Impressions Chest X-Ray 03/21/23 13:42 IMPRESSION: No acute findings. Laboratory Results WBC 7.2 10^3/uL (4.0-10.0) 03/21/23 13:44 RBC 4.30 10^6/uL (4.1-5.3) 03/21/23 13:44 Hgb 12.3 g/dL (11.7-16.6) 03/21/23 13:44 Hct 38.2 % (42.0-52.0) L 03/21/23 13:44 MCV 88.8 fl (80-94) 03/21/23 13:44 MCH 28.6 pg (28.0-34.0) 03/21/23 13:44 MCHC 32.2 g/dL (30.0-36.0) 03/21/23 13:44 RDW 13.3 % (12.1-15.1) 03/21/23 13:44 Plt Count 186 10^3/cmm (130-400) 03/21/23 13:44 MPV 10.1 fL (7.4-10.4) 03/21/23 13:44 Neut % (Auto) 68.7 % 03/21/23 13:44 Lymph % (Auto) 12.1 % 03/21/23 13:44 Atkinson % (Auto) 5.8 % 03/21/23 13:44 Eos % (Auto) 11.7 % 03/21/23 13:44 Baso % (Auto) 0.6 % 03/21/23 13:44 Neut # (Auto) 4.93 10^3/uL (1.8-7.7) 03/21/23 13:44 Lymph # (Auto) 0.9 10^3/uL (0.8-4.8) 03/21/23 13:44 Atkinson # (Auto) 0.4 10^3/uL (0.2-0.9) 03/21/23 13:44 Eos # (Auto) 0.8 10^3/uL (0.0-0.8) 03/21/23 13:44 Baso # (Auto) 0.0 10^3/uL (0.0-0.1) 03/21/23 13:44 Nucleated RBC % (auto) 0 % 03/21/23 13:44 Nucleated RBCs # 0.0 /100WBC 03/21/23 13:44 Specimen Type Arterial 03/21/23 14:03 Sample Site Radial, left 03/21/23 14:03 ABG pH 7.39 (7.35-7.45) 03/21/23 14:03 ABG pCO2 43.4 mmHg (35-45) 03/21/23 14:03 ABG pO2 64.7 mmHg (80.0-100.0) L 03/21/23 14:03 ABG HCO3 26.2 mmol/L (22-26) H 03/21/23 14:03 ABG O2 Saturation 94.9 03/21/23 14:03 ABG Base Excess 0.9 mmol/L (-2.0-2.0) 03/21/23 14:03 Tarun Test Pos 03/21/23 14:03 A-a O2 Gradient 4.1 mmHg (5-10) L 03/21/23 14:03 Hematocrit 38.0 % (42-52) L 03/21/23 14:03 Hgb O2 Saturation 92.9 % (95-100) L 03/21/23 14:03 Carboxyhemoglobin 1.8 %THgb (0.4-20.1) 03/21/23 14:03 Methemoglobin 0.3 % (0.4-1.5) L 03/21/23 14:03 Total Hemoglobin 12.4 g/dL (14-18) L 03/21/23 14:03 Sodium 141.0 mmol/L (131-143) 03/21/23 14:03 Potassium 3.8 mmol/L (3.5-5.0) 03/21/23 14:03 Glucose 125.0 mg/dL (70-115) H 03/21/23 14:03 Ionized Calcium 1.2 mmol/L (1.1-1.4) 03/21/23 14:03 O2 Delivery Device Room air 03/21/23 14:03 FiO2 21.0 % 03/21/23 14:03 Command Center Officer ID glc 03/21/23 14:03 Sodium 143 mmol/L (136-145) 03/21/23 13:44 Potassium 4.2 mmol/L (3.5-5.1) 03/21/23 13:44 Chloride 106 mmol/L (98-107) 03/21/23 13:44 Carbon Dioxide 28 mmol/L (22-29) 03/21/23 13:44 Anion Gap 13.2 (5-19) 03/21/23 13:44 BUN 11 mg/dL (8-23) 03/21/23 13:44 Creatinine 0.8 mg/dL (0.7-1.2) 03/21/23 13:44 GFR Calculation 95.8 mL/min (90-130) 03/21/23 13:44 Glucose 141 mg/dL (65-115) H 03/21/23 13:44 Calculated Osmolality 298 mOsm/kg (285-295) H 03/21/23 13:44 Calcium 8.3 mg/dL (8.5-10.5) L 03/21/23 13:44 Total Bilirubin 0.3 mg/dL (0.15-1.2) 03/21/23 13:44 AST 17 U/L (0-40) 03/21/23 13:44 ALT 18 U/L (0-41) 03/21/23 13:44 Alkaline Phosphatase 62 U/L (40-130) 03/21/23 13:44 Troponin T Baseline 19 ng/L (0-15) H 03/21/23 13:44 Troponin T 120 Minute 17.39 ng/L (0-15) H 03/21/23 15:58 Delta Troponin T -1.61 ABS# (0-10) L 03/21/23 15:58 NT-Pro-B Natriuret Pep 273 pg/mL (0-125) H 03/21/23 13:44 Total Protein 5.8 g/dL (6.6-8.7) L 03/21/23 13:44 Albumin 4.0 g/dL (3.5-5.2) 03/21/23 13:44 Globulin 1.8 g/dL (1.3-4.6) 03/21/23 13:44 Discharge Plan Discharge Patient Disposition: Home Clinical Impression: Acute exacerbation of chronic obstructive airways disease Condition: Stable Prescriptions: New ipratropium-albuterol 0.5 mg-3 mg(2.5 mg base)/3 mL solution for nebulization 3 ml inhalation Q4H PRN (Reason: shortness of breath or wheezing) Qty: 90 0RF prednisone 20 mg tablet 20 mg PO TID Qty: 15 0RF Rx Instructions: 1 p.o. 3 times daily x3 days, 1 p.o. twice daily x2 days, 1 p.o. daily x2 days No Action buspirone 15 mg tablet 15 mg PO TID ipratropium-albuterol 0.5 mg-3 mg(2.5 mg base)/3 mL solution for nebulization 3 ml inhalation Q6H PRN (Reason: Shortness Of Breath) levalbuterol tartrate 45 mcg/actuation HFA aerosol inhaler 2 inh inhalation Q6H PRN (Reason: shortness of breath or wheezing) guaifenesin 400 mg tablet 400 mg PO Q4H PRN (Reason: congestion) rivaroxaban 20 mg tablet 20 mg PO QAM Rx Instructions: must administer with evening meal sertraline 100 mg tablet 200 mg PO QAM atorvastatin 40 mg tablet 20 mg PO QAM Breabditri Aerosphere 160-9-4.8 mcg/actuation HFA aerosol inhaler 2 inh inhalation BID Qty: 10.7 3RF clotrimazole-betamethasone 1-0.05 % Cream 1 applic TOPICAL PRN PRN (Reason: Wound Care) bismuth subsalicylate 525 mg/15 mL Suspension 525 mg PO Q30M PRN (Reason: Nausea) Rx Instructions: do not exceed 8 doses in a 24 hour period prednisone 20 mg tablet 20 mg PO TID Qty: 15 0RF Rx Instructions: 1 p.o. 3 times daily x3 days, 1 p.o. twice daily x2 days, 1 p.o. daily x2 days albuterol sulfate 90 mcg/actuation HFA aerosol inhaler 2 inh INHALATION Q4H PRN (Reason: shortness of breath or wheezing) Qty: 18 0RF Discharge Orders: Discharge ED (Routine); Ordered 03/21/23 Ordered By: Sandro Gale Referrals: Dilshad Anderson DO [Primary Care Provider] - Discharge Diet: Usual diet Discharge Activity: Increase activity as tolerated Patient Instructions: COPD (Chronic Obstructive Pulmonary Disease) (ED), Opioid Safety, Pain Management Coding Level of Care Code ED Sales Representative [employer] for Portia Mcneal
--- NOTE | 2023-03-21 13:55 | ECG_ITS ---
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 Measurements Intervals [place] Rate: 79 P: 52 [place]: 147 QRS: 49 QRSD: 102 T: 59 QT: 360 QTc: 413 Interpretive Statements SINUS RHYTHM Compared to ECG 08/16/2022 04:55:29 Myocardial infarct finding no longer present Electronically Signed On 03-21-2023 18:24:32 CDT by Nino Shahid M.D. [id number]
[2023-03-21] MEDS: ipratropium-albuterol 3 mL Neb INHALATION ×2 (13:56→16:18)
[2023-03-21] MEDS: LORazepam 2 mg Tablet PO (14:04)
[2023-03-21] MEDS: methylPREDNISolone sod succ 125 MG in water for injection-sterile 2 ML 24 MG IVP (14:04)
[2023-03-21 14:17] LABS: ABG PCO2 43.4 mmHg (35-45); ABG PH Result 7.39 (7.35-7.45); Alveolar-Arterial Oxygen Gradi 4.1 mmHg (5-10); Base Excess ABG 0.9 mmol/L (-2.0-2.0); Blood Gas Allen Test Pos; Blood Gas Operator Identificat glc; Blood Gas Sample Site Radial, left; Blood Gas Sample Type Arterial; Carboxyhemoglobin 1.8 %THgb (0.4-20.1); HCO3 ABG 26.2 mmol/L (22-26); HGB O2 Sat 92.9 % (95-100); Ionized Calcium Level - ABG 1.2 mmol/L (1.1-1.4); Methemoglobin 0.3 % (0.4-1.5); Oxygen Device ROOM AIR; Oxygen Saturation ABG 94.9; PO2 ABG 64.7 mmHg (80.0-100.0); Potassium Level - ABG 3.8 mmol/L (3.5-5.0); Total Hemoglobin 12.4 g/dL (14-18)
[2023-03-21 14:24] LABS: Alanine Aminotransferase 18 U/L (0-41); Alkaline Phosphatase 62 U/L (40-130); Anion Gap 13.2 (5-19); Aspartate Amino Transferase 17 U/L (0-40); Blood Urea Nitrogen 11 mg/dL (8-23); Calcium 8.3 mg/dL (8.5-10.5); Carbon Dioxide 28 mmol/L (22-29); Chloride 106 mmol/L (98-107); Globulin 1.8 g/dL (1.3-4.6); Glomerular Filtration Rate 95.8 mL/min (90-130); Glucose 141 mg/dL (65-115); NT Pro B Type Natriuretic Pept 273 pg/mL (0-125); Osmolality Calculated 298 mOsm/kg (285-295); Potassium 4.2 mmol/L (3.5-5.1); Sodium 143 mmol/L (136-145); Total Bilirubin 0.3 mg/dL (0.15-1.2); Total Protein 5.8 g/dL (6.6-8.7)
[2023-03-21 14:49] LABS: Troponin(5th) Baseline 19 ng/L (0-15)
--- NOTE | 2023-03-21 15:42 | ECG_ITS ---
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 Measurements Intervals [place] Rate: 77 P: 68 MT: 161 QRS: 40 QRSD: 95 T: 51 QT: 368 QTc: 419 Interpretive Statements SINUS RHYTHM Compared to ECG 03/21/2023 14:00:42 No significant changes Electronically Signed On 03-21-2023 18:26:38 CDT by Nino Shahid M.D. [id number]
[2023-03-21 16:49] LABS: Troponin 5 2HR 17.39 ng/L (0-15)
[2023-03-21 16:53] LABS: Troponin 5 2HR Delta -1.61 ABS# (0-10)
== END 2023-03-21 17:40 | disposition home or self-care (01) ==
PROVIDERS: Emergency Provider Family Medicine; PCP Emergency Medicine Emergency Medical Services
DX: J44.1 Chronic obstructive pulmonary disease with (acute) exacerbation (principal)
CPT/HCPCS: 36600; 71045; 80051; 80053; 82330; 82805; 83880; 84484; 85025; 93005; 94640; 96374; 99285; J2930

== ENCOUNTER 2023-03-22 11:21 | Emergency (ER) | payer OTHER, SELFPAY ==
[2023-03-22 11:38] VITALS: BP 101/67; PULSE 93; RESP 22; TEMP 37; O2SAT 94; BMI 26.6
--- NOTE | 2023-03-22 12:01 | PC.PHAR ---
Addendum entered by Sherin Dick 03/22/23 12:52: pt states he takes the medications entered [facility] Original Note: [facility]ed [facility]
--- NOTE | 2023-03-22 12:33 | ED.C_ITS ---
HPI - Psych General: Chief Complaint: Psychiatric Symptoms Stated Complaint: MHE Time Seen by Provider: 03/22/23 11:32 Source: patient Mode of arrival: ambulatory History of Present Illness: 67 year-old male presents emergency room complaining of anxiety issues. He has a history of COPD he frequently gets anxious. He was seen last night in the emergency room and exacerbation of COPD he was given Ativan and treated for his acute COPD exacerbation his breathing feels better he still feels very anxious is difficult time sleeping. He was started on prednisone which likely is also contributing to this. He tells me in the past he was on palliative care [place] treated with diazepam lorazepam and alprazolam along with scheduled doses of morphine. He states since he [place] the [place] have taken him off these medication has been off for several months now. He is on buspirone and sertraline at max doses states she still has anxiety issues. He states things like benzodiazepine such as lorazepam and alprazolam have helped in the past. He denied homicidal or suicidal ideation to me. In the nurses triage note HEENT there is a comment about taking a handful of pills so he could quit suffering. When I asked him about that in terms of his suicidal thought or gesture he states he did not intend to commit suicide that he had hoped that by just taking a handful of antianxiety medicines his anxiety would stop and he would be able to rest. He adamantly denies any suicidal homicidal ideation. Onset (ago): week(s) Duration: intermittent History of same: Yes Relieving factors: medication Exacerbating factors: none Associated symptoms: Reports depression; Deny auditory hallucinations, visual hallucinations, delusions, homicidal ideation or suicidal ideation Treatments prior to arrival: none Review of Systems Psych: Reports: depression; Denies: visual hallucinations, auditory hallucinations, suicidal ideation or homicidal ideation [facility] ED PFSH: Medical History Acute exacerbation of chronic obstructive airways disease Anxiety related to PTSD, can be severe, takes benzodiazepines as needed and buspar scheduled Chronic anticoagulation xarelto, for history of PE in 2019 COPD (chronic obstructive pulmonary disease) Erectile dysfunction Exertional dyspnea Fracture of rib (~07/2022) right 10th rib Hearing loss History of cardiovascular stress test 04/2022 false positive History of PFTs 06/2022 Severe airflow obstruction, no post bronchodilator study, lung volumes not measured, moderate gas transfer defect. Consistent with obstructive ventilatory disease. History of smoking 70-100 pack years, quit ~03/2022 Hyperlipidemia Malignant neoplasm of prostate s/p TURP BETH on CPAP Osteoarthritis PTSD (post-traumatic stress disorder) Pulmonary embolism Unprovoked, 2019, on chronic anticoagulation with rivaroxaban, CTA chest 07/2022 with no focal PE identified Surgical History History of appendectomy History of cardiac catheterization 05/2022 [place], no obstructive CAD History of cholecystectomy 2006 History of colonoscopy 2013 no abnormalities History of inguinal hernia repair right History of repair of congenital cleft palate History of thoracotomy trauma from left rib fracture while on anticoagulation History of tonsillectomy History of transurethral resection of prostate 2014, for prostate cancer History of vasectomy with subsequent failed reversal Family History Father Stroke Dementia CAD (coronary artery disease) Other Anxiety Social History Smoking and tobacco status: former smoker (1 cig/day) Quit status (tobacco): has quit using tobacco Former quit date comment: 03/2022 Alcohol intake: current Alcohol intake frequency: few times a week Alcohol type: hard liquor Substance/Drug Use: current Substance/Drug use frequency: Special occassions/opportunity only Household members: spouse Marital status: service: Yes status details: 15 years [employer], 5 years [employer], 100% service connected Physical Exam Psych: THOUGHT CONTENT: No delusions Course Vital Signs: Vital signs: Vital Signs Temperature 98.6 F 03/22/23 11:38 Pulse Rate 92 03/22/23 12:57 Respiratory Rate 18 03/22/23 12:57 Blood Pressure 108/71 03/22/23 12:57 Pulse Oximetry 93 03/22/23 12:57 Oxygen Delivery Me thod Room Air 03/22/23 11:38 MDM - Psych Medical Decision Making Patient adamantly denies suicidal or homicidal ideation. He states the comment that he made in regards to nurses regarding taking a handful of medications was in reference to taking medications such as the Xanax he had leftover to help treat his anxiety. He reinforced that he had no suicidal intention when asked in several variations. He is requesting Xanax diazepam or lorazepam for his anxiety. Discussed and we generally do not prescribe those on a long-term bas is. Called and talked to Dr. Bell and discussed the case with him he recommends starting him on Neurontin 300 mg twice daily and [facility]. Patient tells me he does see his psychiatrist recommend he follows up with that psychiatry team to the [place] for further medication adjustments. Medical Records I reviewed the patient's medical records. Lab Data I reviewed the patient's lab results. Discharge Plan Discharge Patient Disposition: Home Clinical Impression: COPD (chronic obstructive pulmonary disease), Anxiety Condition: Stable Prescriptions: New gabapentin 300 mg capsule 300 mg PO BID Qty: 30 0RF No Action buspirone 15 mg tablet 30 mg PO TID guaifenesin 400 mg tablet 400 mg PO Q4H PRN (Reason: congestion) rivaroxaban 20 mg tablet 20 mg PO QAM Rx Instructions: must administer with evening meal sertraline 100 mg tablet 200 mg PO QAM atorvastatin 40 mg tablet 20 mg PO QAM Breztri Aerosphere 160-9-4.8 mcg/actuation HFA aerosol inhaler 2 inh inhalation BID Qty: 10.7 3RF clotrimazole-betamethasone 1-0.05 % Cream 1 applic TOPICAL PRN PRN (Reason: Wound Care) bismuth subsalicylate 525 mg/15 mL Suspension 525 mg PO Q4H PRN (Reason: Nausea) Rx Instructions: do not exceed 8 doses in a 24 hour period Tylenol Ex Str Rapid Release 500 mg Tablet 1,000 mg PO Q6H PRN (Reason: Pain) levalbuterol HCl 1.25 mg/3 mL Solution For Nebulization 1.25 mg INHALATION .UP TO 6 TIMES A DAY ipratropium-albuterol 0.5 mg-3 mg(2.5 mg base)/3 mL solution for nebulization 3 ml inhalation QAM prednisone 20 mg tablet See Rx Instructions .ROUTE .COMPLEX Rx Instructions: 1 p.o. 3 times daily x3 days, 1 p.o. twice daily x2 days, 1 p.o. daily x2 days albuterol sulfate 90 mcg/actuation HFA aerosol inhaler 2 inh INHALATION Q6H PRN (Reason: shortness of breath or wheezing) Discharge Orders: Discharge ED (Routine); Ordered 03/22/23 Ordered By: Sandro Gale Referrals: Dilshad Anderson DO [Primary Care Provider] - Discharge Diet: Usual diet Discharge Activity: Increase activity as tolerated Patient Instructions: Opioid Safety, Pain Management Activity Restrictions/Additional Instructions: Continue your other medications as start gabapentin 300 mg twice daily. Follow- up with your primary care doctor within the next week. Coding Level of Care Code ED Certified Rehabilitation Counselor for Portia Mcneal
[2023-03-22 12:56] VITALS: BP 108/71; PULSE 92; RESP 18; O2SAT 93
[2023-03-22 12:57] VITALS: BP 108/71; PULSE 92; RESP 18; O2SAT 93
== END 2023-03-22 12:58 | disposition home or self-care (01) ==
PROVIDERS: Emergency Provider Family Medicine; PCP Emergency Medicine Emergency Medical Services
DX: F41.9 Anxiety disorder, unspecified (principal); J44.9 Chronic obstructive pulmonary disease, unspecified; Z87.891 Personal history of nicotine dependence; E78.5 Hyperlipidemia, unspecified; Z85.46 Personal history of malignant neoplasm of prostate
CPT/HCPCS: 99283

== ENCOUNTER 2023-03-22 13:48 | Observation (INO) | payer OTHER, SELFPAY ==
[2023-03-22] VITALS (9 sets, daily range): BP systolic 97–132; BP diastolic 57–80; PULSE 89–104; RESP 18–22; TEMP 37.2–37.4; O2SAT 88–96; BMI 29.6
[2023-03-22] MEDS: ipratropium-albuterol 3 mL Neb INHALATION ×2 (14:30→19:49)
[2023-03-22] MEDS: LORazepam 2 mg/mL INJ 1 mL IVP (14:34)
[2023-03-22 14:46] LABS: Basophils % 0.4 %; Eosinophils # 0.3 10^3/uL (0.0-0.8); Eosinophils % 3.7 %; Hematocrit 39.5 % (42.0-52.0); Hemoglobin 12.8 g/dL (11.7-16.6); Lymphocytes # 0.2 10^3/uL (0.8-4.8); Lymphocytes % 2.1 %; Mean Corpuscular HGB Conc 32.4 g/dL (30.0-36.0); Mean Corpuscular Volume 89.4 fl (80-94); Mean Platelet Volume 10.5 fL (7.4-10.4); Monocytes # 0.5 10^3/uL (0.2-0.9); Monocytes % 6.1 %; Neutrophils # 7.44 10^3/uL (1.8-7.7); Neutrophils % 86.8 %; Nucleated Red Blood Cells % 0 %; Platelet Count 160 10^3/cmm (130-400); Red Blood Count 4.42 10^6/uL (4.1-5.3); Red Cell Distribution Width 13.2 % (12.1-15.1); White Blood Count 8.6 10^3/uL (4.0-10.0)
--- NOTE | 2023-03-22 14:48 | PC.PHAR ---
Addendum entered by Sherin Dick 03/22/23 16:17: still waiting for [facility] med [facility] Addendum entered by Sherin Dick 03/22/23 15:52: medications entered are from what the pt states he takes and what med bottles were brought in -rx bottle dated 03/16/23 for medrol dose sendy had not been opened-prednisone 20mg written 03/21/23 is on hold at [facility] waiting [facility] approval-pts states they havent filled gabapentin 300mg bid written 03/22/[address] to explain why the pt needs to take gabapentin-lipitor 20mg daily bottle wasnt with pts other meds ext [facility] by [facility] 03/19/23 90d/s pts states the pt may have had some from before he was taking-notes are made in the pharmacy comments Original Note: faxed [facility]-pts states will bring med bottles in ~~15:30
--- NOTE | 2023-03-22 15:01 | W.ED.PSYCHS ---
HPI - Psych General: Chief Complaint: Psychiatric Symptoms Stated Complaint: MHE Time Seen by Provider: 03/22/23 13:52 History of Present Illness: 67-year-old male with a history of anxiety and COPD presents emergency room with the complaint of suicidal ideation. Patient was initially seen and evaluated few hours ago with anxiety and COPD exacerbation. Upon getting home patient made a vague complaint to his about possible suicidal ideation. He was brought back to the emergency room by his for further evaluation and treatment. Upon present emergency room, patient voices suicidal ideation but denies any concrete plan. No hallucination, no fever, chills, headache or blurry vision. Patient reveals shortness of breath with wheezing but has any chest pain. Cough, coughing up blood or vomiting blood. Associated symptoms: Reports suicidal ideation; Deny auditory hallucinations, visual hallucinations, depression or homicidal ideation Review of Systems General: Reports: 10 or more systems reviewed and unremarkable except in HPI and below Const: Denies: fever(s), chills, body aches, change in weight or fatigue Resp: Reports: dyspnea and wheezing; Denies: productive cough, non-productive cough, stridor, pain on inspiration or change in phlegm color Psych: Reports: anxiety and suicidal ideation; Denies: depression, paranoia, memory loss, difficulty concentrating, visual hallucinations, auditory hallucinations, tactile hallucinations or homicidal ideation [facility] PFSH: Medical History (Updated 03/22/23 @ 20:47 by Earle Gibbs MD) Acute exacerbation of chronic obstructive airways disease Anxiety related to PTSD, can be severe, takes benzodiazepines as needed and buspar scheduled Chronic anticoagulation xarelto, for history of PE in 2019 COPD (chronic obstructive pulmonary disease) Erectile dysfunction Exertional dyspnea Fracture of rib (~07/2022) right 10th rib Hearing loss History of cardiovascular stress test 04/2022 false positive History of PFTs 06/2022 Severe airflow obstruction, no post bronchodilator study, lung volumes not measured, moderate gas transfer defect. Consistent with obstructive ventilatory disease. History of smoking 70-100 pack years, quit ~03/2022 Hyperlipidemia Malignant neoplasm of prostate s/p TURP BETH on CPAP Osteoarthritis PTSD (post-traumatic stress disorder) Pulmonary embolism Unprovoked, 2019, on chronic anticoagulation with rivaroxaban, CTA chest 07/2022 with no focal PE identified Surgical History History of appendectomy History of cardiac catheterization 05/2022 [place], no obstructive CAD History of cholecystectomy 2006 History of colonoscopy 2013 no abnormalities History of inguinal hernia repair right History of repair of congenital cleft palate History of thoracotomy trauma from left rib fracture while on anticoagulation History of tonsillectomy History of transurethral resection of prostate 2014, for prostate cancer History of vasectomy with subsequent failed reversal Family History Father Stroke Dementia CAD (coronary artery disease) Other Anxiety Social History Smoking and tobacco status: former smoker (1 cig/day) Quit status (tobacco): has quit using tobacco Former quit date comment: 03/2022 Alcohol intake: current Alcohol intake frequency: few times a week Alcohol type: hard liquor Substance/Drug Use: current Substance/Drug use frequency: Special occassions/opportunity only Household members: spouse Marital status: service: Yes status details: 15 years [employer], 5 years [employer], 100% service connected Physical Exam Const: COMMON NORMALS: healthy appearing and alert GENERAL APPEARANCE: well kempt Neck/C-Spine: COMMON NORMALS: no JVD Chest: COMMONS NORMALS: normal inspection of the chest, normal palpation of entire chest wall, normal inspection of the breasts and normal palpation of the breasts Breast/axilla inspection: Yes normal inspection of the breasts BREAST/AXILLA PALPATION: Yes normal palpation of the breasts Resp: COMMON NORMALS: percussion normal EFFORT & INSPECTION: Yes labored, No uses accessory muscles, No paradoxical thoraco-abdominal movements, Yes audible wheezes, No tracheal deviation, No tripod positioning and No prolonged expiratory phase AUSCULTATION: wheezes PERCUSSION: percussion normal Cardio: COMMON NORMALS: no JVD, regular rate, regular rhythm, S1 normal heart sound present, S2 normal heart sound present, No gallops present (Cardio), No clicks present (Cardio), No murmurs present (Cardio), No rub (Cardio) and Peripheral pulses 2+ throughout RATE: regular rate RHYTHM: regular rhythm HEART SOUNDS: S1 normal heart sound present and S2 normal heart sound present PERIPHERAL PULSES: Peripheral pulses 2+ throughout Extremity: GENERAL: Yes normal exam except as noted Neuro: SENSORIUM/ORIENTATION: Yes alert Psych: APPEARANCE: Yes well kempt ATTITUDE: No paranoid, No uncooperative, No agitated, No aggressive and No hostile MOOD & AFFECT: Yes depressed mood, Yes anxious, No irritable, No tearful, No fearful and No Labile affect present INSIGHT: Fair insight present (Psych) Course Reevaluation(s): Reevaluation #1: Upon assessment patient appears to be comfortable with current treatment. Consultations: Consultation #1: Evert patient with Dr Bell. 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 Consultation #2: Discussed patient with Dr. Gibbs the hospitalist. Vital Signs: Vital signs: Vital Signs Temperature 97.9 F 03/24/23 00:00 Pulse Rate 74 03/24/23 00:00 Respiratory Rate 17 03/24/23 00:00 Blood Pressure 110/64 03/24/23 00:00 Pulse Oximetry 95 03/24/23 00:00 Oxygen Delivery Me thod Room Air 03/24/23 00:00 Oxygen Flow Rate 2 03/23/23 15:17 MDM - Psych Medical Decision Making Patient made comfortable emergency room. Patient was given DuoNebs and steroids. He was given Ativan. I discussed disposition plan with . Spoke with the hospitalist and psychiatrist for admission to the hospital. Differential Diagnosis Likely acute psychosis, chronic schizophrenia, suicidal ideation, bipolar disorder, depression, drug-induced psychotic disorder and acute anxiety Lab Data 03/22/23 14:39 03/22/23 14:39 Laboratory Results WBC 8.6 10^3/uL (4.0-10.0) 03/22/23 14:39 RBC 4.42 10^6/uL (4.1-5.3) 03/22/23 14:39 Hgb 12.8 g/dL (11.7-16.6) 03/22/23 14:39 Hct 39.5 % (42.0-52.0) L 03/22/23 14:39 MCV 89.4 fl (80-94) 03/22/23 14:39 MCH 29.0 pg (28.0-34.0) 03/22/23 14:39 MCHC 32.4 g/dL (30.0-36.0) 03/22/23 14:39 RDW 13.2 % (12.1-15.1) 03/22/23 14:39 Plt Count 160 10^3/cmm (130-400) 03/22/23 14:39 MPV 10.5 fL (7.4-10.4) H 03/22/23 14:39 Neut % (Auto) 86.8 % 03/22/23 14:39 Lymph % (Auto) 2.1 % 03/22/23 14:39 [place] % (Auto) 6.1 % 03/22/23 14:39 Eos % (Auto) 3.7 % 03/22/23 14:39 Baso % (Auto) 0.4 % 03/22/23 14:39 Neut # (Auto) 7.44 10^3/uL (1.8-7.7) 03/22/23 14:39 Lymph # (Auto) 0.2 10^3/uL (0.8-4.8) L 03/22/23 14:39 [place] # (Auto) 0.5 10^3/uL (0.2-0.9) 03/22/23 14:39 Eos # (Auto) 0.3 10^3/uL (0.0-0.8) 03/22/23 14:39 Baso # (Auto) 0.0 10^3/uL (0.0-0.1) 03/22/23 14:39 Nucleated RBC % (auto) 0 % 03/22/23 14:39 Nucleated RBCs # 0.0 /100WBC 03/22/23 14:39 Sodium 140 mmol/L (136-145) 03/22/23 14:39 Potassium 4.1 mmol/L (3.5-5.1) 03/22/23 14:39 Chloride 106 mmol/L (98-107) 03/22/23 14:39 Carbon Dioxide 24 mmol/L (22-29) 03/22/23 14:39 Anion Gap 14.1 (5-19) 03/22/23 14:39 BUN 17 mg/dL (8-23) 03/22/23 14:39 Creatinine 0.9 mg/dL (0.7-1.2) 03/22/23 14:39 GFR Calculation 83.7 mL/min (90-130) L 03/22/23 14:39 Glucose 99 mg/dL (65-115) 03/22/23 14:39 Calculated Osmolality 292 mOsm/kg (285-295) 03/22/23 14:39 Calcium 8.2 mg/dL (8.5-10.5) L 03/22/23 14:39 Total Bilirubin 0.3 mg/dL (0.15-1.2) 03/22/23 14:39 AST 18 U/L (0-40) 03/22/23 14:39 ALT 17 U/L (0-41) 03/22/23 14:39 Alkaline Phosphatase 62 U/L (40-130) 03/22/23 14:39 Total Protein 5.9 g/dL (6.6-8.7) L 03/22/23 14:39 Albumin 3.9 g/dL (3.5-5.2) 03/22/23 14:39 Globulin 2.0 g/dL (1.3-4.6) 03/22/23 14:39 Salicylates < 0.3 mg/dL (3-10) L 03/22/23 14:39 Acetaminophen < 5.0 ug/mL (10-30) L 03/22/23 14:39 Ethyl Alcohol < 10 mg/dL (0-10) 03/22/23 14:39 Discharge Plan Discharge Patient Disposition: Placed in Observation Admit Provider: Earle Gibbs Clinical Impression: COPD (chronic obstructive pulmonary disease), Anxiety, Suicidal ideation Coding Level of Care Code ED [facility] for Portia Mcneal
[2023-03-22 15:03] LABS: Alanine Aminotransferase 17 U/L (0-41); Albumin Level 3.9 g/dL (3.5-5.2); Alkaline Phosphatase 62 U/L (40-130); Anion Gap 14.1 (5-19); Aspartate Amino Transferase 18 U/L (0-40); Blood Urea Nitrogen 17 mg/dL (8-23); Calcium 8.2 mg/dL (8.5-10.5); Carbon Dioxide 24 mmol/L (22-29); Chloride 106 mmol/L (98-107); Glomerular Filtration Rate 83.7 mL/min (90-130); Glucose 99 mg/dL (65-115); Osmolality Calculated 292 mOsm/kg (285-295); Potassium 4.1 mmol/L (3.5-5.1); Sodium 140 mmol/L (136-145); Total Bilirubin 0.3 mg/dL (0.15-1.2); Total Protein 5.9 g/dL (6.6-8.7)
[2023-03-22 15:07] LABS: Acetaminophen < 5.0 ug/mL (10-30); Alcohol Level < 10 mg/dL (0-10); Salicylate < 0.3 mg/dL (3-10)
--- NOTE | 2023-03-22 17:27 | P.HP_ITS ---
Providers/Chief Complaint Admitting Physician: Earle Gibbs MD Primary Care Provider: Dilshad Anderson DO Chief Complaint: MHE History of Present Illness Jaswant Macdonald is a 67 year old male with a past medical history significant for COPD, anxiety, tobacco use disorder in remission, hyperlipidemia, PTSD, pulmonary embolism, and prostate cancer who presents emergency department with shortness of breath. Patient reports symptoms started 2 to 3 days ago. He endorses severe wheezing, shortness of breath, and nonproductive cough. He reports exertion worsens his symptoms. He also endorses associated symptoms of severe anxiety. Patient was previously on multiple benzodiazepines before moving to [place]. He reportedly was taken off [facility] these by [facility]. Since that time he reports he has had severe anxiety and breathing difficulties. Of note, patient has had multiple recent ED visits for both anxiety and COPD exacerbation intermix. Symptoms are worsening for which patient presents for observation admission. Prior to my evaluation, patient reportedly made statements concerning for suicide ideation. Psychiatry has been consulted. Review of Systems Narrative: A complete review of systems was obtained and is negative except as stated in HPI. Medications/Allergies Home Medications Medication Instructions Recorded Confirmed Last Taken Type atorvastatin 40 mg tablet 20 mg PO QAM 06/03/22 03/22/23 03/22/23 History guaifenesin 400 mg tablet 400 mg PO Q4H PRN congestion 06/03/22 03/22/23 Unknown History rivaroxaban 20 mg tablet 20 mg PO QAM 06/03/22 03/22/23 03/22/23 History sertraline 100 mg tablet 200 mg PO QAM 06/03/22 03/22/23 03/22/23 History budesonide 160 mcg-glycopyr 9 2 inh inhalation BID #10.7 grams 06/15/22 03/22/23 03/22/23 Rx mcg-formot 4.8 mcg/actuation HFA inhaler (Breztri Aerosphere) bismuth subsalicylate 525 mg/15 mL 525 mg PO Q4H PRN Nausea 08/16/22 03/22/23 Unknown History oral suspension clotrimazole-betamethasone 1 1 applic topical PRN PRN Wound Care 08/16/22 03/22/23 Unknown History %-0.05 % topical cream acetaminophen 500 mg tablet 1,000 mg PO Q6H PRN Pain 03/22/23 03/22/23 Unknown History albuterol sulfate 90 mcg/actuation 2 inh inhalation Q6H PRN shortness 03/22/23 03/22/23 Unknown History aerosol inhaler of breath or wheezing buspirone 10 mg tablet 20 mg PO TID 03/22/23 03/22/23 03/22/23 History gabapentin 300 mg capsule 300 mg PO BID #30 caps 03/22/23 03/22/23 Unknown Rx ipratropium 0.5 mg-albuterol 3 mg 3 ml inhalation QAM 03/22/23 03/22/23 Unknown History (2.5 mg base)/3 mL nebulization soln levalbuterol HCl 1.25 mg/3 mL 1.25 mg inhalation .UP TO 6 TIMES 03/22/23 03/22/23 Unknown History solution for nebulization A DAY methylprednisolone 4 mg tablets in See Rx Instructions .Route .COMPLEX 03/22/23 03/22/23 Unknown History a dose pack (Medrol (Otilio)) naproxen 375 mg tablet 375 mg PO BID PRN Pain 03/22/23 03/22/23 Unknown History prednisone 20 mg tablet See Rx Instructions .Route .COMPLEX 03/22/23 03/22/23 03/22/23 History prednisone 50 mg tablet See Rx Instructions .Route .COMPLEX 03/22/23 03/22/23 03/22/23 History Allergies Allergy/AdvReac Type Severity Reaction Status Date / Time Penicillins Allergy ALGY-Anaphy Verified 03/22/23 14:08 laxis PFSH Acute PFSH: Medical History (Updated 03/22/23 @ 20:47 by Earle Gibbs MD) Acute exacerbation of chronic obstructive airways disease Anxiety related to PTSD, can be severe, takes benzodiazepines as needed and buspar scheduled Chronic anticoagulation xarelto, for history of PE in 2019 COPD (chronic obstructive pulmonary disease) Erectile dysfunction Exertional dyspnea Fracture of rib (~07/2022) right 10th rib Hearing loss History of cardiovascular stress test 04/2022 false positive History of PFTs 06/2022 Severe airflow obstruction, no post bronchodilator study, lung volumes not measured, moderate gas transfer defect. Consistent with obstructive ventilatory disease. History of smoking 70-100 pack years, quit ~03/2022 Hyperlipidemia Malignant neoplasm of prostate s/p TURP BETH on CPAP Osteoarthritis PTSD (post-traumatic stress disorder) Pulmonary embolism Unprovoked, 2019, on chronic anticoagulation with rivaroxaban, CTA chest 07/2022 with no focal PE identified Surgical History History of appendectomy History of cardiac catheterization 05/2022 [place], no obstructive CAD History of cholecystectomy 2006 History of colonoscopy 2013 no abnormalities History of inguinal hernia repair right History of repair of congenital cleft palate History of thoracotomy trauma from left rib fracture while on anticoagulation History of tonsillectomy History of transurethral resection of prostate 2014, for prostate cancer History of vasectomy with subsequent failed reversal Family History Father Stroke Dementia CAD (coronary artery disease) Other Anxiety Social History Smoking and tobacco status: former smoker (1 cig/day) Quit status (tobacco): has quit using tobacco Former quit date comment: 03/2022 Alcohol intake: current Alcohol intake frequency: few times a week Alcohol type: hard liquor Substance/Drug Use: current Substance/Drug use frequency: Special occassions/opportunity only Household members: spouse Marital status: service: Yes status details: 15 years [employer], 5 years [employer], 100% service connected Vitals/I&O/Wt Last Vital Signs Temp 99.4 F 03/22/23 13:58 Pulse 98 03/22/23 15:30 Resp 18 03/22/23 15:30 BP 100/57 03/22/23 15:30 Pulse Ox 90 03/22/23 15:30 O2 Del Method Room Air 03/22/23 14:40 Weight last 48 hrs Weight 113.398 kg Physical Exam Narrative: General: Patient is awake. Anxious appearing. Pleasant. Head: Normocephalic. Atraumatic. EOM intact. Neck: No JVD. Cardiovascular: RRR. No gallops. No murmurs. Lungs: Tachypneic. Increased work of breathing with accessory muscles when speaking. Severe diffuse wheezing. No crackles or rales. Skin: No jaundice. No rashes. Abdomen: Normal bowel sounds, abdomen soft and nontender. Extremities: No cyanosis or clubbing. Musculoskeletal: No swollen or erythematous joints. Neurological: Moves all 4 extremities. No myoclonus. Data 03/22/23 14:39 03/22/23 14:39 A&P Assessment and plan (1) Acute exacerbation of chronic obstructive airways disease: Start Solu-Medrol Pulmicort DuoNebs Pulmonary toilet Supportive care (2) Anxiety: Severe anxiety is uncontrolled Previously on benzodiazepines per patient Continue sertraline Continue BuSpar Continue gabapentin Trial of Xanax (3) Suicidal ideation: Suicide precautions Dr. Bell has been consulted, appreciate recommendations (4) Osteoarthritis: Tylenol as needed (5) Pulmonary embolism: Continue home Xarelto Plan DVT [place]: Xarelto Attestations Medical Necessity Statement*: Patient presents with severe shortness of breath, found to have acute COPD exacerbation with uncontrolled anxiety with expected hospitalization not to cross 2 midnights. Coding Level of Care Code Acute Code for [facility] Fwd Diagnoses Acute exacerbation of chronic obstructive airways disease J44.1 Anxiety F41.9 Suicidal ideation R45.851 Osteoarthritis M19.90 Pulmonary embolism I26.99
[2023-03-22] MEDS: budesonide 0.5 mg/2 mL Neb 0.25 MG INHALATION (19:38)
[2023-03-22 19:53] LABS: Amphetamines Screen Urine Negative (Negative); Barbiturates Screen Urine Negative (Negative); Benzodiazepines Screen Urine Positive (Negative); Cocaine Screen Urine Negative (Negative); Opiate Screen Urine Negative (Negative); PCP Screen Urine Negative (Negative); THC Screen Urine Negative (Negative)
[2023-03-22] MEDS: BuSPIRONE 10 mg Tablet 20 MG PO (21:03)
[2023-03-23] VITALS (13 sets, daily range): BP systolic 105–133; BP diastolic 53–73; PULSE 70–97; RESP 16–20; TEMP 36.4–37.3; O2SAT 93–98
[2023-03-23] MEDS: methylPREDNISolone sod succ 40 MG in water for injection-sterile 1 ML 12 MG IVP ×2 (00:29→08:30)
[2023-03-23] MEDS: ALPRAZolam 0.5 mg Tablet PO ×3 (00:36→20:37)
[2023-03-23] MEDS: sertraline 100 mg Tablet 200 MG PO (06:14)
[2023-03-23] MEDS: rivaroxaban 10 mg Tablet 20 MG PO (06:14)
[2023-03-23] MEDS: atorvastatin 40 mg Tablet 20 MG PO (06:14)
[2023-03-23] MEDS: ipratropium-albuterol 3 mL Neb INHALATION ×4 (08:11→19:21)
[2023-03-23] MEDS: budesonide 0.5 mg/2 mL Neb 0.25 MG INHALATION ×2 (08:11→19:21)
[2023-03-23] MEDS: gabapentin 300 mg Capsule PO (08:30)
[2023-03-23] MEDS: BuSPIRONE 10 mg Tablet 20 MG PO ×3 (08:30→20:37)
--- NOTE | 2023-03-23 13:32 | PM.PN ---
Subjective Subjective: Patient reports continued shortness of breath, reports is better than yesterday. Reports ongoing anxiety, but better than prior. Discussed plan of care. He is in agreement. Remains on suicide precautions. Awaiting psychiatry evaluation. Medications: Reviewed: Yes Vitals/I&O/Wt Last Vital Signs Temp 97.7 F 03/23/23 12:00 Pulse 77 03/23/23 12:00 Resp 18 03/23/23 12:00 BP 123/53 03/23/23 12:00 Pulse Ox 97 03/23/23 12:00 O2 Del Method Nasal Cannula 03/23/23 12:00 O2 Flow Rate 2 03/23/23 08:11 03/22/23 03/23/23 03/23/23 22:59 06:59 14:59 Intake Total 481.28 / 481.28 1 / 482.28 961 / 961 Output Total 375 / 375 Balance 481.28 / 481.28 -374 / 107.28 961 / 961 Weight last 48 hrs Weight 113.398 kg Physical Exam Narrative: General: Patient is awake. Lying in bed. Head: Normocephalic. Atraumatic. EOM intact. Poor dentition. Neck: No JVD. Cardiovascular: RRR. No gallops. No murmurs. No peripheral edema. Lungs: Diffuse wheezing, no increased work of breathing, 2 L nasal cannula Skin: No jaundice. No rashes. Abdomen: Normal bowel sounds, abdomen soft and nontender. Extremities: No cyanosis or clubbing. Musculoskeletal: No swollen or erythematous joints. Neurological: Moves all 4 extremities. No myoclonus. Data 03/22/23 14:39 03/22/23 14:39 A&P Assessment and plan (1) Acute exacerbation of chronic obstructive airways disease: Rotate prednisone Pulmicort DuoNebs Pulmonary toilet Supportive care (2) Anxiety: Severe anxiety is uncontrolled Previously on benzodiazepines per patient Continue sertraline Continue BuSpar Continue gabapentin Trial of Xanax Psychiatry evaluation is pending (3) Suicidal ideation: Suicide precautions Dr. Bell has been consulted, appreciate recommendations (4) Osteoarthritis: Tylenol as needed (5) Pulmonary embolism: Continue home Xarelto Plan DVT prophylaxis: Xarelto Attestations Medical Necessity Statement*: Patient requires ongoing hospitalization for suicide ideation and COPD exacerbation. Coding Level of Care Code Acute Code for [facility] Fwd Diagnoses Acute exacerbation of chronic obstructive airways disease J44.1 Anxiety F41.9 Suicidal ideation R45.851 Osteoarthritis M19.90 Pulmonary embolism I26.99
--- NOTE | 2023-03-23 15:33 | P.NPUCON_ITS ---
Providers/Reason for Consult Consulting Physican/Specialty*: Tucker Bell MD. Psychiatry. Reason for Consult*: Evaluate anxiety and explore treatment. Also suicidal ideation. Attending Physician: Earle Gibbs MD Primary Care Provider: Dilshad Anderson, Psych Consult HPI History of Present Illness Jaswant Macdonald is a 67 year old male who presented to the emergency department with the following report: Chief Complaint: Psychiatric Symptoms Stated Complaint: MHE Time Seen by Provider: 03/22/23 11:32 Source: patient Mode of arrival: ambulatory History of Present Illness: 67 year-old male presents emergency room complaining of anxiety issues. He has a history of COPD he frequently gets anxious. He was seen last night in the emergency room and exacerbation of COPD he was given Ativan and treated for his acute COPD exacerbation his breathing feels better he still feels very anxious is difficult time sleeping. He was started on prednisone which likely is also contributing to this. He tells me in the past he was on palliative care when [place] where he was treated with diazepam lorazepam and alprazolam along with scheduled doses of morphine. He states since he moved here the [place] doctors have taken him off these medication has been off for several months now. He is on buspirone and sertraline at max doses states she still has anxiety issues. He states things like benzodiazepine such as lorazepam and alprazolam have helped in the past. He denied homicidal or suicidal ideation to me. In the nurses triage note HEENT there is a comment about taking a handful of pills so he could quit suffering. When I asked him about that in terms of his suicidal thought or gesture he states he did not intend to commit suicide that he had hoped that by just taking a handful of antianxiety medicines his anxiety would stop and he would be able to rest. He adamantly denies any suicidal homicidal ideation. Onset (ago): week(s) Duration: intermittent History of same: Yes Relieving factors: medication Exacerbating factors: none Associated symptoms: Reports depression; Deny auditory hallucinations, visual hallucinations, delusions, homicidal ideation or suicidal ideation Treatments prior to arrival: none. He was admitted to [facility] for definitive treatment of this issue. Psychiatric consult requested psych to get to the bottom of his situation. Patient presents today reporting that he is doing better but the reason why he is doing better is because they gave him some Ativan and he feels much better. He reports that this journey that brings him here started in 2016 when he was put on hospice and was given morphine and some cocktail of benzodiazepines including diazepam, lorazepam and alprazolam at different times. He reports he was put on hospice secondary to COPD and significant breathing problems reporting that his O2 sats were generally below 88 at that time. He reports that sometime in the next couple years this breathing issue essentially resolved. He reports that currently off of oxygen and the sat between 92 and 97. He reports over the next years he has been in and out of the hospital with medical concerns and he was on different benzodiazepines during that time. He reports that starting about he would be on benzodiazepines but only for short bursts. And reports that he had been off of them for several months now. He reports that he was in [place] and having significant psychosocial stressors with his family. He reports that he was not getting benzodiazepines but was not a frequentor of the Emergency department either. He reports that he moved to [place] in part due to these family conflicts and that he has been doing okay but still having anxiety and he has no explanation for why the anxiety got so overwhelming again that he has been to the hospital here a couple of times. We discussed the fact that we will need to speak with his and maybe get some records but that it was unlikely that someone would feel comfortable with the plan for anxiety for someone with COPD to be regular benzodiazepines. We agreed we would talk to his tomorrow when she gets here around 2 PM and also try to see if she has greater history on any issues that may have made his anxiety out of control as he describes it now recently. Meds Home Medications and Allergies Home Medications Medication Instructions Recorded Confirmed Last Taken Type atorvastatin 40 mg tablet 20 mg PO QAM 06/03/22 03/22/23 03/22/23 History guaifenesin 400 mg tablet 400 mg PO Q4H PRN congestion 06/03/22 03/22/23 Unknown History rivaroxaban 20 mg tablet 20 mg PO QAM 06/03/22 03/22/23 03/22/23 History sertraline 100 mg tablet 200 mg PO QAM 06/03/22 03/22/23 03/22/23 History budesonide 160 mcg-glycopyr 9 2 inh inhalation BID #10.7 grams 06/15/22 03/22/23 03/22/23 Rx mcg-formot 4.8 mcg/actuation HFA inhaler (Breztri Aerosphere) bismuth subsalicylate 525 mg/15 mL 525 mg PO Q4H PRN Nausea 08/16/22 03/22/23 Unknown History oral suspension clotrimazole-betamethasone 1 1 applic topical PRN PRN Wound Care 08/16/22 03/22/23 Unknown History %-0.05 % topical cream acetaminophen 500 mg tablet 1,000 mg PO Q6H PRN Pain 03/22/23 03/22/23 Unknown History albuterol sulfate 90 mcg/actuation 2 inh inhalation Q6H PRN shortness 03/22/23 03/22/23 Unknown History aerosol inhaler of breath or wheezing buspirone 10 mg tablet 20 mg PO TID 03/22/23 03/22/23 03/22/23 History gabapentin 300 mg capsule 300 mg PO BID #30 caps 03/22/23 03/22/23 Unknown Rx ipratropium 0.5 mg-albuterol 3 mg 3 ml inhalation QAM 03/22/23 03/22/23 Unknown History (2.5 mg base)/3 mL nebulization soln levalbuterol HCl 1.25 mg/3 mL 1.25 mg inhalation .UP TO 6 TIMES 03/22/23 03/22/23 Unknown History solution for nebulization A DAY methylprednisolone 4 mg tablets in See Rx Instructions .Route .COMPLEX 03/22/23 03/22/23 Unknown History a dose pack (Medrol (Otilio)) naproxen 375 mg tablet 375 mg PO BID PRN Pain 03/22/23 03/22/23 Unknown History prednisone 20 mg tablet See Rx Instructions .Route .COMPLEX 03/22/23 03/22/23 03/22/23 History prednisone 50 mg tablet See Rx Instructions .Route .COMPLEX 03/22/23 03/22/23 03/22/23 History Allergies Allergy/AdvReac Type Severity Reaction Status Date / Time Penicillins Allergy ALGY-Anaphy Verified 03/22/23 14:08 laxis Current Medications Current Medications Generic Name Dose Route Start Last Admin Trade Name Freq PRN Reason Stop Dose Admin Albuterol/Ipratropium 3 ml 03/22/23 20:00 03/23/23 15:17 Ipratropium-Albuterol 3 Ml Neb INHALATION 3 ml QID.RESPIRATORY KRISTIE Administration Alprazolam 0.5 mg 03/22/23 20:46 03/23/23 08:44 Alprazolam 0.5 Mg Tablet PO 0.5 mg TID PRN Administration ANXIETY Atorvastatin Calcium 20 mg 03/23/23 06:00 03/23/23 06:14 Atorvastatin 40 Mg Tablet PO 20 mg QAM KRISTIE Administration Budesonide 0.25 mg 03/22/23 20:00 03/23/23 08:11 Budesonide 0.5 Mg/2 Ml Neb INHALATION 0.25 mg BID.RESPIRATORY KRISTIE Administration Buspirone HCl 20 mg 03/22/23 21:00 03/23/23 08:30 Buspirone 10 Mg Tablet PO 20 mg TID KRISTIE Administration Gabapentin 300 mg 03/23/23 09:00 03/23/23 08:30 Gabapentin 300 Mg Capsule PO 300 mg BID KRISTIE Administration Rivaroxaban 20 mg 03/23/23 06:00 03/23/23 06:14 Rivaroxaban 10 Mg Tablet PO 20 mg QAM KRISTIE Administration Sertraline HCl 200 mg 03/23/23 06:00 03/23/23 06:14 Sertraline 100 Mg Tablet PO 200 mg QAM KRISTEI Administration PFSH NPU PFSH: Medical History (Updated 03/22/23 @ 20:47 by Earle Gibbs MD) Acute exacerbation of chronic obstructive airways disease Anxiety related to PTSD, can be severe, takes benzodiazepines as needed and buspar scheduled Chronic anticoagulation xarelto, for history of PE in 2019 COPD (chronic obstructive pulmonary disease) Erectile dysfunction Exertional dyspnea Fracture of rib (~07/2022) right 10th rib Hearing loss History of cardiovascular stress test 04/2022 false positive History of PFTs 06/2022 Severe airflow obstruction, no post bronchodilator study, lung volumes not measured, moderate gas transfer defect. Consistent with obst ructive ventilatory disease. History of smoking 70-100 pack years, quit ~03/2022 Hyperlipidemia Malignant neoplasm of prostate s/p TURP BETH on CPAP Osteoarthritis PTSD (post-traumatic stress disorder) Pulmonary embolism Unprovoked, 2019, on chronic anticoagulation with rivaroxaban, CTA chest 07/10 with no focal PE identified Surgical History History of appendectomy History of cardiac catheterization 05/2022 [place], no obstructive CAD History of cholecystectomy 2006 History of colonoscopy 2013 no abnormalities History of inguinal hernia repair right History of repair of congenital cleft palate History of thoracotomy trauma from left rib fracture while on anticoagulation History of tonsillectomy History of transurethral resection of prostate 2014, for prostate cancer History of vasectomy with subsequent failed reversal Family History Father Stroke Dementia CAD (coronary artery disease) Other Anxiety Social History Smoking and tobacco status: former smoker (1 cig/day) Quit status (tobacco): has quit using tobacco Former quit date comment: 03/2022 Alcohol intake: current Alcohol intake frequency: few times a week Alcohol t ype: hard liquor Substance/Drug Use: current Substance/Drug use frequency: Special occassions/opportunity only Household members: spouse Marital status: service: Yes status details: 15 years [employer], 5 years [employer], 100% service connected Mental Status Exam MSE Comments: Is an overweight versus obese older white male looking somewhat younger than his stated age with limited grooming and appropriate eye contact in a hospital gown. No abnormal movements except for some psychomotor agitation. Cooperative with exam in mild distress. Speech was increased rate normal volume. Mood described as anxious, affect congruent. Thought process organized. Thought content: Patient denies suicidal or homicidal ideation, no delusions reported noted, he denied any auditory we will hallucinations. Attention and concentration appeared intact and memory was mostly reliable but none were formally tested. He is alert and oriented x3. Insight, judgment and impulse control are limited. Vitals/I&O/Wt Last Vital Signs Temp 97.7 F 03/23/23 12:00 Pulse 97 03/23/23 15:25 Resp 16 03/23/23 15:17 BP 123/53 03/23/23 12:00 Pulse Ox 98 03/23/23 15:17 O2 Del Method Nasal Cannula 03/23/23 15:17 O2 Flow Rate 2 03/23/23 15:17 03/23/23 03/23/23 03/23/23 06:59 14:59 22:59 Intake Total 482.28 961 / 961 Output Total 375 / 375 Balance -374 / 107.28 961 / 961 Weight last 48 hrs Weight 113.398 kg Data NPU 03/22/23 14:39 03/22/23 14:39 A&P Assessment and plan (1) Osteoarthritis: (2) Pulmonary embolism: (3) Acute exacerbation of chronic obstructive airways disease: (4) COPD (chronic obstructive pulmonary disease): (5) Anxiety: (6) Suicidal ideation: (7) Hearing loss: Plan This is a 58-year-old white male with a significant history of COPD and other medical comorbidities who endorsed developing anxiety with his hospice for COPD but later was taken off of those benzodiazepines and only given him and intermittent sporadic fashion over the last couple years presents reporting overwhelming anxiety that he reports is better now that he is gotten some lorazepam. 1. Continue current medication. Agreed to continue the Neurontin as was discussed with Dr. Gale in the ED a couple days ago. 2. Can do some as needed Ativan while in the hospital however we need a significant history to figure out actual benzodiazepine use and given his other medical concerns is unlikely that benzodiazepine is the best solution given his medical issues, his age and the likelihood that a higher dosage would be necessary given his exposure. 3. We will continue to follow. Attestations NPU Medical Necessity Statement*: N/A. Please see primary team note for medical necessity. Coding Level of Care Code Acute Code for [facility] Fw Diagnoses Osteoarthritis M19.90 Pulmonary embolism I26.99 Acute exacerbation of chronic obstructive airways disease J44.1 COPD (chronic obstructive pulmonary disease) J44.9 Anxiety F41.9 Suicidal ideation R45.851 Hearing loss H91.90
[2023-03-24] VITALS (11 sets, daily range): BP systolic 103–148; BP diastolic 62–83; PULSE 68–102; RESP 16–18; TEMP 36.4–36.8; O2SAT 91–96
[2023-03-24] MEDS: ALPRAZolam 0.5 mg Tablet PO ×2 (04:06→09:39)
[2023-03-24] MEDS: sertraline 100 mg Tablet 200 MG PO (05:59)
[2023-03-24] MEDS: rivaroxaban 10 mg Tablet 20 MG PO (06:00)
[2023-03-24] MEDS: atorvastatin 40 mg Tablet 20 MG PO (06:00)
[2023-03-24] MEDS: ipratropium-albuterol 3 mL Neb INHALATION ×4 (07:19→20:28)
[2023-03-24] MEDS: budesonide 0.5 mg/2 mL Neb 0.25 MG INHALATION ×2 (07:19→20:28)
[2023-03-24] MEDS: predniSONE 20 mg Tablet 40 MG PO (09:39)
[2023-03-24] MEDS: BuSPIRONE 10 mg Tablet 20 MG PO ×3 (09:39→20:56)
--- NOTE | 2023-03-24 10:30 | P.NPUPN_ITS ---
Subjective NPU Subjective: Patient presented today and we spent approximately an hour talking with him and his family about his significant anxiety and his belief that benzodiazepines are the only solution. He ultimately shared that he never even tried the Neurontin that Dr. Gale had prescribed for him after speaking with me. After a long drawn out conversation he was agreeable to a trial of 200 mg p.o. twice daily of Neurontin after discussion of the risks, benefits and alternatives he understood and agreed to proceed as is documented in this note. We discussed the possibility of him moving towards discharge if he finds that the Neurontin is helpful Mental Status Exam MSE Comments: This Is an overweight versus obese older white male looking somewhat younger than his stated age with limited grooming and appropriate eye contact in a hospital gown. No abnormal movements except for some psychomotor agitation. Cooperative with exam in mild distress. Speech was increased rate normal volume. Mood described as anxious, affect congruent. Thought process organized. Thought content: Patient denies suicidal or homicidal ideation, no delusions reported noted, he denied any auditory we will hallucinations. Attention and concentration appeared intact and memory was mostly reliable but none were formally tested. He is alert and oriented x3. Insight, judgment and impulse control are limited. Vitals/I&O/Wt Last Vital Signs Temp 97.6 F 03/24/23 07:45 Pulse 78 03/24/23 07:45 Resp 17 03/24/23 07:45 BP 137/72 03/24/23 07:45 Pulse Ox 95 03/24/23 07:45 O2 Del Method Room Air 03/24/23 07:45 O2 Flow Rate 2 03/24/23 08:00 03/23/23 03/24/23 03/24/23 22:59 06:59 14:59 Intake Total 720 / 1681 240 / 1921 480 / 480 Output Total 300 / 300 Balance 420 / 1381 240 / 1621 480 / 480 Weight last 48 hrs Weight 113.398 kg Data NPU 03/22/23 14:39 03/22/23 14:39 A&P Assessment and plan (1) Osteoarthritis: (2) Pulmonary embolism: (3) Acute exacerbation of chronic obstructive airways disease: (4) COPD (chronic obstructive pulmonary disease): (5) Anxiety: (6) Suicidal ideation: (7) Hearing loss: Plan This is a 58-year-old white male with a significant history of COPD and other medical comorbidities who endorsed developing anxiety with his hospice for COPD but later was taken off of those benzodiazepines and only given him and intermittent sporadic fashion over the last couple years presents reporting overwhelming anxiety that he reports is better now that he is gotten some lorazepam. 1. Continue current medication. Agreed to continue the Neurontin as was discussed with Dr. Gale in the ED a couple days ago. 2. Can do some as needed Ativan while in the hospital however we need a significant history to figure out actual benzodiazepine use and given his other medical concerns is unlikely that benzodiazepine is the best solution given his medical issues, his age and the likelihood that a higher dosage would be necessary given his exposure. 3. We will continue to follow. 4. Start neurontin 200 mg po bid. Attestations NPU Medical Necessity Statement*: N/A. Please see primary team note for medical necessity. Coding Level of Care Code Acute Code for [facility] Fwd Diagnoses Osteoarthritis M19.90 Pulmonary embolism I26.99 Acute exacerbation of chronic obstructive airways disease J44.1 COPD (chronic obstructive pulmonary disease) J44.9 Anxiety F41.9 Suicidal ideation R45.851 Hearing loss H91.90
--- NOTE | 2023-03-24 16:52 | PM.PN ---
Subjective Subjective: Patient has reportedly been refusing gabapentin. He states he elected and it is for epilepsy. He reports continued anxiety. Reports improvement in breathing. Wants to talk further with psychiatry regarding his medications this afternoon when his is present. Medications: Reviewed: Yes Vitals/I&O/Wt Last Vital Signs Temp 98.0 F 03/24/23 12:00 Pulse 78 03/24/23 16:00 Resp 16 03/24/23 16:00 BP 127/74 03/24/23 12:00 Pulse Ox 95 03/24/23 16:00 O2 Del Method Room Air 03/24/23 16:00 O2 Flow Rate 2 03/24/23 08:00 03/24/23 03/24/23 03/24/23 06:59 14:59 22:59 Intake Total 240 / 1921 1080 / 1080 Balance 240 / 1621 1080 / 1080 Physical Exam Narrative: General: Patient is awake. Lying in bed. Verbose. Head: Normocephalic. Atraumatic. EOM intact. Poor dentition. Neck: No JVD. Cardiovascular: Normal peripheral perfusion. No edema. Lungs: Nonlabored. No accessory muscle use. Skin: No jaundice. No rashes. Abdomen: Not distended. Extremities: No cyanosis or clubbing. Musculoskeletal: No swollen or erythematous joints. Neurological: Moves all 4 extremities. No myoclonus. Data 03/22/23 14:39 03/22/23 14:39 A&P Assessment and plan (1) Anxiety: Continue sertraline Continue BuSpar Continue gabapentin Continue Xanax as needed Psychiatry is following Currently has sitter for Medically cleared for discharge, will transfer to psychiatry in the morning (2) Acute exacerbation of chronic obstructive airways disease: Continue prednisone Pulmicort DuoNebs Pulmonary toilet Supportive care (3) Suicidal ideation: Suicide precautions Management per psychiatry (4) Osteoarthritis: Tylenol as needed (5) Pulmonary embolism: Continue home Xarelto Plan DVT prophylaxis: Xarelto Attestations Medical Necessity Statement*: Patient requires ongoing hospitalization is not safe to discharge home, will transfer to psych in the a.m. Coding Level of Care Code Acute Code for [facility] Fwd Diagnoses Anxiety F41.9 Acute exacerbation of chronic obstructive airways disease J44.1 Suicidal ideation R45.851 Osteoarthritis M19.90 Pulmonary embolism I26.99
[2023-03-24] MEDS: gabapentin 100 mg Capsule 200 MG PO (20:56)
--- NOTE | 2023-03-25 00:35 | PC.NURSE ---
Around shift change patient wanted to take shower, his IV was wrapped securely but was dislodged when patient was taking the wrap off. Patient was agitated about this stating nothing has gone right since hes been here. I explained IV policy to patient, importance and safety in obtaining IV access and he refused to let me replace the IV. Phys notified.
[2023-03-25 03:06] VITALS: BP 112/68; PULSE 60; RESP 17; O2SAT 95
[2023-03-25] MEDS: rivaroxaban 10 mg Tablet 20 MG PO (05:44)
[2023-03-25] MEDS: sertraline 100 mg Tablet 200 MG PO (05:44)
[2023-03-25] MEDS: atorvastatin 40 mg Tablet 20 MG PO (05:44)
[2023-03-25] MEDS: budesonide 0.5 mg/2 mL Neb 0.25 MG INHALATION (07:31)
[2023-03-25] MEDS: ipratropium-albuterol 3 mL Neb INHALATION ×2 (07:31→11:35)
[2023-03-25 07:34] VITALS: PULSE 85; RESP 16; O2SAT 95
[2023-03-25 07:56] VITALS: BP 129/79; PULSE 74; RESP 15; TEMP 36.4; O2SAT 94
[2023-03-25] MEDS: BuSPIRONE 10 mg Tablet 20 MG PO (08:09)
[2023-03-25] MEDS: predniSONE 20 mg Tablet 40 MG PO (08:09)
[2023-03-25] MEDS: gabapentin 100 mg Capsule 200 MG PO (08:09)
[2023-03-25 11:21] VITALS: BP 132/76; PULSE 84; RESP 17; TEMP 36.6; O2SAT 96
[2023-03-25 11:38] VITALS: PULSE 78; RESP 16; O2SAT 95
--- NOTE | 2023-03-25 12:12 | PM.DCS ---
Discharge Providers Date of Admission: 03/22/23 16:18 Date of Discharge: March 25, 2023 Attending Provider at Admission: Earle Gibbs MD Attending Provider at Discharge: Earle Gibbs MD Consults: Psychiatry Primary Care Provider: Dilshad Anderson DO Diagnoses at Discharge Discharge Diagnosis (1) Osteoarthritis: Status: Inactive (2) Pulmonary embolism: Status: Inactive Permanent problem details: Unprovoked, 2019, on chronic anticoagulation with rivaroxaban, CTA chest 07/2022 with no focal PE identified (3) Acute exacerbation of chronic obstructive airways disease: Status: Resolved (4) COPD (chronic obstructive pulmonary disease): Status: Inactive (5) Anxiety: Status: Inactive (6) Suicidal ideation: Status: Resolved (7) Hearing loss: Status: Inactive Reason for Visit Reason for Visit: [facility] Hospital Course Hospital Course Jaswant Macdonald is a 67 year old male with a past medical history significant for COPD, anxiety, tobacco use disorder in remission, hyperlipidemia, PTSD, pulmonary embolism, and prostate cancer who presents emergency department with shortness of breath, found to have acute COPD exacerbation and uncontrolled anxiety. For his COPD, patient was treated with steroids and breathing treatment. Symptomatology improved. His returning return back to baseline. She did not require supplemental oxygen. Patient discharged on prednisone burst. For his uncontrolled anxiety and concern for suicide ideation, patient was placed on suicide precautions. Psychiatry was consulted and managed. He was started on gabapentin which he initially refused but then was agreeable to trying. After trying, patient reports significant improvement in his anxiety. He initially complained that he was not being transferred to the behavioral health unit due to his age, but after receiving gabapentin he stated that he did not feel he needed psychiatric care as his anxiety was well controlled. Psychiatry cleared patient for mental health discharge. Patient discharged to home with family in stable condition. He is to follow-up with his primary care provider for further care. Physical Exam Narrative: General: Patient is awake and alert. Head: Normocephalic. Atraumatic. EOM intact. Neck: No JVD. Cardiovascular: RRR. No gallops. No murmurs. Lungs: Clear to auscultation, no use of accessory muscles, no crackles or wheezes. Skin: No jaundice. No rashes. Abdomen: Normal bowel sounds, abdomen soft and nontender. Genito Urinary: Genital exam not performed since complaints not related. Rectal: Rectal exam not performed since no symptoms indicated blood loss. Extremities: No cyanosis or clubbing. Musculoskeletal: No swollen or erythematous joints. Neurological: Moves all 4 extremities. No myoclonus. No suicidal ideation. No homicideal ideation. Pleasant and calm. Discharge Data Studies Completed and Pending Laboratory Results WBC 8.6 10^3/uL (4.0-10.0) 03/22/23 14:39 RBC 4.42 10^6/uL (4.1-5.3) 03/22/23 14:39 Hgb 12.8 g/dL (11.7-16.6) 03/22/23 14:39 Hct 39.5 % (42.0-52.0) L 03/22/23 14:39 MCV 89.4 fl (80-94) 03/22/23 14:39 MCH 29.0 pg (28.0-34.0) 03/22/23 14:39 MCHC 32.4 g/dL (30.0-36.0) 03/22/23 14:39 RDW 13.2 % (12.1-15.1) 03/22/23 14:39 Plt Count 160 10^3/cmm (130-400) 03/22/23 14:39 MPV 10.5 fL (7.4-10.4) H 03/22/23 14:39 Neut % (Auto) 86.8 % 03/22/23 14:39 Lymph % (Auto) 2.1 % 03/22/23 14:39 [place] % (Auto) 6.1 % 03/22/23 14:39 Eos % (Auto) 3.7 % 03/22/23 14:39 Baso % (Auto) 0.4 % 03/22/23 14:39 Neut # (Auto) 7.44 10^3/uL (1.8-7.7) 03/22/23 14:39 Lymph # (Auto) 0.2 10^3/uL (0.8-4.8) L 03/22/23 14:39 [place] # (Auto) 0.5 10^3/uL (0.2-0.9) 03/22/23 14:39 Eos # (Auto) 0.3 10^3/uL (0.0-0.8) 03/22/23 14:39 Baso # (Auto) 0.0 10^3/uL (0.0-0.1) 03/22/23 14:39 Nucleated RBC % (auto) 0 % 03/22/23 14:39 Nucleated RBCs # 0.0 /100WBC 03/22/23 14:39 Sodium 140 mmol/L (136-145) 03/22/23 14:39 Potassium 4.1 mmol/L (3.5-5.1) 03/22/23 14:39 Chloride 106 mmol/L (98-107) 03/22/23 14:39 Carbon Dioxide 24 mmol/L (22-29) 03/22/23 14:39 Anion Gap 14.1 (5-19) 03/22/23 14:39 BUN 17 mg/dL (8-23) 03/22/23 14:39 Creatinine 0.9 mg/dL (0.7-1.2) 03/22/23 14:39 GFR Calculation 83.7 mL/min (90-130) L 03/22/23 14:39 Glucose 99 mg/dL (65-115) 03/22/23 14:39 Calculated Osmolality 292 mOsm/kg (285-295) 03/22/23 14:39 Calcium 8.2 mg/dL (8.5-10.5) L 03/22/23 14:39 Total Bilirubin 0.3 mg/dL (0.15-1.2) 03/22/23 14:39 AST 18 U/L (0-40) 03/22/23 14:39 ALT 17 U/L (0-41) 03/22/23 14:39 Alkaline Phosphatase 62 U/L (40-130) 03/22/23 14:39 Total Protein 5.9 g/dL (6.6-8.7) L 03/22/23 14:39 Albumin 3.9 g/dL (3.5-5.2) 03/22/23 14:39 Globulin 2.0 g/dL (1.3-4.6) 03/22/23 14:39 Salicylates < 0.3 mg/dL (3-10) L 03/22/23 14:39 Urine Opiates Screen Negative ng/mL (Negative) 03/22/23 19:20 Acetaminophen < 5.0 ug/mL (10-30) L 03/22/23 14:39 Ur Barbiturates Screen Negative ng/mL (Negative) 03/22/23 19:20 Ur Phencyclidine Scrn Negative ng/mL (Negative) 03/22/23 19:20 Ur Amphetamines Screen Negative ng/mL (Negative) 03/22/23 19:20 U Benzodiazepines Scrn Positive ng/mL (Negative) H 03/22/23 19:20 Urine Cocaine Screen Negative ng/mL (Negative) 03/22/23 19:20 U Marijuana (THC) Screen Negative ng/mL (Negative) 03/22/23 19:20 Ethyl Alcohol < 10 mg/dL (0-10) 03/22/23 14:39 Vitals Last Vital Signs Temp 97.8 F 03/25/23 11:21 Pulse 78 03/25/23 11:38 Resp 16 03/25/23 11:38 BP 132/76 03/25/23 11:21 Pulse Ox 95 03/25/23 11:38 O2 Del Method Room Air 03/25/23 11:38 O2 Flow Rate 2 03/24/23 20:00 Discharge Plan Discharge Patient Disposition: Home Condition: Stable Prescriptions: Continued guaifenesin 400 mg tablet 400 mg PO Q4H PRN (Reason: congestion) rivaroxaban 20 mg tablet 20 mg PO QAM Rx Instructions: must administer with evening meal sertraline 100 mg tablet 200 mg PO QAM atorvastatin 40 mg tablet 20 mg PO QAM Breztri Aerosphere 160-9-4.8 mcg/actuation HFA aerosol inhaler 2 inh inhalation BID Qty: 10.7 3RF clotrimazole-betamethasone 1-0.05 % Cream 1 applic TOPICAL PRN PRN (Reason: Wound Care) bismuth subsalicylate 525 mg/15 mL Suspension 525 mg PO Q4H PRN (Reason: Nausea) Rx Instructions: do not exceed 8 doses in a 24 hour period acetaminophen 500 mg Tablet 1,000 mg PO Q6H PRN (Reason: Pain) levalbuterol HCl 1.25 mg/3 mL Solution For Nebulization 1.25 mg INHALATION .UP TO 6 TIMES A DAY ipratropium-albuterol 0.5 mg-3 mg(2.5 mg base)/3 mL solution for nebulization 3 ml inhalation QAM albuterol sulfate 90 mcg/actuation HFA aerosol inhaler 2 inh INHALATION Q6H PRN (Reason: shortness of breath or wheezing) buspirone 10 mg Tablet 20 mg PO TID naproxen 375 mg Tablet 375 mg PO BID PRN (Reason: Pain) gabapentin 300 mg capsule 300 mg PO BID 30 Days Qty: 60 1RF Changed Medrol (Otilio) 4 mg Tablets,Dose Pack See Rx Instructions .ROUTE .COMPLEX 5 Days Qty: 21 0RF Rx Instructions: Per Medrol Dose Pack Instructions Discontinued prednisone 20 mg tablet See Rx Instructions .ROUTE .COMPLEX Rx Instructions: 1 p.o. 3 times daily x3 days, 1 p.o. twice daily x2 days, 1 p.o. daily x2 days (not started as of 03/22/23 on hold at [facility] waiting for nm approval) prednisone 50 mg Tablet See Rx Instructions .ROUTE .COMPLEX Rx Instructions: 50mg po bid x3 days 50mg po daily X3 days 25mg po daily x3 days Discharge Orders: Discharge Order (Routine); Ordered 03/25/23 Ordered By: Earle Gibbs Referrals: Dilshad Anderson DO [Primary Care Provider] - 04/07/23 2:00 pm Discharge Diet: Advance as tolerated and Usual diet Discharge Activity: Resume usual activity and Increase activity as tolerated Patient Instructions: COPD, Gabapentin (By mouth), Anxiety (GEN), Opioid Safety, Suicidal Ideation Activity Restrictions/Additional Instructions: 1. Increase activity as tolerated. 2. Take medications as prescribed. 3. Follow up with primary care provider. Discharge Attestations Time Spent in Discharge Care*: greater than 30 min Quality Metrics Clinical Quality Measures [ No reported AMI, CVA or VTE this stay] Coding Level of Care Code Acute Code for [facility] Fwd Diagnoses Osteoarthritis M19.90 Pulmonary embolism I26.99 Acute exacerbation of chronic obstructive airways disease J44.1 COPD (chronic obstructive pulmonary disease) J44.9 Anxiety F41.9 Suicidal ideation R45.851 Hearing loss H91.90
[2023-03-25 12:57] VITALS: BP 132/76; PULSE 78; RESP 16; TEMP 36.6; O2SAT 95
== END 2023-03-25 12:59 | disposition home or self-care (01) ==
LOC: ER 16:54 → MEDSURG 17:55
PROVIDERS: Admitting Provider Internal Medicine; Emergency Provider Family Medicine; PCP Emergency Medicine Emergency Medical Services; Visit Provider Internal Medicine
DX: R45.851 Suicidal ideations (principal); F41.9 Anxiety disorder, unspecified; F43.10 Post-traumatic stress disorder, unspecified; J44.1 Chronic obstructive pulmonary disease with (acute) exacerbation; E78.5 Hyperlipidemia, unspecified; G47.33 Obstructive sleep apnea (adult) (pediatric); M19.90 Unspecified osteoarthritis, unspecified site; H91.90 Unspecified hearing loss, unspecified ear; F32.A Depression, unspecified; Z79.01 Long term (current) use of anticoagulants; Z79.899 Other long term (current) drug therapy; Z86.711 Personal history of pulmonary embolism; Z87.891 Personal history of nicotine dependence; Z88.0 Allergy status to penicillin
CPT/HCPCS: 80053; 80306; 80307; 85025; 94640; 94660; 94664; 96374; 96375; 96376; 99285; G0378; J2060; J2920; J2930; J7512; J7626

== ENCOUNTER 2023-04-06 07:25 | Emergency (ER) | payer OTHER, SELFPAY ==
[2023-04-06] VITALS (8 sets, daily range): BP systolic 113–127; BP diastolic 74–96; PULSE 82–96; RESP 20–22; TEMP 36.9; O2SAT 90–99; BMI 29.7
--- NOTE | 2023-04-06 07:46 | XR_ITS ---
WS: [id number] Exam: XR chest 1V portable [id number] Date/Time of Exam: 04/06/2023 7:48 AM Reason For Exam: wheezing Comparison 03/21/2023. The lungs are fully expanded and clear. Normal cardiomediastinal silhouette. No pleural effusions. Re gional bony structures are intact. There appears to be a healing LEFT ninth rib fracture. Monitoring leads superimpose the chest. IMPRESSION: 1. No acute cardiopulmonary finding. 2. Healing LEFT ninth rib fracture.
--- NOTE | 2023-04-06 07:47 | ED_ITS ---
HPI - SOB/Dyspnea General: Chief Complaint: Shortness of Breath/Dyspnea Stated Complaint: SOB Time Seen by Provider: 04/06/23 07:30 History of Present Illness: HPI Narrative: Patient presents to the ER with complaints of shortness of breath starting about 3 AM. Patient did take 1 Xopenex, 1 albuterol inhaler prior to arrival. Patient is shaky and jittery right now and says it did not work. Patient's O2 sat is upright 94% on 2 L. Patient does have a history of COPD. Patient was just released from the hospital not too long ago for COPD exacerbation. Patient does have a history of PEs and is on Xarelto currently. Review of Systems General: Reports: 10 or more systems reviewed and unremarkable except in HPI and below PFSH ED PFSH: Medical History Acute exacerbation of chronic obstructive airways disease Anxiety related to PTSD, can be severe, takes benzodiazepines as needed and buspar scheduled Anxiety Chronic anticoagulation xarelto, for history of PE in 2019 COPD (chronic obstructive pulmonary disease) COPD (chronic obstructive pulmonary disease) Erectile dysfunction Exertional dyspnea Fracture of rib (~07/2022) right 10th rib Hearing loss History of cardiovascular stress test 04/2022 false positive History of PFTs 06/2022 Severe airflow obstruction, no post bronchodilator study, lung vo lumes not measured, moderate gas transfer defect. Consistent with obstructive ventilatory disease. History of smoking 70-100 pack years, quit ~03/2022 Hyperlipidemia Malignant neoplasm of prostate s/p TURP BETH on CPAP Osteoarthritis PTSD (post-traumatic stress disorder) Pulmonary embolism Unprovoked, 2019, on chronic anticoagulation with rivaroxaban, CTA chest 07/2022 with no focal PE identified Surgical History History of appendectomy History of cardiac catheterization 05/2022 [place], no obstructive CAD History of cholecystectomy 2006 History of colonoscopy 2013 no abnormalities History of inguinal hernia repair right History of repair of congenital cleft palate History of thoracotomy trauma from left rib fracture while on anticoagulation History of tonsillectomy History of transurethral resection of prostate 2014, for prostate cancer History of vasectomy with subsequent failed reversal Family History Father Stroke Dementia CAD (coronary artery disease) Other Anxiety Social History Smoking and tobacco status: former smoker (1 cig/day) Quit status (tobacco): has quit using tobacco Former quit date comment: 03/2022 Alcohol intake: current Alcohol intake frequency: few times a week Alcohol type: hard liquor Substance/Drug Use: current Substance/Drug use frequency: Special occassions/opportunity only Household members: spouse Marital status: service: Yes status details: 15 years [employer], 5 years [employer], 100% service connected Physical Exam Const: COMMON NORMALS: no acute distress, average body habitus, patient oriented x3, no limitations, healthy appearing, alert and well nourished HENMT: COMMON NORMALS: normocephalic, atraumatic, hearing grossly normal bilaterally, external ears normal, Normal external nose present and moist oral mucous membranes HEAD & SCALP: normocephalic and atraumatic NOSE: Normal external nose present EXTERNAL EAR: Yes external ears normal Eye: COMMON NORMALS: Equal, round and reactive pupils present, EOMs intact bilaterally, conjunctivae normal and no scleral icterus CONJUNCTIVA: Yes conjunctivae normal PUPIL: Yes Equal, round and reactive pupils present Neck/C-Spine: COMMON NORMALS: full ROM, no lymphadenopathy, supple, no meningeal signs, no JVD and Thyroid normal THYROID: Thyroid normal Lymph: LYMPHATIC: no lymphadenopathy noted Chest: COMMONS NORMALS: normal inspection of the chest and normal palpation of entire chest wall Resp: COMMON NORMALS: normal respiratory effort, No retractions and No use of accessory muscles; negative for clear to auscultation bilaterally (Diffuse wheezing) AUSCULTATION: not clear to auscultation bilaterally (Diffuse wheezing) Cardio: COMMON NORMALS: no JVD GI: COMMON NORMALS: Normal to inspection, nondistended, normoactive bowel sounds present, Soft to palpation, non-tender, No hepatosplenomegaly present and no masses PALPATION: Yes Soft to palpation and Yes No hepatosplenomegaly present : COMMON NORMALS: Yes no CVA tenderness BLADDER/KIDNEY EXAM: Yes no CVA tenderness Back/Pelvis: COMMON NORMALS: no CVA tenderness Neuro: COMMON NORMALS: patient oriented x3 SENSORIUM/ORIENTATION: Yes alert MENINGEAL SIGNS: Yes no meningeal signs Course Vital Signs: Vital signs: Vital Signs Temperature 98.4 F 04/06/23 07:31 Pulse Rate 90 04/06/23 08:25 Respiratory Rate 20 H 04/06/23 08:20 Blood Pressure 113/74 04/06/23 08:00 Pulse Oximetry 97 04/06/23 08:20 Oxygen Delivery Me thod Nasal Cannula 04/06/23 08:20 Oxygen Flow Rate 2 04/06/23 08:20 MDM - SOB/Dyspnea Medical Decision Making Patient presents to the ER with complaints of shortness of breath that started overnight. Patient took 2 breathing treatments at home EMS gave him a breathing treatment on route and Solu-Medrol. Patient has maintained a saturation of 90+ percent after DuoNeb breathing treatment on room air. Chest x-ray was negative as well as labs were benign. Patient will be given a prescription for some prednisone and will be discharged home to follow-up with his PCP. Differential Diagnosis Likely acute exacerbation of chronic obstructive airways disease; Unlikely congestive heart failure, community acquired pneumonia, asthma with exacerbation or pulmonary embolism Lab Data I reviewed the patient's lab results. 04/06/23 08:45 04/06/23 08:45 Labs/Radiology: Laboratory Results WBC 7.47 10^3/uL (3.29-11.43) 04/06/23 08:45 RBC 4.26 10^6/uL (3.85-5.65) 04/06/23 08:45 Hgb 12.50 g/dL (11.27-16.99) 04/06/23 08:45 Hct 38.6 % (37-53) 04/06/23 08:45 MCV 90.6 fl (82-101) 04/06/23 08:45 MCH 29.3 pg (27-33) 04/06/23 08:45 MCHC 32.4 g/dL (30-55) 04/06/23 08:45 RDW 13.5 % (12.1-15.1) 04/06/23 08:45 Plt Count 185 10^3/cmm (157-399) 04/06/23 08:45 MPV 9.9 fL (7.4-10.4) 04/06/23 08:45 Neut % (Auto) 81.9 % 04/06/23 08:45 Lymph % (Auto) 4.3 % 04/06/23 08:45 [place] % (Auto) 2.1 % 04/06/23 08:45 Eos % (Auto) 10.4 % 04/06/23 08:45 Baso % (Auto) 0.8 % 04/06/23 08:45 Neut # (Auto) 6.11 10^3/uL (1.8-7.7) 04/06/23 08:45 Lymph # (Auto) 0.3 10^3/uL (0.8-4.8) L 04/06/23 08:45 [place] # (Auto) 0.2 10^3/uL (0.2-0.9) 04/06/23 08:45 Eos # (Auto) 0.8 10^3/uL (0.0-0.8) 04/06/23 08:45 Baso # (Auto) 0.1 10^3/uL (0.0-0.1) 04/06/23 08:45 Nucleated RBC % (auto) 0 % 04/06/23 08:45 Nucleated RBCs # 0.0 /100WBC 04/06/23 08:45 Sodium 140 mmol/L (136-145) 04/06/23 08:45 Potassium 3.9 mmol/L (3.5-5.1) 04/06/23 08:45 Chloride 106 mmol/L (98-107) 04/06/23 08:45 Carbon Dioxide 26 mmol/L (22-29) 04/06/23 08:45 Anion Gap 11.9 (5-19) 04/06/23 08:45 BUN 16 mg/dL (8-23) 04/06/23 08:45 Creatinine 0.9 mg/dL (0.7-1.2) 04/06/23 08:45 GFR Calculation 83.7 mL/min (90-130) L 04/06/23 08:45 Glucose 115 mg/dL (65-115) 04/06/23 08:45 Calculated Osmolality 292 mOsm/kg (285-295) 04/06/23 08:45 Calcium 8.6 mg/dL (8.5-10.5) 04/06/23 08:45 Total Bilirubin 0.3 mg/dL (0.15-1.2) 04/06/23 08:45 AST 15 U/L (0-40) 04/06/23 08:45 ALT 17 U/L (0-41) 04/06/23 08:45 Alkaline Phosphatase 69 U/L (40-130) 04/06/23 08:45 Total Protein 6.1 g/dL (6.6-8.7) L 04/06/23 08:45 Albumin 4.2 g/dL (3.5-5.2) 04/06/23 08:45 Globulin 1.9 g/dL (1.3-4.6) 04/06/23 08:45 Discharge Plan Discharge Patient Disposition: Home Clinical Impression: Acute exacerbation of chronic obstructive airways disease Condition: Stable Prescriptions: New prednisone 50 mg tablet 50 mg PO DAILY 7 Days Qty: 7 0RF No Action guaifenesin 400 mg tablet 400 mg PO Q4H PRN (Reason: congestion) rivaroxaban 20 mg tablet 20 mg PO QAM Rx Instructions: must administer with evening meal sertraline 100 mg tablet 200 mg PO QAM atorvastatin 40 mg tablet 20 mg PO QAM Breztri Aerosphere 160-9-4.8 mcg/actuation HFA aerosol inhaler 2 inh inhalation BID Qty: 10.7 3RF clotrimazole-betamethasone 1-0.05 % Cream 1 applic TOPICAL PRN PRN (Reason: Wound Care) bismuth subsalicylate 525 mg/15 mL Suspension 525 mg PO Q4H PRN (Reason: Nausea) Rx Instructions: do not exceed 8 doses in a 24 hour period acetaminophen 500 mg Tablet 1,000 mg PO Q6H PRN (Reason: Pain) levalbuterol HCl 1.25 mg/3 mL Solution For Nebulization 1.25 mg INHALATION .UP TO 6 TIMES A DAY ipratropium-albuterol 0.5 mg-3 mg(2.5 mg base)/3 mL solution for nebulization 3 ml inhalation QAM albuterol sulfate 90 mcg/actuation HFA aerosol inhaler 2 inh INHALATION Q6H PRN (Reason: shortness of breath or wheezing) buspirone 10 mg Tablet 20 mg PO TID naproxen 375 mg Tablet 375 mg PO BID PRN (Reason: Pain) trazodone 50 mg Tablet 50 mg PO DAILY gabapentin 300 mg capsule 300 mg PO TID Discharge Orders: Discharge ED (Routine); Ordered 04/06/23 Ordered By: Ernst Johnson Referrals: Dilshad Anderson, [Primary Care Provider] - 1 week Patient Instructions: COPD (Chronic Obstructive Pulmonary Disease) (ED) Activity Restrictions/Additional Instructions: Please take all your steroids as directed. Please follow-up with your family practice doctor in approximately 7 days or sooner as needed. Coding Level of Care Code ED [employer] Health Assistant for Portia Mcneal
[2023-04-06] MEDS: ipratropium-albuterol 3 mL Neb INHALATION (08:22)
[2023-04-06 09:02] LABS: Basophils # 0.1 10^3/uL (0.0-0.1); Basophils % 0.8 %; Eosinophils # 0.8 10^3/uL (0.0-0.8); Eosinophils % 10.4 %; Hematocrit 38.6 % (37-53); Lymphocytes # 0.3 10^3/uL (0.8-4.8); Lymphocytes % 4.3 %; Mean Corpuscular HGB Conc 32.4 g/dL (30-55); Mean Corpuscular Hemoglobin 29.3 pg (27-33); Mean Corpuscular Volume 90.6 fl (82-101); Mean Platelet Volume 9.9 fL (7.4-10.4); Monocytes # 0.2 10^3/uL (0.2-0.9); Monocytes % 2.1 %; Neutrophils # 6.11 10^3/uL (1.8-7.7); Neutrophils % 81.9 %; Nucleated Red Blood Cells % 0 %; Platelet Count 185 10^3/cmm (157-399); Red Blood Count 4.26 10^6/uL (3.85-5.65); Red Cell Distribution Width 13.5 % (12.1-15.1); White Blood Count 7.47 10^3/uL (3.29-11.43)
[2023-04-06 09:11] LABS: Alanine Aminotransferase 17 U/L (0-41); Albumin Level 4.2 g/dL (3.5-5.2); Alkaline Phosphatase 69 U/L (40-130); Anion Gap 11.9 (5-19); Aspartate Amino Transferase 15 U/L (0-40); Blood Urea Nitrogen 16 mg/dL (8-23); Calcium 8.6 mg/dL (8.5-10.5); Carbon Dioxide 26 mmol/L (22-29); Chloride 106 mmol/L (98-107); Globulin 1.9 g/dL (1.3-4.6); Glomerular Filtration Rate 83.7 mL/min (90-130); Glucose 115 mg/dL (65-115); Osmolality Calculated 292 mOsm/kg (285-295); Potassium 3.9 mmol/L (3.5-5.1); Sodium 140 mmol/L (136-145); Total Bilirubin 0.3 mg/dL (0.15-1.2); Total Protein 6.1 g/dL (6.6-8.7)
== END 2023-04-06 10:57 | disposition home or self-care (01) ==
PROVIDERS: Emergency Provider Emergency Medicine; PCP Emergency Medicine Emergency Medical Services
DX: J44.1 Chronic obstructive pulmonary disease with (acute) exacerbation (principal); Z87.891 Personal history of nicotine dependence; E78.5 Hyperlipidemia, unspecified; Z85.46 Personal history of malignant neoplasm of prostate
CPT/HCPCS: 36415; 71045; 80053; 85025; 94640; 99284

== ENCOUNTER → 2023-04-21 09:33 | Outpatient (BNVA) | payer OTHER, SELFPAY | PROVIDERS: PCP Emergency Medicine Emergency Medical Services; Visit Provider Internal Medicine Pulmonary Disease | DX: J44.9 Chronic obstructive pulmonary disease, unspecified (principal); Z12.2 Encounter for screening for malignant neoplasm of respiratory organs; Z71.6 Tobacco abuse counseling; F17.210 Nicotine dependence, cigarettes, uncomplicated; G47.33 Obstructive sleep apnea (adult) (pediatric); Z99.89 Dependence on other enabling machines and devices; Z86.711 Personal history of pulmonary embolism | CPT/HCPCS: 99214 ==

== ENCOUNTER → 2023-05-04 10:27 | Outpatient (BNVA) | payer OTHER, SELFPAY | PROVIDERS: PCP Emergency Medicine Emergency Medical Services; Referring Provider Emergency Medicine Emergency Medical Services; Visit Provider Surgery | DX: D50.9 Iron deficiency anemia, unspecified; Z90.49 Acquired absence of other specified parts of digestive tract | CPT/HCPCS: 99204 ==

== ENCOUNTER 2023-05-18 17:23 | Inpatient (IN) | payer OTHER, SELFPAY ==
[2023-05-18] VITALS (12 sets, daily range): BP systolic 107–156; BP diastolic 68–99; PULSE 68–93; RESP 16–28; TEMP 36.8–37.1; O2SAT 91–98; BMI 30.2
--- NOTE | 2023-05-18 17:44 | ECG_ITS ---
[facility] Test Date: 2023-05-18 Pat Name: Jaswant Macdonald Department: Room: Gender: Male [employer] Tester: : 1955 Requested By: Moose Flores Order Number: [id number] Stephanie MD: Scar Wilson M.D. Measurements Intervals [place] Rate: 86 P: 71 FL: 162 QRS: 61 QRSD: 101 T: 65 QT: 346 QTc: 414 Interpretive Statements SINUS RHYTHM Compared to ECG 03/21/2023 15:42:54 No significant changes Electronically Signed On 05-18-2023 23:08:24 CDT by Scar Wilson M.D. [email or web address]
--- NOTE | 2023-05-18 17:44 | XRR_ITS ---
PROCEDURE INFORMATION: Exam: XR Chest Exam date and time: 05/18/2023 5:49 PM Age: 67 years old Clinical indication: Shortness of breath; Additional info: SOB TECHNIQUE: Imaging protocol: Radiologic exam of the chest. Views: 1 view. COMPARISON: CR XR chest 1V portable [id number] 04/06/2023 7:51 AM FINDINGS: Lungs: Unremarkable. No consolidation. Pleural spaces: Unremarkable. No pleural effusion. No pneumothorax. Heart/Mediastinum: Unremarkable. No cardiomegaly. Bones/joints: Unremarkable. XR/XR chest 1V portable [id number] IMPRESSION: No acute findings.
--- NOTE | 2023-05-18 17:50 | W.ED.SOB ---
HPI - SOB/Dyspnea General: Chief Complaint: Shortness of Breath/Dyspnea Stated Complaint: bp high, sob Time Seen by Provider: 05/18/23 17:41 Source: patient Mode of arrival: ambulatory Limitations: no limitations History of Present Illness: HPI Narrative: Patient is a 67-year-old male who presents the emergency room with shortness of breath and high blood pressure. Patient stated that symptoms started when he awoke this morning and has progressively worsened. patient stated that he did try several albuterol treatments as well as p.o. prednisone but was unsuccessful in relieving symptoms. Patient denies any chest pain abdominal pain nausea or vomiting at this time. Reports a chronic cough with no sputum production .does state that he does have episodes of diarrhea which started yesterday. Denies any fevers. No other complaints at this time. MD elicited complaint: shortness of breath and cough Pertinent past history: COPD Associated symptoms: Deny abdominal pain, chest pain, fever(s), nausea or vomiting Review of Systems Const: Denies: fever(s), chills, body aches or change in appetite Eyes: Denies: blurry vision or eye discomfort ENMT: Denies: throat pain or dental pain Card: Denies: chest pain Resp: Reports: dyspnea and non-productive cough GI: Reports: diarrhea; Denies: abdominal pain, nausea or vomiting : Denies: dysuria Musc: Denies: neck pain or back pain Skin/Breast: Denies: rash Neuro: Denies: headache(s) Psych: Denies: depression [place]/Lymph: Denies: easy bruising All/Imm: Denies: urticaria PFSH ED PFSH: Medical History Acute exacerbation of chronic obstructive airways disease Anxiety related to PTSD, can be severe, takes benzodiazepines as needed and buspar scheduled Anxiety Chronic anticoagulation xarelto, for history of PE in 2019 COPD (chronic obstructive pulmonary disease) COPD (chronic obstructive pulmonary disease) Erectile dysfunction Exertional dyspnea Fracture of rib (~07/2022) right 10th rib Hearing loss History of cardiovascular stress test 04/2022 false positive History of PFTs 06/2022 Severe airflow obstruction, no post bronchodilator study, lung volumes not measured, moderate gas transfer defect. Consistent with obstructive ventilatory disease. History of smoking 70-100 pack years, quit ~03/2022 Hyperlipidemia Malignant neoplasm of prostate s/p TURP BETH on CPAP Osteoarthritis PTSD (post-traumatic stress disorder) Pulmonary embolism Unprovoked, 2019, on chronic anticoagulation with rivaroxaban, CTA chest 07/2022 with no focal PE identified Surgical History History of appendectomy History of cardiac catheterization 05/2022 [place], no obstructive CAD History of cholecystectomy 2006 History of colonoscopy 2013 no abnormalities History of inguinal hernia repair right History of repair of congenital cleft palate History of thoracotomy trauma from left rib fracture while on anticoagulation History of tonsillectomy History of transurethral resection of prostate 2014, for prostate cancer History of vasectomy with subsequent failed reversal Family History Father Stroke Dementia CAD (coronary artery disease) Other Anxiety Social History Smoking and tobacco status: former smoker (1 cig/day) Quit status (tobacco): has quit using tobacco Former quit date comment: 03/2022 Alcohol intake: current Alcohol intake frequency: few times a week Alcohol type: hard liquor Substance/Drug Use: current Substance/Drug use frequency: Special occassions/opportunity only Household members: spouse Marital status: service: Yes status details: 15 years [employer], 5 years [employer], 100% service connected Physical Exam Const: COMMON NORMALS: patient oriented x3 and alert GENERAL APPEARANCE: in distress and anxious ORIENTATION/CONSCIOUSNESS: Yes awake HENMT: COMMON NORMALS: normocephalic and atraumatic HEAD & SCALP: normocephalic and atraumatic Eye: COMMON NORMALS: Equal, round and reactive pupils present and EOMs intact bilaterally PUPIL: Yes Equal, round and reactive pupils present Neck/C-Spine: COMMON NORMALS: full ROM and supple Chest: COMMONS NORMALS: normal inspection of the chest and normal palpation of entire chest wall CHEST: Yes Symmetrical chest wall rise Resp: EFFORT & INSPECTION: Yes symmetric chest movement, Yes audible wheezes and Yes prolonged expiratory phase AUSCULTATION: wheezes Cardio: COMMON NORMALS: regular rate, regular rhythm and No murmurs present (Cardio) RATE: regular rate RHYTHM: regular rhythm GI: COMMON NORMALS: Normal to inspection, nondistended, normoactive bowel sounds present, Soft to palpation, non-tender and no masses PALPATION: Yes Soft to palpation Extremity: COMMON NORMALS: normal to inspection and full ROM Neuro: COMMON NORMALS: patient oriented x3, moves all extremities and no focal motor deficits SENSORIUM/ORIENTATION: Yes alert Psych: COMMON NORMALS: mental status grossly normal, Normal thought process present and cooperative THOUGHT PROCESS: Normal thought process present Skin: COMMON NORMALS: no rashes or lesions noted and no wounds GENERAL SKIN EXAM: no rashes or lesions noted Course Vital Signs: Vital signs: Vital Signs Temperature 98.7 F 05/18/23 17:35 Pulse Rate 88 05/18/23 18:19 Respiratory Rate 16 05/18/23 18:15 Blood Pressure 144/89 05/18/23 18:42 Pulse Oximetry 93 05/18/23 18:30 Oxygen Delivery Me thod Nasal Cannula 05/18/23 18:30 Oxygen Flow Rate 2 05/18/23 18:30 MDM - SOB/Dyspnea Medical Decision Making Patient presents here with COPD exacerbation x-ray shows no signs of pneumonia. He is requiring 2 L oxygen here spoke to hospitalist will admit at this time. Medical Records I reviewed the patient's medical records. Lab Data I reviewed the patient's lab results. 05/18/23 18:00 05/18/23 18:00 Labs/Radiology: Radiology Impressions Chest X-Ray 05/18/23 17:44 IMPRESSION: No acute findings. Laboratory Results WBC 7.02 10^3/uL (3.29-11.43) 05/18/23 18:00 RBC 4.38 10^6/uL (3.85-5.65) 05/18/23 18:00 Hgb 13.00 g/dL (11.27-16.99) 05/18/23 18:00 Hct 38.4 % (37-53) 05/18/23 18:00 MCV 87.7 fl (82-101) 05/18/23 18:00 MCH 29.7 pg (27-33) 05/18/23 18:00 MCHC 33.9 g/dL (30-55) 05/18/23 18:00 RDW 14.7 % (12.1-15.1) 05/18/23 18:00 Plt Count 236 10^3/cmm (157-399) 05/18/23 18:00 MPV 11.2 fL (7.4-10.4) H 05/18/23 18:00 Neut % (Auto) 80.1 % 05/18/23 18:00 Lymph % (Auto) 6.6 % 05/18/23 18:00 [place] % (Auto) 2.8 % 05/18/23 18:00 Eos % (Auto) 8.0 % 05/18/23 18:00 Baso % (Auto) 1.6 % 05/18/23 18:00 Neut # (Auto) 5.63 10^3/uL (1.8-7.7) 05/18/23 18:00 Lymph # (Auto) 0.5 10^3/uL (0.8-4.8) L 05/18/23 18:00 [place] # (Auto) 0.2 10^3/uL (0.2-0.9) 05/18/23 18:00 Eos # (Auto) 0.6 10^3/uL (0.0-0.8) 05/18/23 18:00 Baso # (Auto) 0.1 10^3/uL (0.0-0.1) 05/18/23 18:00 Nucleated RBC % (auto) 0 % 05/18/23 18:00 Nucleated RBCs # 0.0 /100WBC 05/18/23 18:00 Specimen Type Arterial 05/18/23 18:17 Sample Site Radial, left 05/18/23 18:17 ABG pH 7.37 (7.35-7.45) 05/18/23 18:17 ABG pCO2 47.1 mmHg (35-45) H 05/18/23 18:17 ABG pO2 70.0 mmHg (80.0-100.0) L 05/18/23 18:17 ABG HCO3 27.3 mmol/L (22-26) H 05/18/23 18:17 ABG Base Excess 1.5 mmol/L (-2.0-2.0) 05/18/23 18:17 Tarun Test Pos 05/18/23 18:17 Hematocrit 38.8 % (42-52) L 05/18/23 18:17 Hgb O2 Saturation 92.9 % (95-100) L 05/18/23 18:17 Carboxyhemoglobin 1.9 %THgb (0.4-20.1) 05/18/23 18:17 Methemoglobin 0.5 % (0.4-1.5) 05/18/23 18:17 Total Hemoglobin 12.7 g/dL (14-18) L 05/18/23 18:17 O2 Delivery Device Nc 05/18/23 18:17 O2 Liters/Min 2.0 % 05/18/23 18:17 FiO2 28.0 % 05/18/23 18:17 Intelligence Officer Basic ID Cak 05/18/23 18:17 Sodium 139 mmol/L (136-145) 05/18/23 18:00 Potassium 4.8 mmol/L (3.5-5.1) 05/18/23 18:00 Chloride 103 mmol/L (98-107) 05/18/23 18:00 Carbon Dioxide 27 mmol/L (22-29) 05/18/23 18:00 Anion Gap 13.8 (5-19) 05/18/23 18:00 BUN 16 mg/dL (8-23) 05/18/23 18:00 Creatinine 0.8 mg/dL (0.7-1.2) 05/18/23 18:00 GFR Calculation 95.8 mL/min (90-130) 05/18/23 18:00 Glucose 107 mg/dL (65-115) 05/18/23 18:00 Calculated Osmolality 290 mOsm/kg (285-295) 05/18/23 18:00 Calcium 9.1 mg/dL (8.5-10.5) 05/18/23 18:00 Total Bilirubin 0.2 mg/dL (0.15-1.2) 05/18/23 18:00 AST 21 U/L (0-40) 05/18/23 18:00 ALT 22 U/L (0-41) 05/18/23 18:00 Alkaline Phosphatase 80 U/L (40-130) 05/18/23 18:00 NT-Pro-B Natriuret Pep 44 pg/mL (0-125) 05/18/23 18:00 Total Protein 6.7 g/dL (6.6-8.7) 05/18/23 18:00 Albumin 4.4 g/dL (3.5-5.2) 05/18/23 18:00 Globulin 2.3 g/dL (1.3-4.6) 05/18/23 18:00 SARS-CoV-2 Ag (Rapid) negative (Negative) 05/18/23 18:00 All radiology interpretation(s) finalized by discharge EKG Data EKG 1: I personally reviewed and interpreted this EKG as follows: EKG Interpretation Date: 05/18/23 EKG interpretation time: 18:02 Interpretation: nsr hr [address] or t wave abnormalities qrs 101 qtc 389 Discharge Plan Discharge Patient Disposition: Admitted As Inpatient Clinical Impression: Acute exacerbation of chronic obstructive airways disease Condition: Stable Prescriptions: No Action guaifenesin 400 mg tablet 400 mg PO Q4H PRN (Reason: congestion) rivaroxaban 20 mg tablet 20 mg PO QAM Rx Instructions: must administer with evening meal sertraline 100 mg tablet 200 mg PO QAM atorvastatin 40 mg tablet 20 mg PO QAM ipratropium-albuterol 0.5 mg-3 mg(2.5 mg base)/3 mL solution for nebulization 3 ml inhalation Q6H PRN (Reason: shortness of breath or wheezing) Qty: 180 3RF Breztri Aerosphere 160-9-4.8 mcg/actuation HFA aerosol inhaler 2 inh inhalation BID Qty: 10.7 3RF clotrimazole-betamethasone 1-0.05 % Cream 1 applic TOPICAL PRN PRN (Reason: Wound Care) bismuth subsalicylate 525 mg/15 mL Suspension 525 mg PO Q4H PRN (Reason: Nausea) Rx Instructions: do not exceed 8 doses in a 24 hour period acetaminophen 500 mg Tablet 1,000 mg PO Q6H PRN (Reason: Pain) levalbuterol HCl 1.25 mg/3 mL Solution For Nebulization 1.25 mg INHALATION .UP TO 6 TIMES A DAY albuterol sulfate 90 mcg/actuation HFA aerosol inhaler 2 inh INHALATION Q6H PRN (Reason: shortness of breath or wheezing) buspirone 10 mg Tablet 20 mg PO TID trazodone 50 mg Tablet 50 mg PO DAILY gabapentin 300 mg capsule 300 mg PO TID Referrals: Dilshad Anderson DO [Primary Care Provider] - Coding Level of Care Code 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
[2023-05-18] MEDS: methylPREDNISolone sod succ 125 MG in water for injection-sterile 2 ML 24 MG IVP (18:03)
[2023-05-18] MEDS: albuterol 2.5 mg/3 mL Neb INHALATION (18:15)
[2023-05-18] MEDS: ipratropium-albuterol 3 mL Neb INHALATION (18:15)
[2023-05-18 18:20] LABS: Basophils # 0.1 10^3/uL (0.0-0.1); Basophils % 1.6 %; Eosinophils # 0.6 10^3/uL (0.0-0.8); Hematocrit 38.4 % (37-53); Lymphocytes # 0.5 10^3/uL (0.8-4.8); Lymphocytes % 6.6 %; Mean Corpuscular HGB Conc 33.9 g/dL (30-55); Mean Corpuscular Hemoglobin 29.7 pg (27-33); Mean Corpuscular Volume 87.7 fl (82-101); Mean Platelet Volume 11.2 fL (7.4-10.4); Monocytes # 0.2 10^3/uL (0.2-0.9); Monocytes % 2.8 %; Neutrophils # 5.63 10^3/uL (1.8-7.7); Neutrophils % 80.1 %; Nucleated Red Blood Cells % 0 %; Platelet Count 236 10^3/cmm (157-399); Red Blood Count 4.38 10^6/uL (3.85-5.65); Red Cell Distribution Width 14.7 % (12.1-15.1); White Blood Count 7.02 10^3/uL (3.29-11.43)
[2023-05-18 18:28] LABS: ABG PCO2 47.1 mmHg (35-45); ABG PH Result 7.37 (7.35-7.45); Arterial Blood Gas Hematocrit 38.8 % (42-52); Base Excess ABG 1.5 mmol/L (-2.0-2.0); Blood Gas Allen Test Pos; Blood Gas Operator Identificat CAK; Blood Gas Sample Site Radial, left; Blood Gas Sample Type Arterial; Carboxyhemoglobin 1.9 %THgb (0.4-20.1); HCO3 ABG 27.3 mmol/L (22-26); HGB O2 Sat 92.9 % (95-100); Methemoglobin 0.5 % (0.4-1.5); Oxygen Device NC; Total Hemoglobin 12.7 g/dL (14-18)
[2023-05-18 18:37] LABS: SARS Covid-2 Antigen negative (Negative)
[2023-05-18 18:50] LABS: Alanine Aminotransferase 22 U/L (0-41); Albumin Level 4.4 g/dL (3.5-5.2); Alkaline Phosphatase 80 U/L (40-130); Anion Gap 13.8 (5-19); Aspartate Amino Transferase 21 U/L (0-40); Blood Urea Nitrogen 16 mg/dL (8-23); Calcium 9.1 mg/dL (8.5-10.5); Carbon Dioxide 27 mmol/L (22-29); Chloride 103 mmol/L (98-107); Globulin 2.3 g/dL (1.3-4.6); Glomerular Filtration Rate 95.8 mL/min (90-130); Glucose 107 mg/dL (65-115); NT Pro B Type Natriuretic Pept 44 pg/mL (0-125); Osmolality Calculated 290 mOsm/kg (285-295); Potassium 4.8 mmol/L (3.5-5.1); Sodium 139 mmol/L (136-145); Total Bilirubin 0.2 mg/dL (0.15-1.2); Total Protein 6.7 g/dL (6.6-8.7)
--- NOTE | 2023-05-18 21:45 | PM.HP ---
Providers/Chief Complaint Admitting Physician: Sherrell Brennan MD Primary Care Provider: Dilshad Anderson DO Chief Complaint: bp high, sob History of Present Illness Jaswant Macdonald is a 67 year old male with history of COPD not on supplemental oxygen at home left lower extremity DVT on Xarelto, anxiety, presented with complaint of worsening shortness of breath since 2 days. He reported shortness of breath gradually worsened, was present at rest and was not associated with fever cough cold chest pain. He took a nebulizer treatment but with no relief. He has history of sick contact at home. He is an active smoker smokes 3 cigarettes in last 1 week. He also reported to have 2 episodes of diarrhea this afternoon but no nausea abdominal pain or vomiting. In ER he was found to be hypoxic and was started on 2 L nasal cannula saturating 95%. Review of Systems Narrative: As per HPI Medications/Allergies Home Medications Medication Instructions Recorded Confirmed Last Taken Type atorvastatin 40 mg tablet 20 mg PO QAM 06/03/22 05/04/23 03/22/23 History guaifenesin 400 mg tablet 400 mg PO Q4H PRN congestion 06/03/22 05/04/23 Unknown History rivaroxaban 20 mg tablet 20 mg PO QAM 06/03/22 05/04/23 03/22/23 History sertraline 100 mg tablet 200 mg PO QAM 06/03/22 05/04/23 03/22/23 History budesonide 160 mcg-glycopyr 9 2 inh inhalation BID #10.7 grams 06/15/22 05/04/23 03/22/23 Rx mcg-formot 4.8 mcg/actuation HFA inhaler (Breztri Aerosphere) bismuth subsalicylate 525 mg/15 mL 525 mg PO Q4H PRN Nausea 08/16/22 05/04/23 Unknown History oral suspension clotrimazole-betamethasone 1 1 applic topical PRN PRN Wound Care 08/16/22 05/04/23 Unknown History %-0.05 % topical cream acetaminophen 500 mg tablet 1,000 mg PO Q6H PRN Pain 03/22/23 05/04/23 Unknown History albuterol sulfate 90 mcg/actuation 2 inh inhalation Q6H PRN shortness 03/22/23 05/04/23 Unknown History aerosol inhaler of breath or wheezing buspirone 10 mg tablet 20 mg PO TID 03/22/23 05/04/23 03/22/23 History levalbuterol HCl 1.25 mg/3 mL 1.25 mg inhalation .UP TO 6 TIMES 03/22/23 05/04/23 Unknown History solution for nebulization A DAY gabapentin 300 mg capsule 300 mg PO TID 04/06/23 05/04/23 Unknown History trazodone 50 mg tablet 50 mg PO DAILY 04/06/23 05/04/23 Unknown History ipratropium 0.5 mg-albuterol 3 mg 3 ml inhalation Q6H PRN shortness 04/21/23 05/04/23 Unknown Rx (2.5 mg base)/3 mL nebulization of breath or wheezing #180 mL soln Allergies Allergy/AdvReac Type Severity Reaction Status Date / Time Penicillins Allergy ALGY-Anaphy Verified 05/04/23 11:08 laxis PFSH Acute PFSH: Medical History Acute exacerbation of chronic obstructive airways disease Anxiety related to PTSD, can be severe, takes benzodiazepines as needed and buspar scheduled Anxiety Chronic anticoagulation xarelto, for history of PE in 2019 COPD (chronic obstructive pulmonary disease) COPD (chronic obstructive pulmonary disease) Erectile dysfunction Exertional dyspnea Fracture of rib (~07/2022) right 10th rib Hearing loss History of cardiovascular stress test 04/2022 false positive History of PFTs 06/2022 Severe airflow obstruction, no post bronchodilator study, lung volumes not measured, moderate gas transfer defect. Consistent with obstructive ventilatory disease. History of smoking 70-100 pack years, quit ~03/2022 Hyperlipidemia Malignant neoplasm of prostate s/p TURP BETH on CPAP Osteoarthritis PTSD (post-traumatic stress disorder) Pulmonary embolism Unprovoked, 2019, on chronic anticoagulation with rivaroxaban, CTA chest 07/2022 with no focal PE identified Surgical History History of appendectomy History of cardiac catheterization 05/2022 [place], no obstructive CAD History of cholecystectomy 2006 History of colonoscopy 2013 no abnormalities History of inguinal hernia repair right History of repair of congenital cleft palate History of thoracotomy trauma from left rib fracture while on anticoagulation History of tonsillectomy History of transurethral resection of prostate 2015, for prostate cancer History of vasectomy with subsequent failed reversal Family History Father Stroke Dementia CAD (coronary artery disease) Other Anxiety Social History Smoking and tobacco status: former smoker (1 cig/day) Quit status (tobacco): has quit using tobacco Former quit date comment: 03/2022 Alcohol intake: current Alcohol intake frequency: few times a week Alcohol type: hard liquor Substance/Drug Use: current Substance/Drug use frequency: Special occassions/opportunity only Household members: spouse Marital status: service: Yes status details: 15 years [employer], 5 years [employer], 100% service connected Vitals/I&O/Wt Last Vital Signs Temp 98.2 F 05/18/23 20:59 Pulse 87 05/18/23 20:59 Resp 18 05/18/23 20:59 BP 139/82 05/18/23 20:59 Pulse Ox 97 05/18/23 20:59 O2 Del Method Nasal Cannula 05/18/23 18:30 O2 Flow Rate 2 05/18/23 18:30 05/18/23 05/18/23 05/18/23 06:59 14:59 22:59 Intake Total 2 / 2 Balance 2 / 2 Weight last 48 hrs Weight 115.666 kg Physical Exam Narrative: He is alert awake oriented x3 in moderate respiratory distress, anxious obese Chest decreased bilateral air entry, minimal diffuse wheezing present bilaterally Cardiovascular normal heart sounds no murmurs Abdomen soft nontender nondistended normal bowel sounds Extremities 1+ bilateral pedal edema present Data 05/18/23 18:00 05/18/23 18:00 CXR: Radiologist's impression: No acute findings EKG 1: My Interpretation: Normal sinus rhythm No acute ST-T changes A&P Assessment and plan (1) Acute hypoxic respiratory failure: (2) Acute exacerbation of chronic obstructive airways disease: Plan 67-year-old male with a history of COPD not on supplemental oxygen at home active smoker left lower extremity DVT on Xarelto depression anxiety presented with complaint of worsening shortness of breath and was found to be hypoxic likely secondary to acute hypoxic respiratory failure secondary to COPD exacerbation Will start on IV Solu-Medrol 80 mg every 8 hours IV azithromycin 500 mg daily [place] every 6 hours Continue supplemental oxygen to keep saturations more than 90% Resume home medications IV Pepcid 20 mg every 12 hours for stress ulcer prophylaxis He is on Xarelto for history of DVT, no further DVT prophylaxis needed He is full code for [facility]*: He needs continued hospitalization for more than 2 midnights for this management of COPD exacerbation with IV antibiotics and IV steroids and nebulizer treatments Time Spent in Patient Care: 30 minutes Coding Level of Care Code Acute Code for [facility] Diagnoses Acute hypoxic respiratory failure J96.01 Acute exacerbation of chronic obstructive airways disease J44.1 Time Spent (min) 30
[2023-05-18] MEDS: sodium chloride 0.9% 1,000 ML 70 ML IV (22:18)
[2023-05-18] MEDS: azithromycin 500 MG in sodium chloride 0.9% 250 ML 250 MG IV (22:19)
[2023-05-18] MEDS: famotidine 20 mg/2 mL INJ IVP (22:24)
[2023-05-18] MEDS: guaiFENesin 100 mg/5 mL UDC 10 mL 400 MG PO (23:26)
[2023-05-19] VITALS (12 sets, daily range): BP systolic 116–147; BP diastolic 59–89; PULSE 72–103; RESP 15–22; TEMP 36.4–36.8; O2SAT 91–98
[2023-05-19] MEDS: atorvastatin 40 mg Tablet 20 MG PO (06:01)
[2023-05-19] MEDS: sertraline 100 mg Tablet 200 MG PO (06:01)
[2023-05-19] MEDS: rivaroxaban 10 mg Tablet 20 MG PO (06:01)
[2023-05-19 06:23] LABS: Basophils % 0.5 %; Eosinophils % 0.1 %; Hematocrit 35.5 % (37-53); Lymphocytes # 0.5 10^3/uL (0.8-4.8); Lymphocytes % 6.2 %; Mean Corpuscular HGB Conc 32.4 g/dL (30-55); Mean Corpuscular Hemoglobin 28.8 pg (27-33); Mean Corpuscular Volume 88.8 fl (82-101); Mean Platelet Volume 10.9 fL (7.4-10.4); Monocytes # 0.1 10^3/uL (0.2-0.9); Monocytes % 1.7 %; Neutrophils # 6.71 10^3/uL (1.8-7.7); Neutrophils % 90.3 %; Nucleated Red Blood Cells % 0 %; Platelet Count 194 10^3/cmm (157-399); Red Cell Distribution Width 14.5 % (12.1-15.1); White Blood Count 7.44 10^3/uL (3.29-11.43)
[2023-05-19 06:43] LABS: Alanine Aminotransferase 12 U/L (0-41); Albumin Level 4.2 g/dL (3.5-5.2); Alkaline Phosphatase 71 U/L (40-130); Anion Gap 13.5 (5-19); Aspartate Amino Transferase 18 U/L (0-40); Blood Urea Nitrogen 18 mg/dL (8-23); Calcium 9.1 mg/dL (8.5-10.5); Carbon Dioxide 26 mmol/L (22-29); Chloride 104 mmol/L (98-107); Globulin 2.1 g/dL (1.3-4.6); Glomerular Filtration Rate 95.8 mL/min (90-130); Glucose 142 mg/dL (65-115); Osmolality Calculated 292 mOsm/kg (285-295); Phosphorus 3.5 mg/dL (2.5-4.5); Potassium 4.5 mmol/L (3.5-5.1); Sodium 139 mmol/L (136-145); Total Bilirubin 0.3 mg/dL (0.15-1.2); Total Protein 6.3 g/dL (6.6-8.7)
[2023-05-19] MEDS: ipratropium-albuterol 3 mL Neb INHALATION ×3 (08:44→20:44)
[2023-05-19] MEDS: BuSPIRONE 10 mg Tablet 20 MG PO ×3 (09:37→20:56)
[2023-05-19] MEDS: gabapentin 300 mg Capsule PO ×3 (09:37→20:56)
[2023-05-19] MEDS: acetaminophen 325 mg Tablet 650 MG PO (10:23)
[2023-05-19] MEDS: famotidine 20 mg/2 mL INJ IVP ×2 (10:25→22:51)
--- NOTE | 2023-05-19 10:35 | P.PN_ITS ---
Subjective Subjective: He is coughing, wheezing, with dyspnea, he is not bringing any phlegm up. Feels like there should be some coming up. Asked for help with expectoration. Vitals/I&O/Wt Last Vital Signs Temp 97.5 F L 05/19/23 08:00 Pulse 95 05/19/23 08:47 Resp 20 H 05/19/23 08:47 BP 133/79 05/19/23 08:00 Pulse Ox 98 05/19/23 08:47 O2 Del Method Nasal Cannula 05/19/23 08:47 O2 Flow Rate 2 05/19/23 08:47 05/18/23 05/19/23 05/19/23 22:59 06:59 14:59 Intake Total 251.28 / 253.28 481.28 / 481.28 Output Total 850 / 850 Balance -598.72 / -596.72 481.28 / 481.28 Weight last 48 hrs Weight 115.666 kg Physical Exam Const: COMMON NORMALS: patient oriented x3 and alert GENERAL APPEARANCE: cooperative ORIENTATION/CONSCIOUSNESS: Yes awake HENMT: COMMON NORMALS: oropharynx normal Neck/C-Spine: COMMON NORMALS: no JVD Resp: COMMON NORMALS: normal respiratory effort AUSCULTATION: wheezes and diminished lung sounds Cardio: COMMON NORMALS: no JVD, regular rhythm, S1 normal heart sound present, S2 normal heart sound present and No murmurs present (Cardio) RHYTHM: regular rhythm HEART SOUNDS: S1 normal heart sound present and S2 normal heart sound present GI: COMMON NORMALS: Normal to inspection, nondistended, normoactive bowel sounds present, Soft to palpation and non-tender PALPATION: Yes Soft to palpation Extremity: COMMON NORMALS: no joint enlargement and no pedal edema Neuro: COMMON NORMALS: patient oriented x3 and moves all extremities SENSORIUM/ORIENTATION: Yes alert Skin: COMMON NORMALS: no rashes or lesions noted GENERAL SKIN EXAM: no rashes or lesions noted Data 05/19/23 06:16 05/19/23 06:16 A&P Assessment and plan (1) Acute hypoxic respiratory failure: (2) Acute exacerbation of chronic obstructive airways disease: Plan 67-year-old male with a history of COPD not on supplemental oxygen at home active smoker left lower extremity DVT on Xarelto depression anxiety presented with complaint of worsening shortness of breath and was found to be hypoxic likely secondary to acute hypoxic respiratory failure secondary to COPD exac erbation Continue treatment of moderate unimproved COPD exacerbation. Continue IV Solu- Medrol 80 mg every 8 hours Add scheduled DuoNebs in addition to the ordered as needed He is on IV azithromycin 500 mg daily Add Mucinex, flutter valve. Stop IV fluid. Reviewed CBC, CMP, ABG. Chest x-ray. Discussed with case management. Reviewed rapid COVID-19. Obtain respiratory viral panel. He will be needing 2 L nasal cannula oxygen. Continue supplemental oxygen to keep saturations more than 90%. Wean down as tolerating. He is on Xarelto for history of DVT, no further DVT prophylaxis needed He is full code for now Attestations Medical Necessity Statement*: Continue admission for assessment management of moderate and improved COPD exacerbation. and High MDM includes amount and/or complexity of data reviewed/ordered [ resulted lab(s)/test(s) and other healthcare professional discussion] as documented Diagnoses Acute hypoxic respiratory failure J96.01 Acute exacerbation of chronic obstructive airways disease J44.1
--- NOTE | 2023-05-19 11:21 | PC.CHAP ---
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 rod tape operator visit [] Patient/Family/Request visit [] Outpatient visit [] Follow-up visit [] Physician referral [] Code/Alert [x] Routine visit [] Staff referral [] Actively dying [] Patient sleeping [] Family support [] [] Out of room [] Palliative care [] [] Receiving care in room [] Pre-surgical visit [] Trauma [] Long length of stay [] ICU visit [] Other: Relational/Emotional Strength [] Patient feels connected with others/family/visitors/staff [] Distress [] Loneliness/isolation [] Abandonment Spirituality of Patient [] Person of [place] [] Attends Quaker of their [place] [] Believes in Prayer [] Reads Bible or Anglican materials [] There are Spiritual issues to be addressed Cash Management Clerk Interventions [x] Prayer [x] Active listening [] Non-anxious presence [] Spiritual/emotional support [] Crisis/trauma care [x] Spiritual counseling [] Bereavement support [] Provided bereavement packet [] Provided Bible/devotional materials [] Provided toy/stuffed animal, coloring book to patient or family member [] Provided Communion [] Anointing/[place] [] Salvation [] Completed spiritual assessment [] Other: Impact on Illness or Injury [] Angry [] Fearful [] Anxious [] Often cries [] Exhaustion [] Unable to work [] Unable to attend restorationist [] Unable to walk/stand [] Unable to read [] Unable to drive [] Unable to eat/drink [] Unable to sleep [] Unable to be with family [] Patient intubated [] Other: Summary patient seemed a little nervous, especially when talking about the Lord Time spent with patient 10 min
[2023-05-19] MEDS: azithromycin 500 MG in sodium chloride 0.9% 250 ML 250 MG IV (22:51)
[2023-05-20] VITALS (9 sets, daily range): BP systolic 124–149; BP diastolic 60–72; PULSE 62–82; RESP 16–19; TEMP 36.4–36.6; O2SAT 94–97
[2023-05-20 01:50] LABS: Adenovirus Not Detected (NOT DETECT); Chlamydia Pneumoniae Not Detected (NOT DETECT); Coronavirus 229E,HKU1,NL63,OC4 Not Detected (NOT DETECT); Human Metapneumovirus Not Detected (NOT DETECT); Human Rhinovirus/Enterovirus Not Detected (NOT DETECT); Influenza A Not Detected (NOT DETECT); Influenza A H1 Not Detected (NOT DETECT); Influenza A H1-2009 Not Detected (NOT DETECT); Influenza A H3 Not Detected (NOT DETECT); Influenza B Not Detected (NOT DETECT); Mycoplasma Pneumoniae Not Detected (NOT DETECT); Parainfluenza Virus Type 1 Not Detected (NOT DETECT); Parainfluenza Virus Type 2 Not Detected (NOT DETECT); Parainfluenza Virus Type 3 Not Detected (NOT DETECT); Parainfluenza Virus Type 4 Not Detected (NOT DETECT); Respiratory Syncytial Virus A Not Detected (NOT DETECT); Respiratory Syncytial Virus B Not Detected (NOT DETECT); SARS-COV-2 Not Detected (NOT DETECT)
[2023-05-20] MEDS: atorvastatin 40 mg Tablet 20 MG PO (05:28)
[2023-05-20] MEDS: sertraline 100 mg Tablet 200 MG PO (05:28)
[2023-05-20] MEDS: rivaroxaban 10 mg Tablet 20 MG PO (05:29)
[2023-05-20] MEDS: ipratropium-albuterol 3 mL Neb INHALATION ×2 (06:04→09:14)
[2023-05-20] MEDS: gabapentin 300 mg Capsule PO (09:54)
[2023-05-20] MEDS: BuSPIRONE 10 mg Tablet 20 MG PO (09:54)
[2023-05-20] MEDS: famotidine 20 mg/2 mL INJ IVP (09:55)
--- NOTE | 2023-05-20 10:33 | PM.DCS ---
Discharge Providers Date of Admission: 05/18/23 19:35 Date of Discharge: May 20, 2023 Attending Provider at Admission: Sherrell Brennan MD Attending Provider at Discharge: Hema Rowland Primary Care Provider: Dilshad Anderson DO Diagnoses at Discharge Discharge Diagnosis (1) Acute hypoxic respiratory failure: Status: Acute (2) Acute exacerbation of chronic obstructive airways disease: Status: Acute Reason for Visit Reason for Visit: bp high, sob Hospital Course Hospital Course Pleasant 67 gentleman with history of COPD, not normally on oxygen at home, history of VTE on Xarelto, anxiety, other medical problems was admitted after presenting with dyspnea, severe dyspnea on exertion, worsening shortness of breath over preceding 2 days, nonproductive cough, wheezing. Without evidence of pneumonia on chest x-ray. On presentation requiring several liters of oxygen support. Was admitted for treatment of COPD exacerbation, received IV steroids, azithromycin, neb treatments, expectorants. Flutter valve. Respiratory viral panel negative. His condition improved, today he is feeling better. Wheezing has nearly resolved and air entry is improved. She will complete prednisone taper at discharge, course of azithromycin. Continue breathing treatments at home. States that he has not medication. Given refill on Mucinex as well. Encouraged to continue flutter valve. He is encouraged to stop smoking entirely. Please follow-up continued improvement. He is asked to follow-up with pulmonology as well. Physical Exam Const: COMMON NORMALS: patient oriented x3 and alert GENERAL APPEARANCE: cooperative ORIENTATION/CONSCIOUSNESS: Yes awake HENMT: COMMON NORMALS: oropharynx normal Neck/C-Spine: COMMON NORMALS: no JVD Resp: COMMON NORMALS: normal respiratory effort AUSCULTATION: no wheezes and diminished lung sounds (Improved) Cardio: COMMON NORMALS: no JVD, regular rhythm, S1 normal heart sound present, S2 normal heart sound present and No murmurs present (Cardio) RHYTHM: regular rhythm HEART SOUNDS: S1 normal heart sound present and S2 normal heart sound present GI: COMMON NORMALS: Normal to inspection, nondistended, normoactive bowel sounds present, Soft to palpation and non-tender PALPATION: Yes Soft to palpation Extremity: COMMON NORMALS: no joint enlargement and no pedal edema Neuro: COMMON NORMALS: patient oriented x3 and moves all extremities SENSORIUM/ORIENTATION: Yes alert Skin: COMMON NORMALS: no rashes or lesions noted GENERAL SKIN EXAM: no rashes or lesions noted Discharge Data Studies Completed and Pending Completed Studies During Hospitalization Category Date Time Status XR chest 1V portable [id number] Stat Exams 05/18/23 17:44 Completed Radiology Impressions Chest X-Ray 05/18/23 17:44 IMPRESSION: No acute findings. Laboratory Results WBC 7.44 10^3/uL (3.29-11.43) 05/19/23 06:16 RBC 4.00 10^6/uL (3.85-5.65) 05/19/23 06:16 Hgb 11.50 g/dL (11.27-16.99) 05/19/23 06:16 Hct 35.5 % (37-53) L 05/19/23 06:16 MCV 88.8 fl (82-101) 05/19/23 06:16 MCH 28.8 pg (27-33) 05/19/23 06:16 MCHC 32.4 g/dL (30-55) 05/19/23 06:16 RDW 14.5 % (12.1-15.1) 05/19/23 06:16 Plt Count 194 10^3/cmm (157-399) 05/19/23 06:16 MPV 10.9 fL (7.4-10.4) H 05/19/23 06:16 Neut % (Auto) 90.3 % 05/19/23 06:16 Lymph % (Auto) 6.2 % 05/19/23 06:16 [place] % (Auto) 1.7 % 05/19/23 06:16 Eos % (Auto) 0.1 % 05/19/23 06:16 Baso % (Auto) 0.5 % 05/19/23 06:16 Neut # (Auto) 6.71 10^3/uL (1.8-7.7) 05/19/23 06:16 Lymph # (Auto) 0.5 10^3/uL (0.8-4.8) L 05/19/23 06:16 [place] # (Auto) 0.1 10^3/uL (0.2-0.9) L 05/19/23 06:16 Eos # (Auto) 0.0 10^3/uL (0.0-0.8) 05/19/23 06:16 Baso # (Auto) 0.0 10^3/uL (0.0-0.1) 05/19/23 06:16 Nucleated RBC % (auto) 0 % 05/19/23 06:16 Nucleated RBCs # 0.0 /100WBC 05/19/23 06:16 Specimen Type Arterial 05/18/23 18:17 Sample Site Radial, left 05/18/23 18:17 ABG pH 7.37 (7.35-7.45) 05/18/23 18:17 ABG pCO2 47.1 mmHg (35-45) H 05/18/23 18:17 ABG pO2 70.0 mmHg (80.0-100.0) L 05/18/23 18:17 ABG HCO3 27.3 mmol/L (22-26) H 05/18/23 18:17 ABG Base Excess 1.5 mmol/L (-2.0-2.0) 05/18/23 18:17 Tarun Test Pos 05/18/23 18:17 Hematocrit 38.8 % (42-52) L 05/18/23 18:17 Hgb O2 Saturation 92.9 % (95-100) L 05/18/23 18:17 Carboxyhemoglobin 1.9 %THgb (0.4-20.1) 05/18/23 18:17 Methemoglobin 0.5 % (0.4-1.5) 05/18/23 18:17 Total Hemoglobin 12.7 g/dL (14-18) L 05/18/23 18:17 O2 Delivery Device Nc 05/18/23 18:17 O2 Liters/Min 2.0 % 05/18/23 18:17 FiO2 28.0 % 05/18/23 18:17 Aircraft Engine Dismantler ID Cak 05/18/23 18:17 Sodium 139 mmol/L (136-145) 05/19/23 06:16 Potassium 4.5 mmol/L (3.5-5.1) 05/19/23 06:16 Chloride 104 mmol/L (98-107) 05/19/23 06:16 Carbon Dioxide 26 mmol/L (22-29) 05/19/23 06:16 Anion Gap 13.5 (5-19) 05/19/23 06:16 BUN 18 mg/dL (8-23) 05/19/23 06:16 Creatinine 0.8 mg/dL (0.7-1.2) 05/19/23 06:16 GFR Calculation 95.8 mL/min (90-130) 05/19/23 06:16 Glucose 142 mg/dL (65-115) H 05/19/23 06:16 Calculated Osmolality 292 mOsm/kg (285-295) 05/19/23 06:16 Calcium 9.1 mg/dL (8.5-10.5) 05/19/23 06:16 Phosphorus 3.5 mg/dL (2.5-4.5) 05/19/23 06:16 Magnesium 2.0 mg/dL (1.7-2.3) 05/19/23 06:16 Total Bilirubin 0.3 mg/dL (0.15-1.2) 05/19/23 06:16 AST 18 U/L (0-40) 05/19/23 06:16 ALT 12 U/L (0-41) 05/19/23 06:16 Alkaline Phosphatase 71 U/L (40-130) 05/19/23 06:16 NT-Pro-B Natriuret Pep 44 pg/mL (0-125) 05/18/23 18:00 Total Protein 6.3 g/dL (6.6-8.7) L 05/19/23 06:16 Albumin 4.2 g/dL (3.5-5.2) 05/19/23 06:16 Globulin 2.1 g/dL (1.3-4.6) 05/19/23 06:16 Nasal Influ A H1 2008 PCR Not detected (NOT DETECT) 05/20/23 00:03 Adenovirus (PCR) Not detected (NOT DETECT) 05/20/23 00:03 C. pneumoniae DNA (PCR) Not detected (NOT DETECT) 05/20/23 00:03 Coronavirus 229E (PCR) Not detected (NOT DETECT) 05/20/23 00:03 Human Metapneumovir PCR Not detected (NOT DETECT) 05/20/23 00:03 Influenza A (H1) PCR Not detected (NOT DETECT) 05/20/23 00:03 Influenza A (H3) PCR Not detected (NOT DETECT) 05/20/23 00:03 Influenza Type A (PCR) Not detected (NOT DETECT) 05/20/23 00:03 Influenza Type B (PCR) Not detected (NOT DETECT) 05/20/23 00:03 M. pneumoniae (PCR) Not detected (NOT DETECT) 05/20/23 00:03 Parainfluenza 1 (PCR) Not detected (NOT DETECT) 05/20/23 00:03 Parainfluenza 2 (PCR) Not detected (NOT DETECT) 05/20/23 00:03 Parainfluenza 3 (PCR) Not detected (NOT DETECT) 05/20/23 00:03 Parainfluenza 4 (PCR) Not detected (NOT DETECT) 05/20/23 00:03 RSV Type A (PCR) Not detected (NOT DETECT) 05/20/23 00:03 RSV Type B (PCR) Not detected (NOT DETECT) 05/20/23 00:03 Entero/Rhino (PCR) Not detected (NOT DETECT) 05/20/23 00:03 SARS-CoV-2 (PCR) Not detected (NOT DETECT) 05/20/23 00:03 SARS-CoV-2 Ag (Rapid) negative (Negative) 05/18/23 18:00 Vitals Last Vital Signs Temp 97.6 F 05/20/23 08:00 Pulse 71 05/20/23 09:16 Resp 18 05/20/23 09:16 BP 149/72 05/20/23 08:00 Pulse Ox 95 05/20/23 09:51 O2 Del Method Room Air 05/20/23 09:16 O2 Flow Rate 2 05/20/23 06:04 Discharge Plan Discharge Patient Disposition: Home Condition: Stable Prescriptions: New prednisone 20 mg tablet 20 mg PO DAILY Qty: 19 0RF Rx Instructions: 3 tab daily for 3 days, then 2 tab for 3 days, then 1 tab for 3 days, then 1/2 tab for 2 days. azithromycin 250 mg tablet 250 mg PO DAILY 5 Days Qty: 5 0RF Continued rivaroxaban 20 mg tablet 20 mg PO QAM Rx Instructions: must administer with evening meal sertraline 100 mg tablet 200 mg PO QAM atorvastatin 40 mg tablet 20 mg PO QAM ipratropium-albuterol 0.5 mg-3 mg(2.5 mg base)/3 mL solution for nebulization 3 ml inhalation Q6H PRN (Reason: shortness of breath or wheezing) Qty: 180 3RF Breztri Aerosphere 160-9-4.8 mcg/actuation HFA aerosol inhaler 2 inh inhalation BID Qty: 10.7 3RF clotrimazole-betamethasone 1-0.05 % Cream 1 applic TOPICAL PRN PRN (Reason: Wound Care) bismuth subsalicylate 525 mg/15 mL Suspension 525 mg PO Q4H PRN (Reason: Nausea) Rx Instructions: do not exceed 8 doses in a 24 hour period naproxen 500 mg tablet 500 mg PO BID PRN (Reason: Pain) Vitamin D3 25 mcg (1,000 unit) Tablet 25 mcg PO DAILY guaifenesin 400 mg tablet 400 mg PO Q4H PRN (Reason: congestion) Qty: 30 0RF acetaminophen 500 mg Tablet 1,000 mg PO Q6H PRN (Reason: Pain) levalbuterol HCl 1.25 mg/3 mL Solution For Nebulization 1.25 mg INHALATION .UP TO 6 TIMES A DAY albuterol sulfate 90 mcg/actuation HFA aerosol inhaler 2 inh INHALATION Q6H PRN (Reason: shortness of breath or wheezing) buspirone 10 mg Tablet 20 mg PO TID trazodone 50 mg Tablet 50 mg PO DAILY gabapentin 300 mg capsule 300 mg PO TID Discharge Orders: Discharge Order (Routine); Ordered 05/20/23 Ordered By: Hema Rowland Referrals: Dilshad Anderson DO [Primary Care Provider] - 4-7 days Datar,Ronal Garcia MD [Physician] - 2 weeks (COPD exacerbation) Discharge Diet: Cardiac and Diabetic Patient Instructions: Prednisone (By mouth), Azithromycin (By mouth), How to Stop Smoking (GEN), Cigarette Smoking and Your Health (GEN), COPD (Chronic Obstructive Pulmonary Disease) (GEN) Activity Restrictions/Additional Instructions: Please avoid smoking entirely. Continue smoking will lead to continued worsening of lung function, in addition to other risks including heart attack, stroke, several different cancers. Complete prednisone taper and antibiotic course for COPD exacerbation. Continue breathing treatments at home. Follow-up with your primary provider for reassessment of continued improvement. Follow-up with your distribution collection operator. Use Mucinex as needed to help bring up phlegm. Continue to use flutter valve. Discharge Attestations Time Spent in Discharge Care*: greater than 30 min Quality Metrics Clinical Quality Measures [ No reported AMI, CVA or VTE this stay] Coding Level of Care Code 41396 Total time (in minutes) for Discharge: 35 Diagnoses Acute hypoxic respiratory failure J96.01 Acute exacerbation of chronic obstructive airways disease J44.1
--- NOTE | 2023-05-20 13:53 | PC.NURSE ---
patient verbalized understanding of discharge instructions, home medications, smoking cessation, and follow up appointments. patient refused to wait for primary care doctor follow up appointment to be arranged and stated that he will make an appointment.
== END 2023-05-20 13:00 | disposition home or self-care (01) | DRG 190 ==
LOC: ER 19:32 → MEDSURG 20:12
PROVIDERS: Admitting Provider Internal Medicine; Emergency Provider Emergency Medicine; PCP Emergency Medicine Emergency Medical Services; Visit Provider Internal Medicine
DX: J44.1 Chronic obstructive pulmonary disease with (acute) exacerbation (principal); J96.01 Acute respiratory failure with hypoxia; Z86.718 Personal history of other venous thrombosis and embolism; Z79.01 Long term (current) use of anticoagulants; F41.9 Anxiety disorder, unspecified; Z79.891 Long term (current) use of opiate analgesic; F17.210 Nicotine dependence, cigarettes, uncomplicated; R19.7 Diarrhea, unspecified; E78.5 Hyperlipidemia, unspecified; Z85.46 Personal history of malignant neoplasm of prostate; G47.33 Obstructive sleep apnea (adult) (pediatric); Z99.89 Dependence on other enabling machines and devices; F43.10 Post-traumatic stress disorder, unspecified; Z86.711 Personal history of pulmonary embolism; Z90.79 Acquired absence of other genital organ(s); Z20.822 Contact with and (suspected) exposure to COVID-19
CPT/HCPCS: 36415; 36600; 71045; 80053; 82805; 83735; 83880; 84100; 85025; 87426; 87486; 87581; 87633; 93005; 94640; 94664; 94760; 96365; 96375; 99285; J0456; J2930; J3490; J7030; J7050; J7613

== ENCOUNTER 2023-06-14 04:38 | Inpatient (IN) | payer OTHER, SELFPAY ==
[2023-06-14] VITALS (16 sets, daily range): BP systolic 116–147; BP diastolic 67–95; PULSE 80–103; RESP 14–32; TEMP 36.4–36.8; O2SAT 88–99; BMI 29.6
--- NOTE | 2023-06-14 04:46 | ECG_ITS ---
[facility] Test Date: 2023-06-14 Pat Name: Jaswant Macdonald Department: Room: Gender: Male Cable Swager: : 1955 Requested By: Niranjan Og Order Number: [id number] Stephanie MD: Scar Wilson M.D. Measurements Intervals [place] Rate: 98 P: 85 PA: 140 QRS: 60 QRSD: 110 T: 64 QT: 339 QTc: 433 Interpretive Statements SINUS RHYTHM POSSIBLE LATERAL MYOCARDIAL INFARCTION , OF INDETERMINATE AGE [30 ms Q WAVE IN I/aVL/V5/V6] PROBABLE INFERIOR MYOCARDIAL INFARCTION , PROBABLY OLD [35 ms Q WAVE IN II/aVF] Compared to ECG 05/18/2023 18:02:52 Myocardial infarct finding now present Electronically Signed On 06-14-2023 9:54:07 FIELD ENGINEER by Scar Wilson M.D. [email or web address]
--- NOTE | 2023-06-14 04:50 | XRR_ITS ---
PROCEDURE INFORMATION: Exam: XR Chest Exam date and time: 06/14/2023 4:52 AM Age: 67 years old Clinical indication: Shortness of breath; Patient HX: Severe SOB. History of copd. TECHNIQUE: Imaging protocol: Radiologic exam of the chest. Views: 1 view. COMPARISON: CR (CHEST, ) 05/18/2023 5:49 PM FINDINGS: Lungs: Unremarkable. No consolidation. Pleural spaces: Unremarkable. No pleural effusion. No pneumothorax. Heart/Mediastinum: Unremarkable. No cardiomegaly. Bones/joints: Unremarkable. XR/XR chest 1V portable [id number] IMPRESSION: No acute findings.
--- NOTE | 2023-06-14 04:56 | ED_ITS ---
HPI - SOB/Dyspnea General: Chief Complaint: Shortness of Breath/Dyspnea Stated Complaint: SOB Time Seen by Provider: 06/14/23 04:44 History of Present Illness: HPI Narrative: 67-year-old male with a history of COPD. He presents with worsening shortness of breath over 3 days or so. He was much worse this morning, so he called an ambulance. He has had minimal sputum production. He has been coughing. He received DuoNeb, albuterol, and 4 mg of Decadron in route to the hospital. He states that he has had very little improvement. No fever. No chest pain. No increased swelling. He says that he is quite anxious. Associated symptoms: Deny abdominal pain, chest pain, fever(s), palpitations or vomiting Review of Systems Const: Denies: fever(s) ENMT: Denies: throat pain Card: Denies: chest pain or palpitations Resp: Reports: dyspnea, non-productive cough and wheezing GI: Denies: abdominal pain, vomiting or diarrhea Skin/Breast: Denies: rash Psych: Reports: anxiety PFSH ED PFSH: Medical History Acute exacerbation of chronic obstructive airways disease Anxiety related to PTSD, can be severe, takes benzodiazepines as needed and buspar scheduled Anxiety Chronic anticoagulation xarelto, for history of PE in 2019 COPD (chronic obstructive pulmonary disease) COPD (chronic obstructive pulmonary disease) Erectile dysfunction Exertional dyspnea Fracture of rib (~07/2022) right 10th rib Hearing loss History of cardiovascular stress test 04/2022 false positive History of PFTs 06/2022 Severe airflow obstruction, no post bronchodilator study, lung volumes not measured, moderate gas transfer defect. Consistent with obstructive ventilatory disease. History of smoking 70-100 pack years, quit ~03/2022 Hyperlipidemia Malignant neoplasm of prostate s/p TURP BETH on CPAP Osteoarthritis PTSD (post-traumatic stress disorder) Pulmonary embolism Unprovoked, 2019, on chronic anticoagulation with rivaroxaban, CTA chest 07/2022 with no focal PE identified Surgical History History of appendectomy History of cardiac catheterization 05/2022 [place], no obstructive CAD History of cholecystectomy 2006 History of colonoscopy 2013 no abnormalities History of inguinal hernia repair right History of repair of congenital cleft palate History of thoracotomy trauma from left rib fracture while on anticoagulation History of tonsillectomy History of transurethral resection of prostate 2014, for prostate cancer History of vasectomy with subsequent failed reversal Family History Father Stroke Dementia CAD (coronary artery disease) Other Anxiety Social History Smoking and tobacco/nicotine status: former use of tobacco/nicotine (1 cig/day) Quit status (tobacco/nicotine): has quit using Former quit date comment: 03/2022 Alcohol intake: current Alcohol intake frequency: few times a week Alcohol type: hard liquor Substance/Drug Use: current Substance/Drug use frequency: Special occassions/opportunity only Household members: spouse Marital status: service: Yes status details: 15 years [employer], 5 years [employer], 100% service connected Physical Exam Const: GENERAL APPEARANCE: cooperative, in distress, anxious and ill appearing NUTRITIONAL APPEARANCE: obese HENMT: COMMON NORMALS: normocephalic, atraumatic and Normal external nose present HEAD & SCALP: normocephalic and atraumatic FACE & SINUS: normal facial exam and face symmetric NOSE: Normal external nose present Eye: COMMON NORMALS: Equal, round and reactive pupils present and EOMs intact bilaterally PUPIL: Yes Equal, round and reactive pupils present Neck/C-Spine: GENERAL: Yes trachea midline Chest: CHEST: Yes Symmetrical chest wall rise Resp: EFFORT & INSPECTION: No able to speak in complete sentences, Yes sy mmetric chest movement, Yes tachypneic and Yes labored AUSCULTATION: wheezes and diminished lung sounds Cardio: COMMON NORMALS: regular rhythm RATE: tachycardic RHYTHM: regular rhythm GI: COMMON NORMALS: Normal to inspection, nondistended, normoactive bowel sounds present Extremity: COMMON NORMALS: no pedal edema Neuro: CINTHIA COMA SCALE: document GCS findings Cinthia coma scale eye opening: Spontaneous Cinthia coma scale verbal response: Orientated Morrison coma scale motor response: Obey commands Cinthia coma scale total score: 15 SENSORY EXAM: Yes extremities (intact) Psych: COMMON NORMALS: speech normal SPEECH: Yes normal speech Skin: COMMON NORMALS: no rashes or lesions noted GENERAL SKIN EXAM: no ra shes or lesions noted Course Vital Signs: Vital signs: Vital Signs Temperature 98.0 F 06/14/23 04:40 Pulse Rate 93 06/14/23 05:34 Respiratory Rate 28 H 06/14/23 05:34 Blood Pressure 137/69 06/14/23 04:56 Pulse Oximetry 98 06/14/23 05:34 Oxygen Delivery Me thod BiPAP 06/14/23 05:34 Oxygen Flow Rate 3 06/14/23 04:56 Fraction of Inspir ed Oxygen 35 06/14/23 05:34 MDM - SOB/Dyspnea Medical Decision Making 67-year-old male in respiratory distress. Blood gas taken on arrival shows a pH of 7.31, PCO2 of 56, PO2 of 61. This is on 2 L a minute. He was placed on BiPAP. He is mildly tachycardic. He is very wheezy on exam. He is given Solu-Medrol, another DuoNeb treatment, CBC is normal. Chest x-ray fails to reveal an infiltrate. Other laboratory is pending. EKG shows sinus rhythm with a normal axis and intervals. There are no acute ST wave changes. He will be admitted. Hospitalist consulted from the ER. She will see the patient. Lab Data 06/14/23 04:51 06/14/23 04:51 Labs/Radiology: Laboratory Results WBC 6.59 10^3/uL (3.29-11.43) 06/14/23 04:51 RBC 4.28 10^6/uL (3.85-5.65) 06/14/23 04:51 Hgb 12.60 g/dL (11.27-16.99) 06/14/23 04:51 Hct 39.2 % (37-53) 06/14/23 04:51 MCV 91.6 fl (82-101) 06/14/23 04:51 MCH 29.4 pg (27-33) 06/14/23 04:51 MCHC 32.1 g/dL (30-55) 06/14/23 04:51 RDW 14.4 % (12.1-15.1) 06/14/23 04:51 Plt Count 219 10^3/cmm (157-399) 06/14/23 04:51 MPV 10.5 fL (7.4-10.4) H 06/14/23 04:51 Neut % (Auto) 61.4 % 06/14/23 04:51 Lymph % (Auto) 15.6 % 06/14/23 04:51 [place] % (Auto) 8.0 % 06/14/23 04:51 Eos % (Auto) 12.4 % 06/14/23 04:51 Baso % (Auto) 1.2 % 06/14/23 04:51 Neut # (Auto) 4.04 10^3/uL (1.8-7.7) 06/14/23 04:51 Lymph # (Auto) 1.0 10^3/uL (0.8-4.8) 06/14/23 04:51 [place] # (Auto) 0.5 10^3/uL (0.2-0.9) 06/14/23 04:51 Eos # (Auto) 0.8 10^3/uL (0.0-0.8) 06/14/23 04:51 Baso # (Auto) 0.1 10^3/uL (0.0-0.1) 06/14/23 04:51 Nucleated RBC % (auto) 0 % 06/14/23 04:51 Nucleated RBCs # 0.0 /100WBC 06/14/23 04:51 Specimen Type Arterial 06/14/23 04:55 Sample Site Brachial, right 06/14/23 04:55 ABG pH 7.31 (7.35-7.45) L 06/14/23 04:55 ABG pCO2 55.9 mmHg (35-45) H 06/14/23 04:55 ABG pO2 60.9 mmHg (80.0-100.0) L 06/14/23 04:55 ABG HCO3 28.3 mmol/L (22-26) H 06/14/23 04:55 ABG Base Excess 1.0 mmol/L (-2.0-2.0) 06/14/23 04:55 Tarun Test N/a 06/14/23 04:55 Hematocrit 39.2 % (42-52) L 06/14/23 04:55 O2 Delivery Device Nc 06/14/23 04:55 O2 Liters/Min 2.0 % 06/14/23 04:55 Disability Hearing Officer ID [email or web address] 06/14/23 04:55 Sodium 144 mmol/L (136-145) 06/14/23 04:51 Potassium 4.2 mmol/L (3.5-5.1) 06/14/23 04:51 Chloride 107 mmol/L (98-107) 06/14/23 04:51 Carbon Dioxide 27 mmol/L (22-29) 06/14/23 04:51 Anion Gap 14.2 (5-19) 06/14/23 04:51 BUN 12 mg/dL (8-23) 06/14/23 04:51 Creatinine 0.9 mg/dL (0.7-1.2) 06/14/23 04:51 GFR Calculation 83.7 mL/min (90-130) L 06/14/23 04:51 Glucose 100 mg/dL (65-115) 06/14/23 04:51 Calculated Osmolality 298 mOsm/kg (285-295) H 06/14/23 04:51 Lactic Acid 0.8 mmol/L (0.5-2.2) 06/14/23 04:57 Calcium 9.0 mg/dL (8.5-10.5) 06/14/23 04:51 Total Bilirubin 0.4 mg/dL (0.15-1.2) 06/14/23 04:51 AST 21 U/L (0-40) 06/14/23 04:51 ALT 20 U/L (0-41) 06/14/23 04:51 Alkaline Phosphatase 67 U/L (40-130) 06/14/23 04:51 NT-Pro-B Natriuret Pep 73 pg/mL (0-125) 06/14/23 04:51 Total Protein 6.6 g/dL (6.6-8.7) 06/14/23 04:51 Albumin 4.6 g/dL (3.5-5.2) 06/14/23 04:51 Globulin 2.0 g/dL (1.3-4.6) 06/14/23 04:51 XR interpretation done by ED provider, pending radiology final review Critical Care Time Critical Care Time: Critical Care Time: Yes Total Critical Care Time: 35 Attestation: This case had a high probability of a clinically significant, sudden, or life threatening deterioration of this patient's condition which required my full and direct attention, intervention and personal management. Time is independent of any procedures performed Discharge Plan Discharge Patient Disposition: Admitted As Inpatient Clinical Impression: Acute exacerbation of chronic obstructive airways disease, Acute respiratory failure with hypoxia and hypercapnia Condition: Serious Prescriptions: No Action rivaroxaban 20 mg tablet 20 mg PO QAM Rx Instructions: must administer with evening meal sertraline 100 mg tablet 200 mg PO QAM atorvastatin 40 mg tablet 20 mg PO QAM ipratropium-albuterol 0.5 mg-3 mg(2.5 mg base)/3 mL solution for nebulization 3 ml inhalation Q6H PRN (Reason: shortness of breath or wheezing) Qty: 180 3RF Breztri Aerosphere 160-9-4.8 mcg/actuation HFA aerosol inhaler 2 inh inhalation BID Qty: 10.7 3RF clotrimazole-betamethasone 1-0.05 % Cream 1 applic TOPICAL PRN PRN (Reason: Wound Care) bismuth subsalicylate 525 mg/15 mL Suspension 525 mg PO Q4H PRN (Reason: Nausea) Rx Instructions: do not exceed 8 doses in a 24 hour period naproxen 500 mg tablet 500 mg PO BID PRN (Reason: Pain) Vitamin D3 25 mcg (1,000 unit) Tablet 25 mcg PO DAILY prednisone 20 mg tablet 20 mg PO DAILY Qty: 19 0RF Rx Instructions: 3 tab daily for 3 days, then 2 tab for 3 days, then 1 tab for 3 days, then 1/2 tab for 2 days. guaifenesin 400 mg tablet 400 mg PO Q4H PRN (Reason: congestion) Qty: 30 0RF acetaminophen 500 mg Tablet 1,000 mg PO Q6H PRN (Reason: Pain) levalbuterol HCl 1.25 mg/3 mL Solution For Nebulization 1.25 mg INHALATION .UP TO 6 TIMES A DAY albuterol sulfate 90 mcg/actuation HFA aerosol inhaler 2 inh INHALATION Q6H PRN (Reason: shortness of breath or wheezing) buspirone 10 mg Tablet 20 mg PO TID trazodone 50 mg Tablet 50 mg PO DAILY gabapentin 300 mg capsule 300 mg PO TID Referrals: Dilshad Anderson DO [Primary Care Provider] - Coding Level of Care Code ED Industrial [employer]s Supervisor for Portia Mcneal
[2023-06-14 05:00] LABS: ABG PCO2 55.9 mmHg (35-45); ABG PH Result 7.31 (7.35-7.45); Arterial Blood Gas Hematocrit 39.2 % (42-52); Blood Gas Sample Site Brachial, right; Blood Gas Sample Type Arterial; HCO3 ABG 28.3 mmol/L (22-26); Oxygen Device NC; PO2 ABG 60.9 mmHg (80.0-100.0)
[2023-06-14 05:06] LABS: Basophils # 0.1 10^3/uL (0.0-0.1); Basophils % 1.2 %; Eosinophils # 0.8 10^3/uL (0.0-0.8); Eosinophils % 12.4 %; Hematocrit 39.2 % (37-53); Lymphocytes % 15.6 %; Mean Corpuscular HGB Conc 32.1 g/dL (30-55); Mean Corpuscular Hemoglobin 29.4 pg (27-33); Mean Corpuscular Volume 91.6 fl (82-101); Mean Platelet Volume 10.5 fL (7.4-10.4); Monocytes # 0.5 10^3/uL (0.2-0.9); Neutrophils # 4.04 10^3/uL (1.8-7.7); Neutrophils % 61.4 %; Nucleated Red Blood Cells % 0 %; Platelet Count 219 10^3/cmm (157-399); Red Blood Count 4.28 10^6/uL (3.85-5.65); Red Cell Distribution Width 14.4 % (12.1-15.1); White Blood Count 6.59 10^3/uL (3.29-11.43)
[2023-06-14] MEDS: LORazepam 2 mg/mL INJ 1 mL 1 MG IVP (05:09)
[2023-06-14] MEDS: methylPREDNISolone sod succ 125 MG in water for injection-sterile 2 ML 24 MG IVP (05:12)
[2023-06-14] MEDS: ipratropium-albuterol 3 mL Neb INHALATION ×4 (05:31→20:57)
[2023-06-14 05:32] LABS: Lactic Sepsis W/Reflex 0.8 mmol/L (0.5-2.2)
[2023-06-14 05:43] LABS: Alanine Aminotransferase 20 U/L (0-41); Albumin Level 4.6 g/dL (3.5-5.2); Alkaline Phosphatase 67 U/L (40-130); Anion Gap 14.2 (5-19); Aspartate Amino Transferase 21 U/L (0-40); Blood Urea Nitrogen 12 mg/dL (8-23); Carbon Dioxide 27 mmol/L (22-29); Chloride 107 mmol/L (98-107); Glomerular Filtration Rate 83.7 mL/min (90-130); Glucose 100 mg/dL (65-115); NT Pro B Type Natriuretic Pept 73 pg/mL (0-125); Osmolality Calculated 298 mOsm/kg (285-295); Potassium 4.2 mmol/L (3.5-5.1); Sodium 144 mmol/L (136-145); Total Bilirubin 0.4 mg/dL (0.15-1.2); Total Protein 6.6 g/dL (6.6-8.7)
--- NOTE | 2023-06-14 06:47 | PM.HP ---
Providers/Chief Complaint Admitting Physician: Sobeida Love MD Primary Care Provider: Dilshad Anderson DO Chief Complaint: SOB History of Present Illness Jaswant Macdonald is a 67 year old male with history of COPD, not normally on oxygen at home, history of VTE? on Xarelto,?recurrent COPD exacerbations most recently admitted here 05/18-05/20/23 for COPD exacerbation. He is presenting today with c/o worsening shortness of breath over 2-3 days with increased sputum production, 02 requirement He was dyspneic and tachypenic on arrival to ER, placed on BIpap for respiratory support. Abg shows acute and chronic hypercapnea. CXR without infiltrates. Denies chest pain. Review of Systems General: Reports: 10 or more systems reviewed and unremarkable except in HPI and below Const: Denies: fever(s), chills or body aches Eyes: Denies: change in vision, blurry vision or photophobia ENMT: Reports: hoarseness; Denies: throat pain, enlarged tonsils, odynophagia or nasal congestion Card: Denies: chest pain, palpitations, irregular heart rhythm, edema, swelling of feet/ankles, lightheadedness, pre-syncope, dyspnea on exertion or orthopnea Resp: Denies: dyspnea, productive cough, non-productive cough, wheezing, stridor, pain on inspiration, change in phlegm color, hemoptysis or chest congestion GI: Denies: abdominal pain, nausea, vomiting, hematemesis, coffee ground emesis, dysphagia, heartburn, diarrhea, constipation, GI cramping, change in stool character, hematochezia or melena : Denies: flank pain, dysuria, urinary frequency, urinary urgency, urinary hesitancy or hematuria Musc: Denies: neck pain, back pain, extremity pain, joint swelling, joint warmth or deformity Neuro: Denies: headache(s), numbness in extremities, weakness in extremities, sensory changes, difficulty walking, frequent falls, dizziness, vertigo, behavioral changes, Slurred speech present or seizure-like activity Psych: Denies: anxiety, depression, suicidal ideation or homicidal ideation Endo: Denies: polyuria, polydipsia, tired all the time, cold intolerance or hot flashes Fermin/Lymph: Denies: easy bruising or easy bleeding Medications/Allergies Home Medications Medication Instructions Recorded Confirmed Last Taken Type atorvastatin 40 mg tablet 20 mg PO QAM 06/03/22 05/19/23 03/22/23 History rivaroxaban 20 mg tablet 20 mg PO QAM 06/03/22 05/19/23 03/22/23 History sertraline 100 mg tablet 200 mg PO QAM 06/03/22 05/19/23 03/22/23 History budesonide 160 mcg-glycopyr 9 2 inh inhalation BID #10.7 grams 06/15/22 05/19/23 03/22/23 Rx mcg-formot 4.8 mcg/actuation HFA inhaler ([employer]) bismuth subsalicylate 525 mg/15 mL 525 mg PO Q4H PRN Nausea 08/16/22 05/19/23 Unknown History oral suspension clotrimazole-betamethasone 1 1 applic topical PRN PRN Wound Care 08/16/22 05/19/23 Unknown History %-0.05 % topical cream acetaminophen 500 mg tablet 1,000 mg PO Q6H PRN Pain 03/22/23 05/19/23 Unknown History albuterol sulfate 90 mcg/actuation 2 inh inhalation Q6H PRN shortness 03/22/23 05/19/23 Unknown History aerosol inhaler of breath or wheezing buspirone 10 mg tablet 20 mg PO TID 03/22/23 05/19/23 03/22/23 History levalbuterol HCl 1.25 mg/3 mL 1.25 mg inhalation .UP TO 6 TIMES 03/22/23 05/19/23 Unknown History solution for nebulization A DAY gabapentin 300 mg capsule 300 mg PO TID 04/06/23 05/19/23 Unknown History trazodone 50 mg tablet 50 mg PO DAILY 04/06/23 05/19/23 Unknown History ipratropium 0.5 mg-albuterol 3 mg 3 ml inhalation Q6H PRN shortness 04/21/23 05/19/23 Unknown Rx (2.5 mg base)/3 mL nebulization of breath or wheezing #180 mL soln cholecalciferol (vitamin D3) 25 25 mcg PO DAILY 05/19/23 05/19/23 Unknown History mcg (1,000 unit) tablet (Vitamin D3) naproxen 500 mg tablet 500 mg PO BID PRN Pain 05/19/23 05/19/23 Unknown History guaifenesin 400 mg tablet 400 mg PO Q4H PRN congestion #30 05/20/23 Unknown Rx tabs prednisone 20 mg tablet 20 mg PO DAILY #19 tabs 05/20/23 Unknown Rx Allergies Allergy/AdvReac Type Severity Reaction Status Date / Time Penicillins Allergy ALGY-Anaphy Verified 06/14/23 04:46 laxis PFSH Acute PFSH: Medical History Acute exacerbation of chronic obstructive airways disease Anxiety related to PTSD, can be severe, takes benzodiazepines as needed and buspar scheduled Anxiety Chronic anticoagulation xarelto, for history of PE in 2019 COPD (chronic obstructive pulmonary disease) COPD (chronic obstructive pulmonary disease) Erectile dysfunction Exertional dyspnea Fracture of rib (~07/2022) right 10th rib Hearing loss History of cardiovascular stress test 04/2022 false positive History of PFTs 06/2022 Severe airflow obstruction, no post bronchodilator study, lung volumes not measured, moderate gas transfer defect. Consistent with obstructive ventilatory disease. History of smoking 70-100 pack years, quit ~03/2022 Hyperlipidemia Malignant neoplasm of prostate s/p TURP BETH on CPAP Osteoarthritis PTSD (post-traumatic stress disorder) Pulmonary embolism Unprovoked, 2018, on chronic anticoagulation with rivaroxaban, CTA chest 07/2022 with no focal PE identified Surgical History History of appendectomy History of cardiac catheterization 05/2022 [place], no obstructive CAD History of cholecystectomy 2006 History of colonoscopy 2013 no abnormalities History of inguinal hernia repair right History of repair of congenital cleft palate History of thoracotomy trauma from left rib fracture while on anticoagulation History of tonsillectomy History of transurethral resection of prostate 2014, for prostate cancer History of vasectomy with subsequent failed reversal Family History Father Stroke Dementia CAD (coronary artery disease) Other Anxiety Social History Smoking and tobacco/nicotine status: former use of tobacco/nicotine (1 cig/day) Quit status (tobacco/nicotine): has quit using Former quit date comment: 03/2022 Alcohol intake: current Alcohol intake frequency: few times a week Alcohol type: hard liquor Substance/Drug Use: current Substance/Drug use frequency: Special occassions/opportunity only Household members: spouse Marital status: service: Yes status details: 15 years [employer], 5 years [employer], 100% service connected Vitals/I&O/Wt Last Vital Signs Temp 98.0 F 06/14/23 04:40 Pulse 91 06/14/23 06:28 Resp 21 H 06/14/23 06:28 BP 129/81 06/14/23 06:28 Pulse Ox 99 06/14/23 06:28 O2 Del Method BiPAP 06/14/23 06:28 O2 Flow Rate 3 06/14/23 04:56 FiO2 35 06/14/23 06:28 06/13/23 06/13/23 06/14/23 14:59 22:59 06:59 Intake Total 2 / 2 Balance 2 / 2 Weight last 48 hrs Weight 113.398 kg Physical Exam Narrative: General: current;y on Bipap, AO x3 HEENT: PERRLA, pupils bilaterally equal and reactive, pallors not present Chest: Wheezing to auscultation B/L CVS: S1-S2 regular, no murmurs, no tachycardia, no gallops, no rubs Abdomen: Soft, nontender, no organomegaly, bowel sounds present Data 06/14/23 04:51 06/14/23 04:51 Micro: Microbiology 06/14/23 05:07 Blood Culture - Preliminary Blood SPECIMEN COLLECTED 06/14/23 05:13 Blood Culture - Preliminary Blood SPECIMEN COLLECTED ABG Interpretation 1: 06/14/23 04:55 ABG pH 7.31 L ABG pCO2 55.9 H ABG pO2 60.9 L ABG HCO3 28.3 H ABG Base Excess 1.0 A&P Assessment and plan (1) Acute respiratory failure with hypoxia and hypercapnia: (2) Acute exacerbation of chronic obstructive airways disease: Plan Admit to med.surg for acute on chronic COPD exacerbation with hypoxia and hypercapnea. dexamethasone 6mg IVP q12h duoneb q6h, budesonide q12h scheduled nebulization CXR without consolidation per my interpretation check respiratory viral panel Low suspicion PE given chronically anticoagulated with Xarelto attempt to wean Bipap as tolerated Attestations Medical Necessity Statement*: > 2 midnight admission anticipated for COPD exacerbation Coding Level of Care Code Acute Code for Chg Fwd Moderate MDM includes number and complexity of problems actively addressed during encounter, amount and/or complexity of data reviewed/ordered and described risk of complication, morbidity or mortality of management as documented Diagnoses Acute respiratory failure with hypoxia and hypercapnia J96.01; J96.02 Acute exacerbation of chronic obstructive airways disease J44.1
--- NOTE | 2023-06-14 06:59 | PC.PHAR ---
[facility] IS [facility]. [facility] 6:55 AM 06/14/23
[2023-06-14 07:04] LABS: Adenovirus Not Detected (NOT DETECT); Chlamydia Pneumoniae Not Detected (NOT DETECT); Coronavirus 229E,HKU1,NL63,OC4 Not Detected (NOT DETECT); Human Metapneumovirus Not Detected (NOT DETECT); Human Rhinovirus/Enterovirus Not Detected (NOT DETECT); Influenza A Not Detected (NOT DETECT); Influenza A H1 Not Detected (NOT DETECT); Influenza A H1-2009 Not Detected (NOT DETECT); Influenza A H3 Not Detected (NOT DETECT); Influenza B Not Detected (NOT DETECT); Mycoplasma Pneumoniae Not Detected (NOT DETECT); Parainfluenza Virus Type 1 Not Detected (NOT DETECT); Parainfluenza Virus Type 2 Not Detected (NOT DETECT); Parainfluenza Virus Type 3 Not Detected (NOT DETECT); Parainfluenza Virus Type 4 Not Detected (NOT DETECT); Respiratory Syncytial Virus A Not Detected (NOT DETECT); Respiratory Syncytial Virus B Not Detected (NOT DETECT); SARS-COV-2 Not Detected (NOT DETECT)
[2023-06-14] MEDS: budesonide 0.5 mg/2 mL Neb INHALATION ×2 (10:11→20:57)
--- NOTE | 2023-06-14 10:11 | W.PM.EVENTAC ---
Event Note Event Note: I have picked up the patient as the attending. I discussed his presentation, and did a quick physical exam. Added doxycycline. Awaiting medicine reconciliation. Explained current course of treatment. He is on CPAP at home when sleeping.
[2023-06-14] MEDS: gabapentin 300 mg Capsule PO ×3 (10:29→21:37)
[2023-06-14] MEDS: BuSPIRONE 10 mg Tablet 20 MG PO ×3 (10:29→21:37)
[2023-06-14] MEDS: doxycycline 100 mg Tablet PO ×2 (10:29→18:31)
[2023-06-14] MEDS: dexamethasone 4 mg/mL INJ 6 MG IVP ×2 (10:30→22:18)
[2023-06-14] MEDS: pantoprazole DR 40 mg Tablet PO (10:30)
[2023-06-14] MEDS: acetaminophen 325 mg Tablet 650 MG PO (21:37)
[2023-06-14] MEDS: trazodone 50 mg Tablet PO (21:37)
[2023-06-15] VITALS (15 sets, daily range): BP systolic 108–141; BP diastolic 55–76; PULSE 70–116; RESP 16–22; TEMP 36.4–36.9; O2SAT 93–97
[2023-06-15 05:00] LABS: Basophils % 0.3 %; Eosinophils % 0.1 %; Hematocrit 35.8 % (37-53); Lymphocytes # 0.5 10^3/uL (0.8-4.8); Lymphocytes % 6.3 %; Mean Corpuscular HGB Conc 32.4 g/dL (30-55); Mean Corpuscular Hemoglobin 29.7 pg (27-33); Mean Corpuscular Volume 91.6 fl (82-101); Mean Platelet Volume 10.2 fL (7.4-10.4); Monocytes # 0.4 10^3/uL (0.2-0.9); Monocytes % 4.9 %; Neutrophils # 6.34 10^3/uL (1.8-7.7); Neutrophils % 87.2 %; Nucleated Red Blood Cells % 0 %; Platelet Count 209 10^3/cmm (157-399); Red Blood Count 3.91 10^6/uL (3.85-5.65); Red Cell Distribution Width 14.3 % (12.1-15.1); White Blood Count 7.28 10^3/uL (3.29-11.43)
[2023-06-15] MEDS: rivaroxaban 10 mg Tablet 20 MG PO (05:08)
[2023-06-15] MEDS: atorvastatin 40 mg Tablet 20 MG PO (05:08)
[2023-06-15] MEDS: sertraline 100 mg Tablet 200 MG PO (05:08)
[2023-06-15 05:27] LABS: Alanine Aminotransferase 17 U/L (0-41); Albumin Level 4.3 g/dL (3.5-5.2); Alkaline Phosphatase 57 U/L (40-130); Anion Gap 11.8 (5-19); Aspartate Amino Transferase 16 U/L (0-40); Blood Urea Nitrogen 15 mg/dL (8-23); Calcium 9.3 mg/dL (8.5-10.5); Carbon Dioxide 28 mmol/L (22-29); Chloride 106 mmol/L (98-107); Globulin 1.7 g/dL (1.3-4.6); Glomerular Filtration Rate 95.8 mL/min (90-130); Glucose 134 mg/dL (65-115); Osmolality Calculated 295 mOsm/kg (285-295); Potassium 4.8 mmol/L (3.5-5.1); Sodium 141 mmol/L (136-145); Total Bilirubin 0.3 mg/dL (0.15-1.2)
[2023-06-15 06:29] LABS: Glucose Point of Care 110 mg/dL (70-110)
[2023-06-15] MEDS: pantoprazole DR 40 mg Tablet PO (08:31)
[2023-06-15] MEDS: gabapentin 300 mg Capsule PO ×3 (08:31→21:23)
[2023-06-15] MEDS: BuSPIRONE 10 mg Tablet 20 MG PO ×3 (08:31→21:23)
[2023-06-15] MEDS: doxycycline 100 mg Tablet PO ×2 (08:31→18:09)
[2023-06-15] MEDS: budesonide 0.5 mg/2 mL Neb INHALATION ×2 (08:36→19:18)
[2023-06-15] MEDS: ipratropium-albuterol 3 mL Neb INHALATION ×3 (08:36→19:18)
[2023-06-15] MEDS: predniSONE 20 mg Tablet 40 MG PO (08:39)
--- NOTE | 2023-06-15 08:48 | P.PN_ITS ---
Subjective Subjective: Jaswant reports his breathing is a little bit better but he is still wheezing a significant amount. He is not for sure if he needs the 2 L of oxygen he is on currently. He refuses cardiac diet. Would like placed on a regular diet. Medications: Reviewed: Yes Vitals/I&O/Wt Last Vital Signs Temp 97.6 F 06/15/23 07:33 Pulse 89 06/15/23 08:00 Resp 18 06/15/23 08:00 BP 129/65 06/15/23 07:33 Pulse Ox 94 06/15/23 08:00 O2 Del Method Nasal Cannula 06/15/23 08:00 O2 Flow Rate 2 06/15/23 08:00 FiO2 30 06/15/23 02:00 06/14/23 06/15/23 06/15/23 22:59 06:59 14:59 Intake Total 240 / 480 Output Total 600 / 600 Balance 240 / 480 -600 / -120 Weight last 48 hrs Weight 113.398 kg Physical Exam Narrative: General exam no distress Neck is supple Cardiovascular regular rate and rhythm Lungs bilateral expiratory wheezes Abdomen is soft with positive bowel sounds Extremities no cyanosis clubbing or edema Data 06/15/23 04:52 06/15/23 04:52 Micro: Microbiology 06/14/23 05:07 Blood Culture - Preliminary Blood NEGATIVE TO DATE 06/14/23 05:13 Blood Culture - Preliminary Blood NEGATIVE TO DATE A&P Assessment and plan (1) Acute respiratory failure with hypoxia and hypercapnia: Improving. Hopefully can taper off oxygen today. Home oxygen evaluation prior to discharge. (2) Acute exacerbation of chronic obstructive airways disease: Change IV steroids to p.o. steroids Continue pulmonary toilet with DuoNeb every 4 hours, budesonide twice daily Continue doxycycline 100 mg twice daily Possible discharge tomorrow if continues to improve Reviewed tomorrow morning if he needs any laboratory. Plan Past history of pulmonary embolism. Continue rivaroxaban Full code Rivaroxaban will serve for DVT prophylaxis as well. Attestations Medical Necessity Statement*: Needs continued hospitalization for further pulmonary toilet, transition to p.o. medicines, wean off oxygen if possible Coding Level of Care Code Acute Code for [facility] Fwd Diagnoses Acute respiratory failure with hypoxia and hypercapnia J96.01; J96.02 Acute exacerbation of chronic obstructive airways disease J44.1
--- NOTE | 2023-06-15 09:58 | PC.CHAP ---
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 [] Patient/Family/Request visit [] Outpatient visit [] Follow-up visit [] Physician referral [] Code/Alert [x] Routine visit [] Staff referral [] Actively dying [] Patient sleeping [] Family support [] [] Out of room [] Palliative care [] [] Receiving care in room [] Pre-surgical visit [] Trauma [] Long length of stay [] ICU visit [] Other: Relational/Emotional Strength [x] Patient feels connected with others/family/visitors/staff [] Distress [] Loneliness/isolation [] Abandonment Spirituality of Patient [x] Person of [place] [] Attends Latter Day of their [place] [x] Believes in Prayer [] Reads Bible or Lutheran materials [] There are Spiritual issues to be addressed Screw 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 Swiss Type Interventions [x] Prayer [x] Active listening [] Non-anxious presence [x] Spiritual/emotional support [] Crisis/trauma care [] Spiritual counseling [] Bereavement support [] Provided bereavement packet [] Provided Bible/devotional materials [] Provided toy/stuffed animal, coloring book to patient or family member [] Provided Communion [] Anointing/[place] [] Salvation [x] Completed spiritual assessment [] Other: Impact on Illness or Injury [] Angry [] Fearful [] Anxious [] Often cries [] Exhaustion [] Unable to work [] Unable to attend taoist [] Unable to walk/stand [] Unable to read [] Unable to drive [] Unable to eat/drink [] Unable to sleep [] Unable to be with family [] Patient intubated [] Other: Summary Time spent with patient 5 min
[2023-06-15] MEDS: trazodone 50 mg Tablet PO (21:23)
[2023-06-16] VITALS (8 sets, daily range): BP systolic 107–126; BP diastolic 64–68; PULSE 59–80; RESP 15–20; TEMP 36.4–36.9; O2SAT 93–99
[2023-06-16] MEDS: ipratropium-albuterol 3 mL Neb INHALATION ×3 (01:32→13:12)
[2023-06-16] MEDS: rivaroxaban 10 mg Tablet 20 MG PO (06:10)
[2023-06-16] MEDS: sertraline 100 mg Tablet 200 MG PO (06:10)
[2023-06-16] MEDS: atorvastatin 40 mg Tablet 20 MG PO (06:11)
[2023-06-16] MEDS: budesonide 0.5 mg/2 mL Neb INHALATION (07:26)
[2023-06-16] MEDS: predniSONE 20 mg Tablet 40 MG PO (08:33)
[2023-06-16] MEDS: pantoprazole DR 40 mg Tablet PO (08:33)
[2023-06-16] MEDS: doxycycline 100 mg Tablet PO (08:33)
[2023-06-16] MEDS: gabapentin 300 mg Capsule PO (08:33)
[2023-06-16] MEDS: BuSPIRONE 10 mg Tablet 20 MG PO (08:33)
--- NOTE | 2023-06-16 10:41 | PC.CHAP ---
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 plant accountant visit [x] Patient/Family/Request visit [] Outpatient visit [] Follow-up visit [] Physician referral [] Code/Alert [] Routine visit [] Staff referral [] Actively dying [] Patient sleeping [] Family support [] [] Out of room [] Palliative care [] [] Receiving care in room [] Pre-surgical visit [] Trauma [] Long length of stay [] ICU visit [] Other: Relational/Emotional Strength [] Patient feels connected with others/family/visitors/staff [] Distress [] Loneliness/isolation [] Abandonment Spirituality of Patient [] Person of [place] [] Attends Episcopal of their [place] [] Believes in Prayer [] Reads Bible or Protestant materials [] There are Spiritual issues to be addressed Clinical Document Improvement Educator Interventions [x] Prayer []x Active listening [] Non-anxious presence [x] Spiritual/emotional support [] Crisis/trauma care [x] Spiritual counseling [] Bereavement support [] Provided bereavement packet [] Provided Bible/devotional materials [] Provided toy/stuffed animal, coloring book to patient or family member [] Provided Communion [] Anointing/[place] [] Salvation [] Completed spiritual assessment [] Other: Impact on Illness or Injury [] Angry [] Fearful [] Anxious [] Often cries [] Exhaustion [] Unable to work [] Unable to attend spiritism [] Unable to walk/stand [] Unable to read [] Unable to drive [] Unable to eat/drink [] Unable to sleep [] Unable to be with family [] Patient intubated [] Other: Summary patient satruggling with addiction Time spent with patient 15 min
--- NOTE | 2023-06-16 11:18 | P.DS_ITS ---
Discharge Providers Date of Admission: 06/14/23 06:06 Date of Discharge: June 16, 2023 Attending Provider at Admission: Sobeida Love MD Attending Provider at Discharge: Vicente Orr MD Primary Care Provider: Dilshad Anderson DO Diagnoses at Discharge Discharge Diagnosis (1) Acute respiratory failure with hypoxia and hypercapnia: Status: Acute (2) Acute exacerbation of chronic obstructive airways disease: Status: Acute Reason for Visit Reason for Visit: SOB Hospital Course Hospital Course Jaswant is a 67-year-old white male with known severe COPD that presented with acute respiratory failure with increased wheezing and acute COPD exacerbation. He was started on BiPAP in the emergency department secondary to elevated CO2, and work of breathing. He was given IV steroids, p.o. doxycycline, and received pulmonary toilet in the form of DuoNeb and budesonide. With these treatments he improved significantly and and was able to be discharged on June 16. At home oxygen evaluation will be done prior to discharge. There was no evidence of pneumonia on his x-rays. On discharge he will finish up a course of prednisone, and a course of doxycycline. After doxycycline has been completed he is to start Zithromax 3 times weekly as previously discussed with his configuration analyst. He will follow-up with his primary care provider 3 to 5 days, pulmonary 2 weeks. Physical Exam Narrative: General exam no distress Neck is supple Cardiovascular regular rate and rhythm Lungs markedly diminished breath sounds bilaterally but no wheezing Abdomen is soft Extremities no cyanosis clubbing or edema Discharge Data Studies Completed and Pending Completed Studies During Hospitalization Category Date Time Status XR chest 1V portable [id number] Stat Exams 06/14/23 04:50 Completed Pending at discharge Category Date Time Status Blood Culture Stat Lab 06/14/23 05:07 Results Radiology Impressions Chest X-Ray 06/14/23 04:50 IMPRESSION: No acute findings. Laboratory Results WBC 7.28 10^3/uL (3.29-11.43) 06/15/23 04:52 RBC 3.91 10^6/uL (3.85-5.65) 06/15/23 04:52 Hgb 11.60 g/dL (11.27-16.99) 06/15/23 04:52 Hct 35.8 % (37-53) L 06/15/23 04:52 MCV 91.6 fl (82-101) 06/15/23 04:52 MCH 29.7 pg (27-33) 06/15/23 04:52 MCHC 32.4 g/dL (30-55) 06/15/23 04:52 RDW 14.3 % (12.1-15.1) 06/15/23 04:52 Plt Count 209 10^3/cmm (157-399) 06/15/23 04:52 MPV 10.2 fL (7.4-10.4) 06/15/23 04:52 Neut % (Auto) 87.2 % 06/15/23 04:52 Lymph % (Auto) 6.3 % 06/15/23 04:52 [place]ing % (Auto) 4.9 % 06/15/23 04:52 Eos % (Auto) 0.1 % 06/15/23 04:52 Baso % (Auto) 0.3 % 06/15/23 04:52 Neut # (Auto) 6.34 10^3/uL (1.8-7.7) 06/15/23 04:52 Lymph # (Auto) 0.5 10^3/uL (0.8-4.8) L 06/15/23 04:52 Harding # (Auto) 0.4 10^3/uL (0.2-0.9) 06/15/23 04:52 Eos # (Auto) 0.0 10^3/uL (0.0-0.8) 06/15/23 04:52 Baso # (Auto) 0.0 10^3/uL (0.0-0.1) 06/15/23 04:52 Nucleated RBC % (auto) 0 % 06/15/23 04:52 Nucleated RBCs # 0.0 /100WBC 06/15/23 04:52 Specimen Type Arterial 06/14/23 04:55 Sample Site Brachial, right 06/14/23 04:55 ABG pH 7.31 (7.35-7.45) L 06/14/23 04:55 ABG pCO2 55.9 mmHg (35-45) H 06/14/23 04:55 ABG pO2 60.9 mmHg (80.0-100.0) L 06/14/23 04:55 ABG HCO3 28.3 mmol/L (22-26) H 06/14/23 04:55 ABG Base Excess 1.0 mmol/L (-2.0-2.0) 06/14/23 04:55 Tarun Test N/a 06/14/23 04:55 Hematocrit 39.2 % (42-52) L 06/14/23 04:55 O2 Delivery Device Nc 06/14/23 04:55 O2 Liters/Min 2.0 % 06/14/23 04:55 Sash Repairer ID [email or web address] 06/14/23 04:55 Sodium 141 mmol/L (136-145) 06/15/23 04:52 Potassium 4.8 mmol/L (3.5-5.1) 06/15/23 04:52 Chloride 106 mmol/L (98-107) 06/15/23 04:52 Carbon Dioxide 28 mmol/L (22-29) 06/15/23 04:52 Anion Gap 11.8 (5-19) 06/15/23 04:52 BUN 15 mg/dL (8-23) 06/15/23 04:52 Creatinine 0.8 mg/dL (0.7-1.2) 06/15/23 04:52 GFR Calculation 95.8 mL/min (90-130) 06/15/23 04:52 Glucose 134 mg/dL (65-115) H 06/15/23 04:52 POC Glucose 110 mg/dL (70-110) 06/15/23 06:22 Calculated Osmolality 295 mOsm/kg (285-295) 06/15/23 04:52 Lactic Acid 0.8 mmol/L (0.5-2.2) 06/14/23 04:57 Calcium 9.3 mg/dL (8.5-10.5) 06/15/23 04:52 Total Bilirubin 0.3 mg/dL (0.15-1.2) 06/15/23 04:52 AST 16 U/L (0-40) 06/15/23 04:52 ALT 17 U/L (0-41) 06/15/23 04:52 Alkaline Phosphatase 57 U/L (40-130) 06/15/23 04:52 NT-Pro-B Natriuret Pep 73 pg/mL (0-125) 06/14/23 04:51 Total Protein 6.0 g/dL (6.6-8.7) L 06/15/23 04:52 Albumin 4.3 g/dL (3.5-5.2) 06/15/23 04:52 Globulin 1.7 g/dL (1.3-4.6) 06/15/23 04:52 Nasal Influ A H1 2009 PCR Not detected (NOT DETECT) 06/14/23 05:12 Adenovirus (PCR) Not detected (NOT DETECT) 06/14/23 05:12 C. pneumoniae DNA (PCR) Not detected (NOT DETECT) 06/14/23 05:12 Coronavirus 229E (PCR) Not detected (NOT DETECT) 06/14/23 05:12 Human Metapneumovir PCR Not detected (NOT DETECT) 06/14/23 05:12 Influenza A (H1) PCR Not detected (NOT DETECT) 06/14/23 05:12 Influenza A (H3) PCR Not detected (NOT DETECT) 06/14/23 05:12 Influenza Type A (PCR) Not detected (NOT DETECT) 06/14/23 05:12 Influenza Type B (PCR) Not detected (NOT DETECT) 06/14/23 05:12 M. pneumoniae (PCR) Not detected (NOT DETECT) 06/14/23 05:12 Parainfluenza 1 (PCR) Not detected (NOT DETECT) 06/14/23 05:12 Parainfluenza 2 (PCR) Not detected (NOT DETECT) 06/14/23 05:12 Parainfluenza 3 (PCR) Not detected (NOT DETECT) 06/14/23 05:12 Parainfluenza 4 (PCR) Not detected (NOT DETECT) 06/14/23 05:12 RSV Type A (PCR) Not detected (NOT DETECT) 06/14/23 05:12 RSV Type B (PCR) Not detected (NOT DETECT) 06/14/23 05:12 Entero/Rhino (PCR) Not detected (NOT DETECT) 06/14/23 05:12 SARS-CoV-2 (PCR) Not detected (NOT DETECT) 06/14/23 05:12 Vitals Last Vital Signs Temp 97.5 F L 06/16/23 08:00 Pulse 70 06/16/23 08:00 Resp 16 06/16/23 08:00 BP 107/68 06/16/23 08:00 Pulse Ox 94 06/16/23 10:54 O2 Del Method Room Air 06/16/23 08:00 O2 Flow Rate 2 06/15/23 08:00 FiO2 30 06/16/23 04:15 Discharge Plan Discharge Patient Disposition: Home Condition: Stable Prescriptions: New prednisone 20 mg Tablet 40 mg PO DAILY Qty: 6 0RF doxycycline monohydrate 100 mg Tablet 100 mg PO BID Qty: 14 0RF Zithromax 250 mg tablet 250 mg PO QMWF 30 Days Qty: 13 0RF Rx Instructions: Take 3 times weekly, starting after doxycycline Continued rivaroxaban 20 mg tablet 20 mg PO QAM Rx Instructions: must administer with evening meal sertraline 100 mg tablet 200 mg PO QAM atorvastatin 40 mg tablet 20 mg PO QAM ipratropium-albuterol 0.5 mg-3 mg(2.5 mg base)/3 mL solution for nebulization 3 ml inhalation Q6H PRN (Reason: shortness of breath or wheezing) Qty: 180 3RF hydroxyzine HCl 50 mg tablet 50 mg PO BID PRN (Reason: UNKNOWN) sildenafil 100 mg Tablet See Rx Instructions .ROUTE .COMPLEX PRN (Reason: Erectile Dysfunction) Rx Instructions: Take one-half tablet by mouth 1 hour prior to sexual activity for erectile dysfunction as needed. limit 6 doses per 30 days Vitamin D3 25 mcg (1,000 unit) Tablet 25 mcg PO DAILY diclofenac sodium 1 % Gel 2 g TOPICAL QID Rx Instructions: Apply 2 grams to affected area(s) 4 times daily as needed for pain. do not exveed more than 16 grams daily to any lower extremity joint. Not more than 8 grams daily to any upper extremity joint. Max 32 grams per day over all joints. Measure dose with ruler attached inside box. Jazlynabdicrystali Aerosphere 160-9-4.8 mcg/actuation Hfa Aerosol Inhaler 2 inh INHALATION BID levalbuterol HCl 1.25 mg/3 mL Solution For Nebulization 1.25 mg INHALATION .UP TO 6 TIMES A DAY albuterol sulfate 90 mcg/actuation HFA aerosol inhaler 2 inh INHALATION Q6H PRN (Reason: shortness of breath or wheezing) trazodone 50 mg Tablet 50 mg PO BEDTIME gabapentin 300 mg capsule 300 mg PO TID Discontinued naproxen 500 mg tablet 500 mg PO BID PRN (Reason: Pain) methylprednisolone 4 mg tablets,dose pack See Rx Instructions .ROUTE .COMPLEX Rx Instructions: PER PACKAGE INSTRUCTIONS FOR COPD. TAKE 6 TABLETS ON DAY ONE THEN DECREASE BY ONE TABLET DAILY UNTIL GONE. Discharge Orders: Discharge Order (Routine); Ordered 06/16/23 Ordered By: Vicente Orr Referrals: Datar,Ronal Garcia MD [Physician] - 2 weeks (We have notified your physician's clinic of the need for a follow-up appointment to be scheduled. If you have not heard from them within the next 2 business days, please call them directly. You may also reach out to our assurance services manager health care at [phone] and she can assist you.) Dilshad Anderson, [Primary Care Provider] - 06/23/23 11:30 am Patient Instructions: COPD, Doxycycline (By mouth), Prednisone (By mouth), Azithromycin (By mouth) (Zithromax, Zithromax Tri-Otilio, Zithromax..., COPD Stoplight, Opioid Safety Activity Restrictions/Additional Instructions: Take all medicine as prescribed Follow-up with your primary care provider 3 to 5 days, pulmonary 2 weeks After finishing doxycycline please take Zithromax 3 times weekly Return for any concerns Discharge Attestations Time Spent in Discharge Care*: greater than 30 min Quality Metrics Clinical Quality Measures [ No reported AMI, CVA or VTE this stay] Coding Level of Care Code 37031 Total time (in minutes) for Discharge: 38 Diagnoses Acute respiratory failure with hypoxia and hypercapnia J96.01; J96.02 Acute exacerbation of chronic obstructive airways disease J44.1
--- NOTE | 2023-06-16 12:55 | PC.SOCIAL ---
IMM Update pg 2 of IMM updated and reviewed w/ patient. Copy provided and copy dated, initialed and placed in chart.
== END 2023-06-16 13:22 | disposition home or self-care (01) | DRG 189 ==
LOC: ER 06:18 → MEDSURG 06:24
PROVIDERS: Admitting Provider Student in an Organized Health Care Education/Training Program; Emergency Provider Emergency Medicine; PCP Emergency Medicine Emergency Medical Services; Visit Provider Internal Medicine
DX: J96.01 Acute respiratory failure with hypoxia (principal); J44.1 Chronic obstructive pulmonary disease with (acute) exacerbation; J96.02 Acute respiratory failure with hypercapnia; Z87.891 Personal history of nicotine dependence; F41.9 Anxiety disorder, unspecified; Z86.711 Personal history of pulmonary embolism; Z79.01 Long term (current) use of anticoagulants; N52.9 Male erectile dysfunction, unspecified; H91.90 Unspecified hearing loss, unspecified ear; E78.5 Hyperlipidemia, unspecified; G47.33 Obstructive sleep apnea (adult) (pediatric); Z99.89 Dependence on other enabling machines and devices; M19.90 Unspecified osteoarthritis, unspecified site; F43.10 Post-traumatic stress disorder, unspecified
CPT/HCPCS: 36415; 36416; 36600; 71045; 80053; 82803; 82962; 83605; 83880; 85025; 87040; 87486; 87581; 87633; 93005; 94640; 94660; 94760; 94762; 96374; 96375; 99285; J1100; J2060; J2930; J7512; J7626